=== PATIENT | female | born 1945 | race Caucasian/White ===

== ENCOUNTER 2019-04-29 09:46 | Outpatient (CLI) | payer MEDICARE, SELFPAY ==
--- NOTE | ~2019-04-29 | MM_ITS ---
EXAMINATION: MM screening stefanie BI w kaylah HISTORY: Screening mammogram, family history of breast cancer in her mother. TECHNIQUE: Craniocaudal and mediolateral oblique 3-D tomosynthesis images were obtained and synthetic 2-D images were generated. CAD analysis was submitted and interpreted. COMPARISON: 04/01/2018, 03/19/2017, 03/12/2016 BREAST PARENCHYMAL COMPOSITION: There are scattered areas of fibroglandular density. FINDINGS: Masses of the lower left breast have slowly decreased in size over multiple examinations, c onsistent with benign findings. There is no evidence of suspicious mass, calcification, or architectu ral distortion to suggest malignancy in either breast. There has been no suspicious interval change. IMPRESSION: 1. No mammographic evidence of malignancy. 2. Recommend routine screening mammography in one year. BI-RADS Category 2: Benign finding(s). Reviewed, dictated and finalized at location A. 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
== END 2019-04-29 09:47 | disposition home or self-care (01) ==
LOC: ANHIMG 09:57
PROVIDERS: PCP Family Medicine; Visit Provider Obstetrics & Gynecology
DX: Z12.31 Encounter for screening mammogram for malignant neoplasm of breast (principal)
CPT/HCPCS: 77063; 77067

== ENCOUNTER 2019-06-22 07:48 | Observation (INO) | payer MEDICARE, SELFPAY ==
[2019-06-22] VITALS (22 sets, daily range): BP systolic 102–142; BP diastolic 44–95; PULSE 60–86; RESP 10–20; TEMP 36.3–37.5; O2SAT 92–99
--- NOTE | ~2019-06-22 | US_ITS ---
EXAMINATION: US right upper quadrant DATE: 06/22/2019 09:39 INDICATION: Right upper quadrant abdominal pain, nausea and vomiting. TECHNIQUE: Multiple grayscale and Doppler ultrasound images of the abdomen were obtained. COMPARISON: None FINDINGS: The pancreas is normal in appearance. Portions of the pancreatic head and tail are poorly visualized. Liver has normal echogenicity and contour, with a smooth surface. No liver lesion identified. No int rahepatic biliary duct dilation suspected. Portal venous flow was seen in the hepatopetal, normal dir ection and has normal Doppler waveform. The gallbladder is normal in appearance. 2.6 x 2.0 x 1.6 cm a t the neck of the gallbladder which is dilated to 10.7 x 3.4 cm which is without evident wall thicken ing. Sonographic Voss sign was reported as positive by the mathematical scientist. The common bile duct measur es up to 6 mm which is within normal limits for age, tapering smoothly in the distal duct. The proxim al inferior vena cava and aorta are normal. Visualized portions of the right kidney demonstrates norm al echogenicity with no hydronephrosis. IMPRESSION: 1. Gallstone at the neck of the distended but otherwise normal-appearing gallbladder with positive so nographic Voss sign. Findings would be consistent with early acute cholecystitis. Reviewed, dictated and finalized at location A. IMPRESSION: 1. Gallstone at the neck of the distended but otherwise normal-appearing gallbl adder with positive sonographic Voss sign. Findings would be consistent with early acute cholecystitis.
--- NOTE | 2019-06-22 07:55 | PC.NURSE ---
Spoke with Estela at this time who informed that pt can only be tested if she is admitted for pneumonia and to keep her updated on pt status. 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
--- NOTE | 2019-06-22 08:18 | ED.ABDPAIN ---
HPI - Abdominal Pain General Chief Complaint: Abdominal Pain Stated Complaint: Gallbladder attack Time Seen by Provider: 06/22/19 07:51 Source: patient and RN notes reviewed Mode of arrival: ambulatory Limitations: no limitations History of Present Illness HPI narrative: A 73 y/o female pt has presented to the ED with c/o upper abdominal pain that radiates to her lower back after being referred by Dr. Westfall with concerns of gallbladder issues. Pt notes that the pain began last night at 23:30, and states that the pain is a 10/10 in severity. Pt states that she has a little associated diarrhea, but she notes that she has a h/o c diff for 2 years. She has been told that 10% of the c diff is still present. Pt denies any factors that make the pain worse, but notes that her pain subsided for 3 hours after taking 2 Tylenol, another pain medication pill, and lying on a heating pad. She denies CP, N/V, dysuria, frequency, hematuria, GONZALEZ, fever, or chills. She does state that 2 weeks ago she experienced vomiting. She notes a h/o HTN, hypothyroidism, cataracts, knee surgeries, and recent travel to [place]. Pt denies a h/o HLD, smoking, or drinking. MD elicited complaint: abdominal pain Pertinent past history: other (C diff for 2 year) Onset (ago): hour(s) (8) Location: other (upper) Severity: severe Pain scale (0-10): 10 Radiation: back (lower) Exacerbating factors: nothing Relieving factors: other (taking Tylenol, another pain medication pill, and lying on a heating pack) Associated symptoms: diarrhea Related Data Patient : No Home Medications Medication Instructions Recorded Confirmed Saccharomyces boulardii 250 mg 250 mg PO BID 05/21/19 capsule aspirin 81 mg tablet,delayed 81 mg PO DAILY 05/21/19 release cholecalciferol (vitamin D3) 10 10 mcg PO DAILY 05/21/19 mcg (400 unit) capsule levothyroxine 75 mcg tablet 75 mcg PO DAILY 05/21/19 cholestyramine (with sugar) 4 g PO BID 06/22/19 vancomycin 125 mg PO TID 06/22/19 Allergies Allergy/AdvReac Type Severity Reaction Status Date / Time No Known Allergies Allergy Verified 06/22/19 08:04 Review of Systems Review of Systems: All systems reviewed & are unremarkable except as noted in HPI and below Constitutional: Constitutional: Denies chills and Denies fever(s) Cardiovascular: Cardiovascular: Denies chest pain Gastrointestinal: Gastrointestinal: Reports abdominal pain (upper), Reports diarrhea, Denies nausea and Denies vomiting (2 weeks ago experienced vomiting) Genitourinary: Genitourinary: Denies hematuria, Denies nocturia and Denies dysuria Musculoskeletal: Musculoskeletal: Reports back pain (lower) Neurologic: Denies headache(s) PMFSH Past Medical History Medical History Anemia in chronic illness C. difficile colitis Family history of malignant neoplasm of breast Fatigue Fibroids H/O cataract HTN (hypertension) Hypothyroidism Hypothyroidism (acquired) Insomnia due to anxiety and fear Leiomyoma of uterus, unspecified Phobic anxiety disorder, unspecified Rectal polyp Surgical History Surgical History H/O hemorrhoidectomy History of knee surgery Family History Family History Sibling Hypertension Father Cerebrovascular accident Patient's father is , Onset Age: 90 Mother Family history of malignant neoplasm of breast in first degree relative, Onset Age: 48 Family history of cardiovascular disease Social History Social History Smoking status: Never smoker Alcohol intake: current Substance use: never Exam Narrative: Exam Narrative: GENERAL: Uncomfortable-appearing, well-nourished, and in no acute distress. HEAD: Normocephalic, atraumatic. ENT: Mucous membranes moist. CHEST: Shiv
[2019-06-22] MEDS: MORPHINE SULFATE 4 MG/ML INJ IV PUSH ×2 (08:34→10:45)
[2019-06-22] MEDS: ONDANSETRON INJ 4 MG/2 ML VIAL IV PUSH (08:40)
[2019-06-22 08:45] LABS: Basophils Percent Auto 0.3 % (0.2-1.2); Eosinophils Absolute Auto 0.1 K/mm3 (0-0.3); Eosinophils Percent Auto 0.6 % (0-4.4); Hematocrit 36.7 % (37.0-47.0); Hemoglobin 11.4 g/dL (12.0-15.0); Immature Granulocyte Absolute 0.03 K/mm3 (0.00-0.031); Immature Granulocyte Percent A 0.4 % (0-0.5); Lymphocytes Absolute Auto 1.48 K/mm3 (0.9-3.2); Mean Corpuscular HGB Conc 31.1 g/dl (32-36); Mean Corpuscular Hemoglobin 26.5 pg (26-34); Mean Corpuscular Volume 85.3 fl (80-100); Mean Platelet Volume 11.1 fl (7.4-10.4); Monocytes Absolute Auto 0.5 K/mm3 (0.1-0.6); Neutrophils Absolute Auto 5.7 K/mm3 (1.3-6.7); Neutrophils Percent Auto 73.7 % (45.5-73.1); Platelet Count Result 263 k/mm3 (150-375); Red Cell Distribution Width 14.5 % (11.5-14.5); White Blood Count 7.8 K/mm3 (4.5-10.0)
[2019-06-22 08:54] LABS: Potassium 3.7 mmol/L (3.4-5.0)
[2019-06-22 08:57] LABS: Alanine Aminotransferase 13 U/L (4-35); Albumin Level 4.2 g/dL (3.5-5.1); Alkaline Phosphatase 94 U/L (38-126); Aspartate Amino Transferase 22 U/L (14-36); Bilirubin,Total 0.4 mg/dL (0.2-1.3); Blood Urea Nitrogen 9 mg/dL (7-17); Calcium 8.9 mg/dL (8.4-10.2); Carbon Dioxide 26 mmol/L (22-30); Chloride 99 mmol/L (98-107); Estimated CRCL calculation 67 ml/min; Estimated Glomerular Filt Rate > 60; Glucose 138 mg/dL (65-105); Lipase 86 U/L (23-300); Sodium 135 mmol/L (137-145)
[2019-06-22 09:24] LABS: Add Urine Microscopic? YES; Appearance Urine Clear (Clear); Bilirubin Urine Negative (Negative); Blood Urine 3+ (Negative); Color Urine Yellow (Yellow); Glucose Urine UA Negative (Negative); Ketones Urine 1+ mg/dL (Negative); Leukocyte Esterase Ur Negative LEU/UL (Negative); Mucus Urine Rare /lpf; Nitrate Urine Negative (Negative); Protein Urine 1+ mg/dL (Negative); RBC Urine 21-50 /hpf (0-2); Specific Grav Ur 1.014 (1.001-1.035); Squamous Epithelial Cell Urine Rare /hpf (Few); Urobilinogen Urine Negative mg/dL (<2.0); WBC Urine 0-3 /hpf
--- NOTE | 2019-06-22 10:32 | ECG_ITS ---
Measurements Intervals [place] Rate: 63 P: 31 UT: 168 QRS: 23 QRSD: 104 T: 57 QT: 418 QTc: 428 Interpretive Statements SINUS RHYTHM DELAYED PRECORDIAL R/S TRANSITION NONSPECIFIC T-WAVE ABNORMALITY- ANTERIOR LEADS BASELINE ARTIFACT- I, II, AVR, V3 BORDERLINE ECG Electronically Signed On 06-22-2019 11:42:01 CDT by Yair Gonzalez D.O.
[2019-06-22 10:39] LABS: Prothrombin Time 12.4 Seconds (11.1-14.7)
[2019-06-22 10:40] LABS: Partial Thromboplastin Time 27.2 SECONDS (22.3-36.8)
--- NOTE | 2019-06-22 11:30 | PM.IMHP ---
H&P: HPI History of Present Illness Chief complaint: RUQ pain Narrative: Abby Cole is a 73 year old female who presented to the ED this AM with RUQ pain that started last night. She has had a few episodes like this in the past 2 weeks but none this severe. She noted attacks after eating Brisa cheesesteak and lasagna. She denies fevers/chills, change in bowel habits or other associated symptoms. Review of Systems Review of Systems: All systems reviewed & are unremarkable except as noted in HPI and below Eyes: Eyes: Denies change in vision ENT: Denies hearing loss, Denies neck pain and Denies sore throat Cardiovascular: Cardiovascular: Denies chest pain and Denies dyspnea Respiratory: Respiratory: Denies cough, Denies dyspnea and Denies wheezing Gastrointestinal: Gastrointestinal: Reports as per HPI Genitourinary: Genitourinary: Denies hematuria and Denies dysuria Musculoskeletal: Musculoskeletal: Denies arthralgias, Denies joint swelling and Denies neck pain Allergic/Immunologic: Allergic/Immunologic: Denies wheezing PMFSH Past Medical History Medical History Anemia in chronic illness C. difficile colitis Family history of malignant neoplasm of breast Fatigue Fibroids H/O cataract HTN (hypertension) Hypothyroidism Hypothyroidism (acquired) Insomnia due to anxiety and fear Leiomyoma of uterus, unspecified Phobic anxiety disorder, unspecified Rectal polyp Surgical History Surgical History H/O hemorrhoidectomy History of knee surgery Family History Family History Sibling Hypertension Father Cerebrovascular accident Patient's father is , Onset Age: 90 Mother Family history of malignant neoplasm of breast in first degree relative, Onset Age: 48 Family history of cardiovascular disease Social History Social History Smoking status: Never smoker Alcohol intake: current Substance use: never Meds Home Medications and Allergies Home Medications Medication Instructions Recorded Confirmed Type Saccharomyces boulardii 250 mg 250 mg PO BID 05/21/19 History capsule aspirin 81 mg tablet,delayed 81 mg PO DAILY 05/21/19 History release cholecalciferol (vitamin D3) 10 10 mcg PO DAILY 05/21/19 History mcg (400 unit) capsule levothyroxine 75 mcg tablet 75 mcg PO DAILY 05/21/19 History escitalopram oxalate 20 mg tablet 20 mg PO DAILY #90 tablet 06/18/19 Rx cholestyramine (with sugar) 4 g PO BID 06/22/19 History vancomycin 125 mg PO TID 06/22/19 History Allergies Allergy/AdvReac Type Severity Reaction Status Date / Time No Known Allergies Allergy Verified 06/22/19 08:04 Vital Signs Vital Signs - 24 hr 06/22/19 07:54 06/22/19 10:02 06/22/19 10:48 Temperature 36.5 C Pulse Rate 66 67 63 Respiratory Rate 17 18 20 Blood Pressure 125/75 142/64 H 133/89 Pulse Oximetry 99 97 98 Exam Const: General: alert; No acute distress Orientation/consciousness: patient oriented x3 Limitations: no limitations HENMT: Head: normocephalic and atraumatic Ears: hearing grossly normal bilaterally General nose exam: Normal external nose present and Normal nares present Mouth: Yes Normal oral and palatal mucosa present and Yes moist mucous membranes Eyes: General: appearance normal, both eyes and all related structures Conjunctivae: conjunctivae normal Sclera: sclerae normal Pupils: Equal, round and reactive pupils present EOM: EOMs intact bilaterally Neck: Neck: normal visual inspection, full ROM, no lymphadenopathy, supple and no JVD Lymphatic: no lymphadenopathy noted Chest: Chest palpation & inspection: normal inspection of the chest Resp: Effort & Inspection: normal respiratory effort and able to speak in complete sente
--- NOTE | 2019-06-22 11:36 | WPDANESEPPF ---
Anes - Initial Pre Proc Eval Procedure: Operation Date: 06/22/19 11:00 Proposed Procedures p Laparoscopic Cholecystectomy - Elias Estrella DO Date/Time: 06/22/19 11:36 Surgeon: Elias Estrella DO Pre Op Diagnosis: RUQ pain Patient Data Age: 73 Gender: F Height: 5 ft 3 in Weight: 72.6 kg Last Vital Signs Temp 97.7 F 06/22/19 07:54 Pulse 63 06/22/19 10:48 Resp 20 06/22/19 10:48 BP 133/89 06/22/19 10:48 Pulse Ox 98 06/22/19 10:48 Allergies Allergy/AdvReac Type Severity Reaction Status Date / Time No Known Allergies Allergy Verified 06/22/19 08:04 Home Medications Medication Instructions Recorded Confirmed Type Saccharomyces boulardii 250 mg 250 mg PO BID 05/21/19 History capsule aspirin 81 mg tablet,delayed 81 mg PO DAILY 05/21/19 History release cholecalciferol (vitamin D3) 10 10 mcg PO DAILY 05/21/19 History mcg (400 unit) capsule levothyroxine 75 mcg tablet 75 mcg PO DAILY 05/21/19 History escitalopram oxalate 20 mg tablet 20 mg PO DAILY #90 tablet 06/18/19 Rx cholestyramine (with sugar) 4 g PO BID 06/22/19 History vancomycin 125 mg PO TID 06/22/19 History Laboratory Tests 06/22/19 06/22/19 06/22/19 08:36 08:36 08:36 WBC 7.8 K/mm3 K/mm3 (4.5-10.0) RBC 4.30 M/mm3 M/mm3 (4.2-5.4) Hgb 11.4 g/dL L g/dL (12.0-15.0) Hct 36.7 % L % (37.0-47.0) MCV 85.3 fl fl (80-100) MCH 26.5 pg pg (26-34) MCHC 31.1 g/dl L g/dl (32-36) RDW 14.5 % % (11.5-14.5) Plt Count 263 k/mm3 k/mm3 (150-375) MPV 11.1 fl H fl (7.4-10.4) Immature Gran % (Auto) 0.4 % % (0-0.5) Neut % (Auto) 73.7 % H % (45.5-73.1) Lymph % (Auto) 19.0 % % (18.3-44.2) [place] % (Auto) 6.0 % % (2.6-8.5) Eos % (Auto) 0.6 % % (0-4.4) Baso % (Auto) 0.3 % % (0.2-1.2) Lymph # (Auto) 1.48 K/mm3 K/mm3 (0.9-3.2) [place] # (Auto) 0.5 K/mm3 K/mm3 (0.1-0.6) Eos # (Auto) 0.1 K/mm3 K/mm3 (0-0.3) Baso # (Auto) 0.0 K/mm3 K/mm3 (0.0-0.1) Abs Immat Gran (auto) 0.03 K/mm3 K/mm3 (0.00-0.031) Absolute Neuts (auto) 5.7 K/mm3 K/mm3 (1.3-6.7) Absolute Nucleated RBC 0.0 K/mm3 K/mm3 (0.0-0.012) Nucleated RBC % 0.0 % % (0.0-0.2) PT 12.4 Seconds Seconds (11.1-14.7) INR 1.0 APTT 27.2 SECONDS SECONDS (22.3-36.8) Sodium 135 mmol/L L mmol/L (137-145) Potassium 3.7 mmol/L mmol/L (3.4-5.0) Chloride 99 mmol/L mmol/L (98-107) Carbon Dioxide 26 mmol/L mmol/L (22-30) BUN 9 mg/dL mg/dL (7-17) Creatinine 0.60 mg/dL L mg/dL (0.7-1.0) Estim Creat Clear Calc 67 ml/min ml/min Estimated GFR > 60 (59 - ) Glucose 138 mg/dL H mg/dL (65-105) Calcium 8.9 mg/dL mg/dL (8.4-10.2) Total Bilirubin 0.4 mg/dL mg/dL (0.2-1.3) AST 22 U/L U/L (14-36) ALT 13 U/L U/L (4-35) Alkaline Phosphatase 94 U/L U/L (38-126) Total Protein 7.0 g/dL g/dL (6.3-8.2) Albumin 4.2 g/dL g/dL (3.5-5.1) Lipase 86 U/L U/L (23-300) Urine Color Urine Appearance Urine pH Ur Specific [place] Urine Protein Urine Glucose (UA) Urine Ketones Ur Blood (Man) Urine Nitrate Urine Bilirubin Urine Urobilinogen Leukocyte Esterase Rfl Urine RBC Urine WBC Ur Squamous Epith Cells Urine Mucus 06/22/19 09:00 WBC RBC Hgb Hct MCV MCH MCHC RDW Plt Count MPV Immature Gran % (Auto) Neut % (Auto) Lymph % (Auto) [place]
[2019-06-22] MEDS: LACTATED RINGERS 1,000 ML 30 ML IV CONT ×2 (11:40→13:02)
[2019-06-22] MEDS: BUPIVACAINE/EPINEPHRINE 0.5% 30 ML VIAL INFILTRATE (11:43)
[2019-06-22] MEDS: ceFAZolin 2 GM/D5W 50 ML 2 GM/50 ML BAG IVPB (11:43)
--- NOTE | 2019-06-22 12:42 | SUR.OPER ---
EBL:20CC
--- NOTE | 2019-06-22 12:49 | PM.PROC ---
Procedure Note - Detailed Date of procedure: 06/22/19 Pre-op diagnosis: Acute calculous cholecystitis Post-op diagnosis: same Procedure performed: Laparoscopic Cholecystectomy Description of procedure: Procedure as well as risks, benefits, and alternatives were discussed with patient. Written consent was obtained and placed in chart prior to procedure. The patient was brought back to surgical suite. Patient was placed in supine position on operating table. Time-out was done to confirm patient and procedure. Patient was then intubated by the anesthesia department. Abdomen was prepped and draped in sterile fashion using chlorhexidine prep. 0.5% bupivacaine with epinephrine was infiltrated at each site of incision. An 11 millimeter vertical incision was made at the inferior portion of the umbilicus using a 15 blade scalpel. Blunt dissection was carried down to the linea alba. The linea alba was then incised using a 15 blade scalpel. The peritoneum was then bluntly entered. An 11 millimeter trocar was inserted and cabon dioxied insuflation was used to create a pneumoperitoneum. The camera was inserted and the abdomen was inspected. The patient was placed in reverse Trendelenberg position and rotated slightly to the left. A 5 millimeter incision was made in the epigastric region, and a 5 millimeter trocar was inserted under direct visualization. Two 5 millimeter incisions were made in the right upper quadrant, and two 5 millimeter trocars were inserted under direct visualization. The gallbladder was identified and grasped at the fundus and retracted superiorly. It was then grasped at the infundibulum retracted laterally. Careful dissection around the neck of the gallbladder was performed using blunt dissection with a [place] grasper and hook electrocautery. The cystic duct was identified, and a window was created behind it. The cystic artery was also identified and a window was created behind it. The critical view of safety was identified, visualizing the cystic duct running directly into the neck of the gallbladder, and the cystic artery running directly into the wall of the gallbladder. A 5 millimeter clip asphalt blender was then used to place 2 clips proximally and 1 clip distally on both the cystic duct and cystic artery. They were then both transected using endoscopic scissors. Once safely away from the randall hepatitis, the gallbladder was dissected free from the liver bed using hook electrocautery. Hemostasis was achieved along the way. The gallbladder was removed completely and then removed through the umbilical port. The liver bed was then inspected. Hemostasis appeared adequate, and our clips appeared secure. The area was gently irrigated with sterile saline. No other abnormalities were seen. The patient was flattened out in bed, and 1 final inspection was made around the abdominal cavity. The ports were then removed under direct visualization, the camera was removed, and the pneumoperitoneum was released. The fascia of the umbilical incision was approximated using an 0 Vicryl [id number] suture. The skin of the incisions was approximated using 4-0 Monocryl subcuticular sutures. Exofin glue was applied on top. The patient was then awakened from anesthesia, extubated, and transferred to recovery. Anesthesia: GETA and local (0.5% bupivicaine with epinephrine) Surgeon: Elias Estrella DO Estimated blood loss (mL): 20 Complications: No immediate complications Condition: stable Findings: This is a 73-year-old woman who presented to the emergency department with right upper quadrant pain that began last night. He has had intermittent episodes like this over the past 2 weeks, but none this severe. Her pain has been constant since last night. She received pain meds emergency department, but these helped temporarily. Ultrasound in the emergency department showed evidence a large gallstone at the neck of the gallbladder with gallbladder distent
[2019-06-22] MEDS: HYDROMORPHONE HCL 1 MG/ML INJ 0.5 MG IV PUSH (13:27)
--- NOTE | 2019-06-22 13:29 | SUR.PHASEI ---
1326; PT C/O SORENESS TO ABDOMEN.
--- NOTE | 2019-06-22 15:26 | SUR.PHASEII ---
1452; PT ARRIVED INTO OPR WITH O2 PER NC. DROPPED TO 2L. RESP EVEN UNLABORED. P,W,D. DENIES PAIN. PT REMAINS IN STRETCHER. DAUGHTER AT BEDSIDE
--- NOTE | 2019-06-22 15:29 | SUR.PHASEII ---
1520; ATTEMPTED TO REMOVED OXYGEN, SAO2 DROPS TO 88%, THEN REBOUNDS TO 96% WITH SLOW DEEP BREATHS O2 2L NC REAPPLIED. PT MUCH MORE AWAKE NOW. EATING CRACKERS AND DRINKING WATER.
--- NOTE | 2019-06-22 15:54 | SUR.PHASEII ---
1545; INCENTIVE SPIROMETER DISCUSSED WITH PT PT ABLE TO PROPERLY DEMONSTRATE. PULLED 1250. INSTRUCTED TO DO 10X/HR AT HOME WHILE AWAKE. O2 DECREASED TO 1L NC.
--- NOTE | 2019-06-22 16:30 | SUR.PHASEII ---
1600; O2 REMOVED. 1615; PT USED I.S. PULLED 1500.
--- NOTE | 2019-06-22 16:46 | SUR.PHASEII ---
1640; PT SAO2 DROPS TO 88% WHEN SHE DOZES OFF. ENCOURAGED SLOW DEEP BREATHS. SAO2 QUICKLY INCREASES TO 97%. FAMILY AT BEDSIDE.
--- NOTE | 2019-06-22 17:00 | SUR.PHASEII ---
1655; PT WALKED TO BATHROOM. GAIT STEADY.
--- NOTE | 2019-06-22 17:23 | SUR.PHASEII ---
1720; PT MUCH MORE AWAKE NOW. RESP EVEN UNLABORED. P,W,D. DENIES PAIN OR SOB. MUCH LESS COUGHING NOW.
--- NOTE | 2019-06-22 17:30 | SUR.PHASEII ---
1730; PT SITTING IN RECLINER. SAO2 WILL DROP TO 88% BRIEFLY THEN QUICKLY RISES TO 96=97%. DENIES PAIN OR SOB. DR VALLECILLO NOTIFIED. INSTRUCTED TO CALL DR PEOPLES. 173; CALLED PLACED TO DR PEOPLES THRU EXCHANGE.
--- NOTE | 2019-06-22 17:56 | SUR.PHASEII ---
1750; SPOKE TO DR EPOPLES. PT TO BE ADMITTED. 175; WALKED TO BATHROOM GAIT STEADY. VOIDED. 1800; PT IN RECLINER. PLACED ON O2 2L NC.
--- NOTE | 2019-06-22 18:36 | SUR.PHASEII ---
182; REPORT FAXED TO [facility]/SURG
[2019-06-23 00:08] VITALS: BP 134/61; PULSE 62; RESP 16; TEMP 36.3; O2SAT 98
[2019-06-23 06:00] VITALS: BP 128/54; PULSE 71; RESP 16; TEMP 36.5; O2SAT 98
[2019-06-23 07:33] VITALS: O2SAT 96
--- NOTE | 2019-06-23 11:47 | PC.NURSE ---
Pt ambulated and took 2 laps around the floor, spo2 95% after pts walk.
--- NOTE | 2019-06-23 12:05 | PM.DS ---
DS: Diagnosis Admitting Diagnosis Admitting Diagnosis: Calculus of gallbladder with acute cholecystitis without obstruction Discharge Diagnosis (1) Acute cholecystitis: Code(s): K81.0 - Acute cholecystitis Status: Acute DS: Summary Hospital Course Reason for hospitalization: Hypoxia and PACU after laparoscopic cholecystectomy Hospital Course: This is a 73-year-old woman who presented to the emergency department yesterday with right upper quadrant abdominal pain for the past day. She had had multiple episodes over the past 2 weeks but this became constant over the past day. Ultrasound in the emergency department showed evidence of acute cholecystitis with a large stone lodged at the neck of the gallbladder. She was taken for urgent laparoscopic cholecystectomy. Surgery was uncomplicated and she was initially planned to be discharged in recovery. She continued to have problems with decreased oxygen saturations when she was off supplemental oxygen in recovery. She was then admitted as an outpatient extended recovery to continue with supplemental oxygen until she was maintaining her sats at room air. On postop day 1, her pain was well controlled, she was ambulating without any signs of oxygen desaturation. She was tolerating her low-fat diet. She was then discharged on postop day 1. Status at Discharge Functional status at discharge: independent ambulation Overall status at discharge: patient is progressing back to baseline Time Spent with Patient Time attestation: Total time spent providing and/or coordinating discharge services: Time spent: Less than 30 minutes Exam Resp: Effort & Inspection: normal respiratory effort Auscultation: clear to auscultation bilaterally Cardio: Rate: regular rate Rhythm: regular rhythm GI: Inspection: non-distended GI Palp: Yes Soft to palpation and Yes Tenderness to palpation present (GI) (Incisional) DS: Data Data Completed and Pending Pending studies at discharge: Pending at discharge 06/22/19 12:14 Surgical [PTH] Routine Discharge Plan Discharge Patient Disposition: Home, Self-Care Discharge Instructions: DISCHARGE INSTRUCTION SHEET FOR HERNIA, GALLBLADDER AND APPENDIX SURGERIES DR. PEOPLES PATIENT TO TAKE HOME 1. May shower in 24 hours, no soaking in bath x 2weeks. 2. Call office for: Wound increasingly painful or bleeding Vomiting Fever of greater than 101 degrees 3. If no bowel movement for three days, take 1 oz. (30 ml) Milk of Magnesia or MiraLax 17g 1 to 2 times daily. 4. No heavy lifting > 10-15 pounds x weeks for hernia repairs and 2 weeks for laparoscopic cholecystectomy or appendectomy. 5. No driving for 3 days or while taking narcotic pain medications. 6. Ice to surgical site for 48 hours (30 min on, then 30 min off). 7. Up walking 10-30 minutes three times per day. 8. Resume previous home medications. 9. Follow-up 10-14 days in office for wound check or as previously scheduled. ([id number]) 10. Oral pain medications prescription to be sent to pharmacy. Take Tylenol 500mg every 6 hours and Ibuprofen 600mg every 6 hours for the first 2 days, then as needed. 11. NUTRITION: Start out by drinking fluids and increase your diet as tolerated. If you experience nausea, try dry toast, crackers, and 7-UP. If nausea or vomiting persists, contact your surgeon?s office. 12. Gallbladders-Low Fat Diet for 2 weeks (send care note of low fat diet) 13. Inguinal Hernias-wear scrotal support for 48 hours 14. Abdominal Hernias-if sent home with abdominal binder, wear for the first 2 weeks (may remove to shower or at night to sleep). NO TYLENOL BEFORE 4:00PM TODAY
--- NOTE | 2019-06-23 14:56 | WPDANESPN ---
Anes - Prog Note Post-Op Date/Time: 06/23/19 14:00 Cardiovascular status: normal Respiratory status: normal Airway patency: baseline Mental status: baseline Post-Op hydration status: normal Vital Signs: Last Vital Signs Temp 36.5 C 06/23/19 06:00 Pulse 71 06/23/19 06:00 Resp 16 06/23/19 06:00 BP 128/54 L 06/23/19 06:00 Pulse Ox 96 06/23/19 07:33 Pain Score (VAS): 0/10. Patient resting in bed at time of assessment, appears comfortable. I/O: Intake & Output 06/22/19 06/23/19 06/23/19 23:59 07:59 15:59 Intake Total 150 Output Total 1100 Balance 150 -1100 Laboratory Tests 06/22/19 08:36 06/22/19 08:36 Post-procedural complaints: none Patient Feedback: Patient satisfied with anesthetic care.
== END 2019-06-23 14:17 | disposition home or self-care (01) ==
LOC: ANHED 10:42 → ANHSURGERY 10:51 → ANH3MEDSUR 19:07 → ANHSURGERY 06-23 12:34 → ANH3MEDSUR 06-23 12:34
PROVIDERS: Admitting Provider Surgery; Emergency Provider Emergency Medicine; PCP Family Medicine; Visit Provider Surgery
PROC: 0FT44ZZ Resection of Gallbladder, Percutaneous Endoscopic Approach (ICD-10-PCS; CPT 47562; principal; 2019-06-22 11:00)
DX: K80.12 Calculus of gallbladder with acute and chronic cholecystitis without obstruction (principal); R09.02 Hypoxemia; I10 Essential (primary) hypertension; E03.9 Hypothyroidism, unspecified; F40.9 Phobic anxiety disorder, unspecified; F51.05 Insomnia due to other mental disorder; D63.8 Anemia in other chronic diseases classified elsewhere; Z79.82 Long term (current) use of aspirin; Z79.899 Other long term (current) drug therapy; Z86.19 Personal history of other infectious and parasitic diseases
CPT/HCPCS: 47562; 36415; 76705; 80053; 81001; 83690; 85025; 85610; 85730; 88304; 93005; 96361; 96374; 96375; 96376; 99285; A9270; G0378; J0131; J0690; J1100; J1170; J2270; J2405; J2704; J2710; J3010; J7030; J7120

== ENCOUNTER 2019-09-28 13:49 | Outpatient (CLI) | payer MEDICARE, SELFPAY ==
--- NOTE | ~2019-09-28 | DEXA_ITS ---
Bone Density Report Name: Abby Cole Age: 74 Sex: Female Ethnicity: White Date of : 1945 Indication: postmenopausal; parental hip fracture; height loss; Referring Provider: ACOSTA THOMAS Study: Bone densitometry was performed. Exam Date: September 28, 2019 Accession number: [id number] Bone Density: Region BMD T-score Z-score Classification AP Spine (L1-L4) 1.111 0.6 3.0 Normal Femoral Neck (Left) 0.743 -1.0 1.1 Normal Total Hip (Left) 0.954 0.1 1.9 Normal Total Hip Bilateral Avg 0.929 -0.1 1.7 Normal Femoral Neck (Right) 0.686 -1.5 0.6 Osteopenia Total Hip (Right) 0.904 -0.3 1.5 Normal World Health Organization criteria for BMD impression classify patients as: Normal (T-score at or above -1.0), Osteopenia (T-score between -1.0 and -2.5), or Osteoporosis (T-score at or below -2.5). 10-year Fracture Risk(1): Major Osteoporotic Fracture 18% Hip Fracture 8.6% Reported Risk Factors: [place] (), Neck BMD=0.686, BMI=27.5, parental fracture (1) FRAX(R) Version 3.08. Fracture probability calculated for an untreated patient. Fracture probability may be lower if the patient has received treatment. Previous Exams: Region Exam Age BMD T-score BMD Change BMD Change Date g/cm2 vs Baseline vs Previous AP Spine(L1-L4) 09/28/2019 74 1.111 0.6 0.097(9.5%)# 0.023(2.1%)* 09/25/2016 71 1.088 0.4 0.073(7.2%)# 0.033(3.1%)* 08/02/2014 68 1.055 0.1 0.041(4.0%)# 0.064(6.5%)# 07/28/2012 66 0.991 -0.5 -0.024(-2.3%)# -0.062(-5.9%)# 05/09/2010 64 1.053 0.1 0.039(3.8%)* 0.039(3.8%)* 04/15/2008 62 1.015 -0.3 Total Hip(Left) 09/28/2019 74 0.954 0.1 -0.003(-0.3%)# -0.041(-4.2%)* 09/25/2016 71 0.996 0.4 0.039(4.1%)# 0.009(0.9%) 08/02/2014 68 0.987 0.4 0.030(3.1%)# -0.032(-3.1%)# 07/28/2012 66 1.019 0.6 0.062(6.5%)# 0.052(5.4%)# 05/09/2010 64 0.966 0.2 0.010(1.0%) 0.010(1.0%) 04/15/2008 62 0.957 0.1 Total Hip(Right) 09/28/2019 74 0.904 -0.3 -0.021(-2.3%)# -0.063(-6.5%)* 09/25/2016 71 0.967 0.2 0.041(4.5%)# 0.028(3.0%)* 08/02/2014 68 0.939 0.0 0.013(1.4%)# -0.003(-0.3%)# 07/28/2012 66 0.941 0.0 0.016(1.7%)# 0.025(2.8%)# 05/09/2010 64 0.916 -0.2 -0.009(-1.0%) -0.009(-1.0%) 04/15/2008 62 0.925 -0.1 *Denotes significance at 95% confidence level, LSC for AP Spine = 0.022 g/cm2, LSC for Total Hip = 0.027 g/cm2 Clinical Information Provided by Patient:
== END 2019-09-28 13:50 | disposition home or self-care (01) ==
PROVIDERS: PCP Family Medicine; Visit Provider Obstetrics & Gynecology
DX: Z78.0 Asymptomatic menopausal state (principal); M85.851 Other specified disorders of bone density and structure, right thigh
CPT/HCPCS: 77080

== ENCOUNTER 2020-06-27 09:41 | Outpatient (CLI) | payer MEDICARE, SELFPAY ==
--- NOTE | ~2020-06-27 | MM_ITS ---
EXAMINATION: MM screening stefanie BI w kaylah HISTORY: Screening mammogram TECHNIQUE: Craniocaudal and mediolateral oblique 3-D tomosynthesis images were obtained and synthetic 2-D images were generated. CAD analysis was submitted and interpreted. COMPARISON: , 04/01/2018, 03/19/2017 bilateral digital screening mammogram examinations BREAST PARENCHYMAL COMPOSITION: There are scattered areas of fibroglandular density. FINDINGS: Mildly diminished size of a circumscribed low-density opacity in the lower inner quadrant o f the left breast since 03/19/2017. The mammographic features are benign and the diminished size over serial examinations further supports benign diagnosis. There is no evidence of suspicious mass, calcification, or architectural distortion to suggest malign guerrero in either breast. There has been no suspicious interval change. IMPRESSION: 1. No mammographic evidence of malignancy. 2. Recommend routine screening mammography in one year. BI-RADS Category 2: Benign finding(s). Reviewed, dictated and finalized at location A.
== END 2020-06-27 09:42 | disposition home or self-care (01) ==
LOC: ANHIMG 09:46
PROVIDERS: PCP Family Medicine; Visit Provider Obstetrics & Gynecology
DX: Z12.31 Encounter for screening mammogram for malignant neoplasm of breast (principal)
CPT/HCPCS: 77063; 77067

== ENCOUNTER 2020-11-16 01:29 | Day surgery (SDC) | payer MEDICARE, SELFPAY ==
[2020-10-30 14:38] VITALS: BMI 28.3
--- NOTE | 2020-11-07 11:32 | PC.NURSE ---
PT RESCHEDULED FROM 11/08/2020- PT INFORMATION REVIEWED AND PT DENIES ANY CHANGES SINCE INTERVIEW ON 10/30/2020
--- NOTE | 2020-11-15 19:54 | PM.HPGS ---
History of Present Illness History of Present Illness Consent: Risks, benefits, and alternatives have been discussed and questions answered. Patient agrees to proceed with procedure. Chief complaint: diarrhea Narrative: Abby Cole is a 75 year old female with chronic diarrhea, who has been treated for C dificie colitis for over one year, but cultures are now negative. Unfortunately she continues to have diarrhea, raising the possibility of inflammatory bowel disease. Review of Systems Review of Systems: All systems reviewed & are unremarkable except as noted in HPI and below PMFSH Past Medical History Medical History Anemia in chronic illness C. difficile colitis Family history of malignant neoplasm of breast Fatigue Fibroids H/O cataract HTN (hypertension) Hypothyroidism Hypothyroidism (acquired) Insomnia due to anxiety and fear Leiomyoma of uterus, unspecified Overweight (BMI 25.0-29.9) Phobic anxiety disorder, unspecified Rectal polyp Surgical History Surgical History H/O hemorrhoidectomy History of knee surgery S/P cholecystectomy (~05/2019) Family History Family History Sibling Hypertension Father Cerebrovascular accident Patient's father is , Onset Age: 90 Mother Family history of malignant neoplasm of breast in first degree relative, Onset Age: 48 Family history of cardiovascular disease Social History Social History Alcohol intake: former Substance use: never Substance use type: does not use Living arrangements: with family Gender identity (if verbalized by the patient): Female Spiritual care concerns: No Agree to blood products: Yes Meds Home Medications and Allergies Home Medications Medication Instructions Recorded Confirmed Type aspirin 81 mg tablet,delayed 81 mg PO DAILY 05/21/19 11/07/20 History release cholecalciferol (vitamin D3) 10 10 mcg PO DAILY 05/21/19 11/07/20 History mcg (400 unit) capsule lutein 25 mg-zeaxanthin 5 mg 1 cap PO DAILY 03/01/20 11/07/20 History capsule omega-3 fatty acids 1,500 mg PO DAILY 06/02/20 11/07/20 History metoprolol succinate 25 mg 25 mg PO DAILY #90 tablet 08/09/20 11/16/20 Rx tablet,extended release 24 hr Synthroid 125 mcg tablet See Rx Instructions .ROUTE 08/22/20 11/16/20 Rx .COMPLEX #45 tablet NS melatonin 10 mg capsule 5 mg PO QHS 09/08/20 11/07/20 History escitalopram oxalate 20 mg tablet 20 mg PO DAILY #90 tablet 10/16/20 11/07/20 Rx Saccharomyces boulardii 250 mg 250 mg PO BID 10/24/20 11/07/20 History capsule Allergies Allergy/AdvReac Type Severity Reaction Status Date / Time No Known Allergies Allergy Verified 11/07/20 11:31 Exam Resp: Auscultation: clear to auscultation bilaterally Cardio: Rate: regular rate Rhythm: regular rhythm GI: GI Palp: Yes Soft to palpation and No Tenderness to palpation present (GI) Assessment and Plan Assessment and plan (1) Chronic diarrhea: Code(s): K52.9 - Noninfective gastroenteritis and colitis, unspecified Status: Acute Assessment and Plan: Colonoscopy with possible biopsy or polypectomy or cautery or injection of substances.
[2020-11-16 06:22] VITALS: BP 99/59; PULSE 95; TEMP 36; O2SAT 99; BMI 28.6
[2020-11-16] MEDS: LACTATED RINGERS 1,000 ML 150 ML IV CONT (06:35)
--- NOTE | 2020-11-16 07:19 | WPDANESEPPF ---
Anes - Initial Pre Proc Eval Procedure: Operation Date: 11/16/20 07:30 Proposed Procedures p Colonoscopy - Wes Santos MD Date/Time: 11/16/20 07:19 Surgeon: Wes Santos MD Pre Op Diagnosis: diarrhea Patient Data Age: 75 Gender: F Height: 1.63 m Weight: 75.7 kg Last Vital Signs Temp 96.8 F L 11/16/20 06:22 Pulse 95 11/16/20 06:22 BP 99/59 L 11/16/20 06:22 Pulse Ox 99 11/16/20 06:22 Allergies Allergy/AdvReac Type Severity Reaction Status Date / Time No Known Allergies Allergy Verified 11/07/20 11:31 Home Medications Medication Instructions Recorded Confirmed Type aspirin 81 mg tablet,delayed 81 mg PO DAILY 05/21/19 11/07/20 History release cholecalciferol (vitamin D3) 10 10 mcg PO DAILY 05/21/19 11/07/20 History mcg (400 unit) capsule lutein 25 mg-zeaxanthin 5 mg 1 cap PO DAILY 03/01/20 11/07/20 History capsule omega-3 fatty acids 1,500 mg PO DAILY 06/02/20 11/07/20 History metoprolol succinate 25 mg 25 mg PO DAILY #90 tablet 08/09/20 11/16/20 Rx tablet,extended release 24 hr Synthroid 125 mcg tablet See Rx Instructions .ROUTE 08/22/20 11/16/20 Rx .COMPLEX #45 tablet NS melatonin 10 mg capsule 5 mg PO QHS 09/08/20 11/07/20 History escitalopram oxalate 20 mg tablet 20 mg PO DAILY #90 tablet 10/16/20 11/07/20 Rx Saccharomyces boulardii 250 mg 250 mg PO BID 10/24/20 11/07/20 History capsule Patient hx anesthesia problems: none Family hx anesthesia problems: none PMFSH Past Medical History Medical History Anemia in chronic illness C. difficile colitis Family history of malignant neoplasm of breast Fatigue Fibroids H/O cataract HTN (hypertension) Hypothyroidism Hypothyroidism (acquired) Insomnia due to anxiety and fear Leiomyoma of uterus, unspecified Overweight (BMI 25.0-29.9) Phobic anxiety disorder, unspecified Rectal polyp Surgical History Surgical History H/O hemorrhoidectomy History of knee surgery S/P cholecystectomy (~05/2019) Family History Family History Sibling Hypertension Father Cerebrovascular accident Patient's father is , Onset Age: 90 Mother Family history of malignant neoplasm of breast in first degree relative, Onset Age: 48 Family history of cardiovascular disease Social History Social History Alcohol intake: former Substance use: never Substance use type: does not use Living arrangements: with family Gender identity (if verbalized by the patient): Female Spiritual care concerns: No Agree to blood products: Yes Anes - Eval Final PreProcedure Day of Procedure 11/16/20 07:19 Patient weight: normal Heart: regular rate and rhythm Lungs: clear to auscultation Airway: Mallampati scale Neurological: alert and oriented Last oral intake: >/= 8 hours ASA classification: III Emergent: no Anesthetic plan: proceed Anesthesia type and monitoring: general GIVS and standard monitoring Informed Consent: The patient's anesthetic plan and its attendant risks and benefits were discussed with the patient/family/POA. Questions were solicited and answers provided to the satisfaction of the patient/family/POA.
[2020-11-16 07:50] VITALS: BP 110/65; PULSE 61; RESP 16; O2SAT 100
[2020-11-16 08:00] VITALS: BP 104/61; PULSE 62; RESP 20; O2SAT 97
[2020-11-16 08:10] VITALS: BP 135/69; PULSE 62; RESP 18; O2SAT 99
== END 2020-11-16 08:25 | disposition home or self-care (01) ==
PROVIDERS: PCP Family Medicine; Visit Provider Internal Medicine Gastroenterology
PROC: 0DJD8ZZ Inspection of Lower Intestinal Tract, Via Natural or Artificial Opening Endoscopic (ICD-10-PCS; CPT 45378; principal; 2020-11-16 07:30)
DX: K52.831 Collagenous colitis (principal); K52.832 Lymphocytic colitis; K57.30 Diverticulosis of large intestine without perforation or abscess without bleeding; D63.8 Anemia in other chronic diseases classified elsewhere; I10 Essential (primary) hypertension; E03.9 Hypothyroidism, unspecified; F40.9 Phobic anxiety disorder, unspecified; H26.9 Unspecified cataract; D25.9 Leiomyoma of uterus, unspecified; E66.3 Overweight; Z90.49 Acquired absence of other specified parts of digestive tract; Z80.3 Family history of malignant neoplasm of breast
CPT/HCPCS: 45380; 88305; J2001; J2704; J7120

== ENCOUNTER 2021-06-29 09:09 | Outpatient (CLI) | payer MEDICARE, SELFPAY ==
--- NOTE | ~2021-06-29 | MM_ITS ---
EXAMINATION: MM screening stefanie BI w kaylah HISTORY: Screening TECHNIQUE: Craniocaudal and mediolateral oblique 3-D tomosynthesis images were obtained and synthetic 2-D images were generated. CAD analysis was submitted and interpreted. COMPARISON: Comparison to multiple prior studies sequentially, with oldest reviewed study dated 02/21. BREAST PARENCHYMAL COMPOSITION: There are scattered areas of fibroglandular density. FINDINGS: No significant change to benign-appearing bilateral breast masses. There is no evidence of suspicious mass, calcification, or architectural distortion to suggest malignancy in either breast. T here has been no suspicious interval change. IMPRESSION: 1. No mammographic evidence of malignancy. 2. Recommend routine screening mammography in one year. BI-RADS Category 1: Negative Reviewed, dictated and finalized at location A.
== END 2021-06-29 09:10 | disposition home or self-care (01) ==
LOC: ANHIMG 09:10
PROVIDERS: PCP Family Medicine; Visit Provider Obstetrics & Gynecology
DX: Z12.31 Encounter for screening mammogram for malignant neoplasm of breast (principal)
CPT/HCPCS: 77063; 77067

== ENCOUNTER 2022-02-21 14:11 | Outpatient (CLI) | payer MEDICARE, SELFPAY ==
--- NOTE | ~2022-02-21 | DEXA_ITS ---
Bone Density Report Name: TURNER IVY Age: 76 Sex: Female Ethnicity: White Date of : 1945 Indication: postmenopausal; screening for osteoporosis; parental hip fracture; height loss; inflammatory bowel disease; Referring Provider: ACOSTA THOMAS Study: Bone densitometry was performed. Exam Date: February 21, 2022 Accession number: [id number] Bone Density: Region BMD T-score Z-score Classification AP Spine(L1, L4) 1.027 -0.1 2.4 Normal Femoral Neck (Left) 0.722 -1.1 1.0 Osteopenia Total Hip (Left) 0.936 -0.1 1.9 Normal Femoral Neck (Right) 0.706 -1.3 0.9 Osteopenia Total Hip (Right) 0.908 -0.3 1.6 Normal Total Hip Mean 0.922 -0.2 1.8 Normal World Health Organization criteria for BMD impression classify patients as: Normal (T-score at or above -1.0), Osteopenia (T-score between -1.0 and -2.5), or Osteoporosis (T-score at or below -2.5). 10-year Fracture Risk(1): Major Osteoporotic Fracture 19% Hip Fracture 9.2% Reported Risk Factors: [place] (), Neck BMD=0.706, BMI=31.2, parental fracture (1) FRAX(R) Version 3.08. Fracture probability calculated for an untreated patient. Fracture probability may be lower if the patient has received treatment. Previous Exams: Region Exam Age BMD T-score BMD Change BMD Change Date g/cm2 vs Baseline vs Previous AP Spine (L1,L4) 02/21/2022 76 1.027 -0.1 0.047 (4.8%)# 0.010 (1.0%) 09/28/2019 74 1.017 -0.2 0.037 (3.8%)# -0.022 (-2.1%) 09/25/2016 71 1.038 0.0 0.059 (6.0%)# 0.036 (3.6%)* 08/02/2014 68 1.002 -0.3 0.023 (2.4%)# 0.023 (2.4%)# 07/28/2012 66 0.979 -0.5 Total Hip(Left) 02/21/2022 76 0.936 -0.1 -0.083 (-8.1%) -0.018 (-1.9%) 09/28/2019 74 0.954 0.1 -0.064 (-6.3%) -0.041 (-4.2%) 09/25/2016 71 0.996 0.4 -0.023 (-2.3%) 0.009 (0.9%) 08/02/2014 68 0.987 0.4 -0.032 (-3.1%) -0.032 (-3.1%) 07/28/2012 66 1.019 0.6 Total Hip(Right) 02/21/2022 76 0.908 -0.3 -0.033 (-3.5%) 0.004 (0.5%) 09/28/2019 74 0.904 -0.3 -0.037 (-4.0%) -0.063 (-6.5%) 09/25/2016 71 0.967 0.2 0.026 (2.7%)# 0.028 (3.0%)* 08/02/2014 68 0.939 0.0 -0.003 (-0.3%) -0.003 (-0.3%) 07/28/2012 66 0.941 0.0 *Denotes significance at 95% confidence level, LSC for AP Spine = 0.022 g/cm2, LSC for Total Hip = 0.027 g/cm2 # Denotes dissimilar scan types or analysis methods Clinical Information Provided by Patient: Parent has had a hip fracture Has used the follo
== END 2022-02-21 14:12 | disposition home or self-care (01) ==
LOC: ANHIMG 14:13
PROVIDERS: PCP Family Medicine; Visit Provider Obstetrics & Gynecology
DX: Z78.0 Asymptomatic menopausal state (principal); M85.852 Other specified disorders of bone density and structure, left thigh; M85.851 Other specified disorders of bone density and structure, right thigh
CPT/HCPCS: 77080

== ENCOUNTER 2022-07-03 14:55 | Outpatient (CLI) | payer MEDICARE, SELFPAY ==
--- NOTE | ~2022-07-03 | MM_ITS ---
EXAMINATION: MM screening stefanie BI w kaylah HISTORY: Screening mammogram TECHNIQUE: Craniocaudal and mediolateral oblique 3-D tomosynthesis images were obtained and synthetic 2-D images were generated. CAD analysis was submitted and interpreted. COMPARISON: June 29, 2021, June 27, 2020, April 29, 2019 bilateral screening mammogram examinations BREAST PARENCHYMAL COMPOSITION: There are scattered areas of fibroglandular density. FINDINGS: Stable bilateral circumscribed opacities including skin lesion at the posterior lateral inf erior medial right breast, stable circumscribed approximately 4.5 mm opacity in the lower inner quadr ant of the left breast.. There is no evidence of suspicious mass, calcification, or architectural dis tortion to suggest malignancy in either breast. There has been no suspicious interval change. IMPRESSION: 1. No mammographic evidence of malignancy. 2. Recommend routine screening mammography in one year. BI-RADS Category 2: Benign finding(s). Reviewed, dictated and finalized at location A.
== END 2022-07-03 14:56 | disposition home or self-care (01) ==
LOC: ANHIMG 14:56
PROVIDERS: PCP Family Medicine; Visit Provider Obstetrics & Gynecology
DX: Z12.31 Encounter for screening mammogram for malignant neoplasm of breast (principal)
CPT/HCPCS: 77063; 77067

== ENCOUNTER 2023-07-07 09:37 | Outpatient (CLI) | payer MEDICARE, SELFPAY ==
--- NOTE | ~2023-07-07 | MM_ITS ---
EXAMINATION: MM screening stefanie BI w kaylah HISTORY: Screening TECHNIQUE: Craniocaudal and mediolateral oblique 3-D tomosynthesis images were obtained and synthetic 2-D images were generated. CAD analysis was submitted and interpreted. COMPARISON: Comparison to multiple prior studies sequentially, with oldest reviewed study dated 02/22. BREAST PARENCHYMAL COMPOSITION: Not dense: There are scattered areas of fibroglandular density. FINDINGS: Stable benign-appearing left breast mass... There is no evidence of suspicious mass, calcif ication, or architectural distortion to suggest malignancy in either breast. There has been no suspic ious interval change. IMPRESSION: 1. No mammographic evidence of malignancy. 2. Recommend routine screening mammography in one year. BI-RADS Category 2: Benign finding(s). Reviewed, dictated and finalized at location A.
== END 2023-07-07 09:38 | disposition home or self-care (01) ==
LOC: ANHIMG 09:39
PROVIDERS: PCP Family Medicine; Visit Provider Obstetrics & Gynecology
DX: Z12.31 Encounter for screening mammogram for malignant neoplasm of breast (principal)
CPT/HCPCS: 77063; 77067

== ENCOUNTER 2023-10-28 07:00 | Outpatient (NON) | payer MEDICARE, SELFPAY | END 2023-10-29 08:34 | disposition home or self-care (01) | PROVIDERS: PCP Family Medicine; Visit Provider Internal Medicine Gastroenterology | DX: R63.4 Abnormal weight loss (principal) | CPT/HCPCS: 88305; 88342 ==

== ENCOUNTER 2023-10-28 09:24 | Day surgery (SDC) | payer MEDICARE, SELFPAY ==
[2023-09-29 06:34] VITALS: BMI 29.7
[2023-10-13 10:07] VITALS: BMI 30.2
--- NOTE | 2023-10-27 15:29 | PM.HPGS ---
History of Present Illness History of Present Illness Consent: Risks, benefits, and alternatives have been discussed and questions answered. Patient agrees to proceed with procedure. Chief complaint: Anorexia, Abnormal Weight Loss, Other Fecal Narrative: Abby Cole is a 78 year old female with 20# unexplained weight loss and early satiety.She has chronic diarrhea and a diagnosis of microscopic colitis. Review of Systems Review of Systems: All systems reviewed & are unremarkable except as noted in HPI and below PMFSH Past Medical History Medical History Anemia in chronic illness C. difficile colitis Family history of malignant neoplasm of breast Fatigue Fibroids H/O cataract HTN (hypertension) Hypothyroidism Hypothyroidism (acquired) Insomnia due to anxiety and fear Leiomyoma of uterus, unspecified Overweight (BMI 25.0-29.9) Phobic anxiety disorder, unspecified Rectal polyp Surgical History Surgical History H/O hemorrhoidectomy History of knee surgery S/P cholecystectomy (~05/2019) Family History Family History Sibling Hypertension Father Cerebrovascular accident Patient's father is , Onset Age: 90 Mother Family history of malignant neoplasm of breast in first degree relative, Onset Age: 48 Family history of cardiovascular disease Social History Social History Smoking status: Never smoker Alcohol intake: current Alcohol use details: social Substance use: never Substance use type: does not use Lack of Transportation: No Lack of Food: Never True Current Housing: I Have Housing Concerned About Future Housing: No Difficulty Paying Gas/Electric Bills: No Difficulty Paying for Meds: No Currently Unemployed: No Education: Associate Degree Difficulty w/ Childcare or Family Care: No Living arrangements: with family Gender identity (if verbalized by the patient): Female Spiritual care concerns: No Agree to blood products: Yes Meds Home Medications and Allergies Home Medications Medication Instructions Recorded Confirmed Type aspirin 81 mg tablet,delayed 81 mg PO DAILY 05/21/19 10/28/23 History release cholecalciferol (vitamin D3) 10 10 mcg PO DAILY 05/21/19 10/28/23 History mcg (400 unit) capsule (Vitamin D3) lutein 25 mg-zeaxanthin 5 mg 1 cap PO DAILY 03/01/20 10/28/23 History capsule (Ocuvite Lutein) fluticasone furoate 200 1 inh inhalation .PRN #60 ea 10/29/22 10/28/23 Rx mcg-vilanterol 25 mcg/dose inhalation powder (Breo Ellipta) fluticasone propionate 50 2 spray intranasal .PRN 10/29/22 10/28/23 History mcg/actuation nasal spray,suspension (Flonase Allergy Relief) levothyroxine 75 mcg tablet 75 mcg PO DAILY #90 tabs 06/24/23 10/28/23 Rx (Synthroid) escitalopram oxalate 20 mg tablet 20 mg PO DAILY #90 tabs 06/30/23 10/28/23 Rx irbesartan 300 mg tablet 300 mg PO DAILY #100 tabs 07/10/23 10/28/23 Rx budesonide 3 mg 6 mg PO DAILY 10/13/23 10/28/23 History capsule,delayed,extended release omeprazole 40 mg capsule,delayed 40 mg PO BID #60 caps 10/28/23 Rx release Allergies Allergy/AdvReac Type Severity Reaction Status Date / Time lisinopril AdvReac Mild Cough Verified 10/28/23 09:48 Exam Const: General: alert Orientation/consciousness: patient oriented x3 Resp: Auscultation: clear to auscultation bilaterally Cardio: Rhythm: regular rhythm GI: GI Palp: Yes Soft to palpation and No Tenderness to palpation present (GI) Neuro: General: patient oriented x3 Assessment and Plan Assessment and plan (1) Weight loss: Code(s): R63.4 - Abnormal weight loss Status: Acute Assessment and Plan: EGD with possible biopsy or dilatation or cautery. (2) Nader
--- NOTE | 2023-10-28 06:46 | WPDANESEPPF ---
Anes - Initial Pre Proc Eval Procedure: Operation Date: 10/28/23 11:00 Proposed Procedures p Esophagogastroduodenoscopy - Wes Santos MD s Colonoscopy - Wes Santos MD Date/Time: 10/28/23 06:46 Surgeon: Wes Santos MD Pre Op Diagnosis: Anorexia, Abnormal Weight Loss, Other Fecal Patient Data Age: 78 Gender: F Height: 1.6 m Weight: 77.3 kg Allergies Allergy/AdvReac Type Severity Reaction Status Date / Time lisinopril AdvReac Mild Cough Verified 10/28/23 09:48 Home Medications Medication Instructions Recorded Confirmed Type aspirin 81 mg tablet,delayed 81 mg PO DAILY 05/21/19 10/28/23 History release cholecalciferol (vitamin D3) 10 10 mcg PO DAILY 05/21/19 10/28/23 History mcg (400 unit) capsule (Vitamin D3) lutein 25 mg-zeaxanthin 5 mg 1 cap PO DAILY 03/01/20 10/28/23 History capsule (Ocuvite Lutein) fluticasone furoate 200 1 inh inhalation .PRN #60 ea 10/29/22 10/28/23 Rx mcg-vilanterol 25 mcg/dose inhalation powder (Breo Ellipta) fluticasone propionate 50 2 spray intranasal .PRN 10/29/22 10/28/23 History mcg/actuation nasal spray,suspension (Flonase Allergy Relief) levothyroxine 75 mcg tablet 75 mcg PO DAILY #90 tabs 06/24/23 10/28/23 Rx (Synthroid) escitalopram oxalate 20 mg tablet 20 mg PO DAILY #90 tabs 06/30/23 10/28/23 Rx irbesartan 300 mg tablet 300 mg PO DAILY #100 tabs 07/10/23 10/28/23 Rx budesonide 3 mg 6 mg PO DAILY 10/13/23 10/28/23 History capsule,delayed,extended release Patient hx anesthesia problems: none Family hx anesthesia problems: none Results Review: All pre-operative results and documents have been reviewed as part of the pre-operative evaluation. [facility] Past Medical History Medical History Anemia in chronic illness C. difficile colitis Family history of malignant neoplasm of breast Fatigue Fibroids H/O cataract HTN (hypertension) Hypothyroidism Hypothyroidism (acquired) Insomnia due to anxiety and fear Leiomyoma of uterus, unspecified Overweight (BMI 25.0-29.9) Phobic anxiety disorder, unspecified Rectal polyp Surgical History Surgical History H/O hemorrhoidectomy History of knee surgery S/P cholecystectomy (~05/2019) Family History Family History Sibling Hypertension Father Cerebrovascular accident Patient's father is , Onset Age: 90 Mother Family history of malignant neoplasm of breast in first degree relative, Onset Age: 48 Family history of cardiovascular disease Social History Social History Smoking status: Never smoker Alcohol intake: current Alcohol use details: social Substance use: never Substance use type: does not use Lack of Transportation: No Lack of Food: Never True Current Housing: I Have Housing Concerned About Future Housing: No Difficulty Paying Gas/Electric Bills: No Difficulty Paying for Meds: No Currently Unemployed: No Education: Associate Degree Difficulty w/ Childcare or Family Care: No Living arrangements: with family Gender identity (if verbalized by the patient): Female Spiritual care concerns: No Agree to blood products: Yes Anes - Eval Final PreProcedure Day of Procedure 10/28/23 06:46 Patient weight: overweight Heart: regular rate and rhythm Lungs: clear to auscultation Airway: Mallampati scale class II Neurological: alert and oriented Last oral intake: >/= 8 hours ASA classification: II Emergent: no Anesthetic plan: proceed Anesthesia type and monitoring: general GIVS and standard monitoring Results Review: All pre-operative results and documents have been reviewed as part of the pre-operative evaluation. Informed Consent: The patient's anesthetic plan and its attenda
[2023-10-28 09:49] VITALS: BP 122/67; PULSE 92; RESP 16; TEMP 36.3; O2SAT 99
[2023-10-28] MEDS: LACTATED RINGERS 1,000 ML 150 ML IV CONT (09:53)
[2023-10-28 10:48] VITALS: BP 99/58; PULSE 72; RESP 15; O2SAT 98
[2023-10-28 10:55] VITALS: BP 92/48; PULSE 79; RESP 15; O2SAT 98
--- NOTE | 2023-10-28 11:12 | WPDANESPN ---
Anes - Prog Note Post-Op Date/Time: 10/28/23 11:12 Cardiovascular status: normal Respiratory status: normal Airway patency: baseline Mental status: baseline Post-Op hydration status: normal Vital Signs: Last Vital Signs Temp 36.3 C L 10/28/23 09:49 Pulse 79 10/28/23 10:55 Resp 15 10/28/23 10:55 BP 92/48 L 10/28/23 10:55 Pulse Ox 98 10/28/23 10:55 O2 Del Method Room Air 10/28/23 10:55 Pain Score (VAS): 0 I/O: Intake & Output 10/27/23 10/28/23 10/28/23 23:59 07:59 15:59 Intake Total 400 Balance 400 Post-procedural complaints: none Patient Feedback: Patient satisfied with anesthetic care. Other Findings: Patient vital signs back to baseline. Patient denies nausea and vomiting. Patient's pain under control. Patient OK for discharge.
== END 2023-10-28 11:25 | disposition home or self-care (01) ==
PROVIDERS: PCP Family Medicine; Visit Provider Internal Medicine Gastroenterology
PROC: 0DJ08ZZ Inspection of Upper Intestinal Tract, Via Natural or Artificial Opening Endoscopic (ICD-10-PCS; CPT 43235; principal; 2023-10-28 11:00)
PROC: 0DJD8ZZ Inspection of Lower Intestinal Tract, Via Natural or Artificial Opening Endoscopic (ICD-10-PCS; CPT 45378; 2023-10-28 11:00)
DX: R63.4 Abnormal weight loss (principal); Z86.010 Personal history of colon polyps; Z12.11 Encounter for screening for malignant neoplasm of colon; D12.8 Benign neoplasm of rectum; K57.30 Diverticulosis of large intestine without perforation or abscess without bleeding; K21.9 Gastro-esophageal reflux disease without esophagitis; K25.9 Gastric ulcer, unspecified as acute or chronic, without hemorrhage or perforation
CPT/HCPCS: 45380; 43239

== ENCOUNTER 2023-12-05 10:07 | Outpatient (CLI) | payer MEDICARE, SELFPAY ==
[2023-12-05 16:28] LABS: Thyroid Stimulating Hormone 0.348 uIU/mL (0.465-4.680)
== END 2023-12-05 10:08 | disposition home or self-care (01) ==
PROVIDERS: PCP Family Medicine; Visit Provider Family Medicine
DX: E03.9 Hypothyroidism, unspecified (principal)
CPT/HCPCS: 36415; 84443

== ENCOUNTER 2023-12-29 01:20 | Day surgery (SDC) | payer MEDICARE, SELFPAY ==
[2023-12-29 12:14] VITALS: BP 140/66; PULSE 88; RESP 20; TEMP 36.2; O2SAT 98; BMI 29.5
[2023-12-29] MEDS: LACTATED RINGERS 1,000 ML 150 ML IV CONT (12:23)
--- NOTE | 2023-12-29 12:24 | WPDANESEPPF ---
Anes - Initial Pre Proc Eval Procedure: Operation Date: 12/29/23 13:30 Proposed Procedures p Esophagogastroduodenoscopy - Akshat Sainz MD Date/Time: 12/29/23 12:24 Surgeon: Akshat Sainz MD Pre Op Diagnosis: Gastric ulcer Patient Data Age: 78 Gender: F Height: 1.6 m Weight: 75.6 kg Last Vital Signs Temp 36.2 C L 12/29/23 12:14 Pulse 88 12/29/23 12:14 Resp 20 12/29/23 12:14 BP 140/66 12/29/23 12:14 Pulse Ox 98 12/29/23 12:14 O2 Del Method Room Air 12/29/23 12:14 Allergies Allergy/AdvReac Type Severity Reaction Status Date / Time lisinopril AdvReac Mild Cough Verified 12/29/23 12:13 Home Medications Medication Instructions Recorded Confirmed Type cholecalciferol (vitamin D3) 10 10 mcg PO DAILY 05/21/19 12/29/23 History mcg (400 unit) capsule (Vitamin D3) lutein 25 mg-zeaxanthin 5 mg 1 cap PO DAILY 03/01/20 12/29/23 History capsule (Ocuvite Lutein) fluticasone propionate 50 2 spray intranasal .PRN PRN Nasal 10/29/22 12/29/23 History mcg/actuation nasal Congestion spray,suspension (Flonase Allergy Relief) irbesartan 300 mg tablet 300 mg PO DAILY #100 tabs 07/10/23 12/29/23 Rx budesonide 3 mg 6 mg PO DAILY 10/13/23 12/29/23 History capsule,delayed,extended release omeprazole 40 mg capsule,delayed 40 mg PO BID #60 caps 10/28/23 12/29/23 Rx release fluticasone furoate 200 1 inh inhalation .PRN PRN Cough 12/12/23 12/29/23 History mcg-vilanterol 25 mcg/dose inhalation powder (Breo Ellipta) levothyroxine 75 mcg tablet 75 mcg PO DAILY #90 tabs 12/18/23 12/29/23 Rx (Synthroid) escitalopram oxalate 20 mg tablet 20 mg PO DAILY #90 tabs 12/25/23 12/29/23 Rx (Lexapro) Patient hx anesthesia problems: none Family hx anesthesia problems: none Results Review: All pre-operative results and documents have been reviewed as part of the pre-operative evaluation. [facility] Past Medical History Medical History Anemia in chronic illness C. difficile colitis Family history of malignant neoplasm of breast Fatigue Fibroids H/O cataract HTN (hypertension) Hypothyroidism Hypothyroidism (acquired) Insomnia due to anxiety and fear Leiomyoma of uterus, unspecified Overweight (BMI 25.0-29.9) Phobic anxiety disorder, unspecified Rectal polyp Surgical History Surgical History H/O hemorrhoidectomy History of knee surgery S/P cholecystectomy (~05/2019) Family History Family History Sibling Hypertension Father Cerebrovascular accident Patient's father is , Onset Age: 90 Mother Family history of malignant neoplasm of breast in first degree relative, Onset Age: 48 Family history of cardiovascular disease Social History Social History Smoking status: Never smoker Alcohol intake: former Drinks per week: 1 Alcohol use details: social Substance use: never Substance use type: does not use Lack of Transportation: No Lack of Food: Never True Current Housing: I Have Housing Concerned About Future Housing: No Difficulty Paying Gas/Electric Bills: No Difficulty Paying for Meds: No Currently Unemployed: No Education: Associate Degree Difficulty w/ Childcare or Family Care: No Living arrangements: with family Gender identity (if verbalized by the patient): Female Spiritual care concerns: No Agree to blood products: Yes Anes - Eval Final PreProcedure Day of Procedure 12/29/23 12:24 Patient weight: overweight Heart: regular rate and rhythm Lungs: clear to auscultation Airway: Mallampati scale class II Neurological: alert and oriented Last oral intake: >/= 8 hours ASA classification: III Emergent: no Anesthetic plan: proceed Anesthesia type and monitorin
--- NOTE | 2023-12-29 13:07 | PM.HPGS ---
History of Present Illness History of Present Illness Consent: Risks, benefits, and alternatives have been discussed and questions answered. Patient agrees to proceed with procedure. Chief complaint: Gastric ulcer Narrative: Abby Cole is a 78 year old female with gastric ulcers 10/2023, now on ppi. Here to assess healing. Review of Systems Review of Systems: All systems reviewed & are unremarkable except as noted in HPI and below PMFSH Past Medical History Medical History Anemia in chronic illness C. difficile colitis Family history of malignant neoplasm of breast Fatigue Fibroids H/O cataract HTN (hypertension) Hypothyroidism Hypothyroidism (acquired) Insomnia due to anxiety and fear Leiomyoma of uterus, unspecified Overweight (BMI 25.0-29.9) Phobic anxiety disorder, unspecified Rectal polyp Surgical History Surgical History H/O hemorrhoidectomy History of knee surgery S/P cholecystectomy (~05/2019) Family History Family History Sibling Hypertension Father Cerebrovascular accident Patient's father is , Onset Age: 90 Mother Family history of malignant neoplasm of breast in first degree relative, Onset Age: 48 Family history of cardiovascular disease Social History Social History Smoking status: Never smoker Alcohol intake: former Drinks per week: 1 Alcohol use details: social Substance use: never Substance use type: does not use Lack of Transportation: No Lack of Food: Never True Current Housing: I Have Housing Concerned About Future Housing: No Difficulty Paying Gas/Electric Bills: No Difficulty Paying for Meds: No Currently Unemployed: No Education: Associate Degree Difficulty w/ Childcare or Family Care: No Living arrangements: with family Gender identity (if verbalized by the patient): Female Spiritual care concerns: No Agree to blood products: Yes Meds Home Medications and Allergies Home Medications Medication Instructions Recorded Confirmed Type cholecalciferol (vitamin D3) 10 10 mcg PO DAILY 05/21/19 12/29/23 History mcg (400 unit) capsule (Vitamin D3) lutein 25 mg-zeaxanthin 5 mg 1 cap PO DAILY 03/01/20 12/29/23 History capsule (Ocuvite Lutein) fluticasone propionate 50 2 spray intranasal .PRN PRN Nasal 10/29/22 12/29/23 History mcg/actuation nasal Congestion spray,suspension (Flonase Allergy Relief) irbesartan 300 mg tablet 300 mg PO DAILY #100 tabs 07/10/23 12/29/23 Rx budesonide 3 mg 6 mg PO DAILY 10/13/23 12/29/23 History capsule,delayed,extended release omeprazole 40 mg capsule,delayed 40 mg PO BID #60 caps 10/28/23 12/29/23 Rx release fluticasone furoate 200 1 inh inhalation .PRN PRN Cough 12/12/23 12/29/23 History mcg-vilanterol 25 mcg/dose inhalation powder (Breo Ellipta) levothyroxine 75 mcg tablet 75 mcg PO DAILY #90 tabs 12/18/23 12/29/23 Rx (Synthroid) escitalopram oxalate 20 mg tablet 20 mg PO DAILY #90 tabs 12/25/23 12/29/23 Rx (Lexapro) Allergies Allergy/AdvReac Type Severity Reaction Status Date / Time lisinopril AdvReac Mild Cough Verified 12/29/23 12:13 Vital Signs Vital Signs - 24 hr 12/29/23 12:14 Temperature 97.2 F L Pulse Rate 88 Respiratory Rate 20 Blood Pressure 140/66 Pulse Oximetry 98 Oxygen Delivery Room Air Exam Const: General: comfortable and no acute distress HENMT: Face/Nose/Sinus: Normal nares present Eyes: General: appearance normal, both eyes and all related structures Neck: Neck: no JVD Resp: Auscultation: clear to auscultation bilaterally Cardio: Rate: regular rate Rhythm: regular rhythm GI: Inspection: non-distended GI Palp: Yes Soft to palpation Skin: General skin exam: normal color N
[2023-12-29 13:24] VITALS: BP 123/61; PULSE 78; RESP 23; O2SAT 96
[2023-12-29 13:34] VITALS: BP 125/62; PULSE 68; RESP 18; O2SAT 100
[2023-12-29 13:44] VITALS: BP 129/71; PULSE 66; RESP 18; O2SAT 99
== END 2023-12-29 13:56 | disposition home or self-care (01) ==
PROVIDERS: PCP Family Medicine; Referring Provider Internal Medicine Gastroenterology; Visit Provider Internal Medicine Gastroenterology
PROC: 0DJ08ZZ Inspection of Upper Intestinal Tract, Via Natural or Artificial Opening Endoscopic (ICD-10-PCS; CPT 43235; principal; 2023-12-29 13:30)
DX: K25.9 Gastric ulcer, unspecified as acute or chronic, without hemorrhage or perforation (principal); L90.5 Scar conditions and fibrosis of skin; I10 Essential (primary) hypertension; D63.8 Anemia in other chronic diseases classified elsewhere; E03.9 Hypothyroidism, unspecified; G47.09 Other insomnia; F40.8 Other phobic anxiety disorders; Z79.51 Long term (current) use of inhaled steroids; Z98.890 Other specified postprocedural states; Z90.49 Acquired absence of other specified parts of digestive tract; Z86.0100 Personal history of colon polyps, unspecified; Z80.3 Family history of malignant neoplasm of breast; Z82.49 Family history of ischemic heart disease and other diseases of the circulatory system
CPT/HCPCS: 43235; J2003; J2704; J7120

== ENCOUNTER 2024-05-27 20:35 | Inpatient (IN) | payer MEDICARE, SELFPAY ==
--- NOTE | ~2024-05-27 | CT_ITS ---
CT abdomen pelvis w con Ordering provider: Adrien Ling MD History: 78 years Female with . Diarrhea . Comparison: December 02, 2017 Technique: CT abdomen and pelvis with IV and without oral contrast. Automated exposure control and it erative reconstruction technique were employed. The dose-length product was 1030.39 mGy-cm. 100 mL Om nipaque 350 was given IV. Findings: VISUALIZED LOWER CHEST: Dependent atelectatic changes. UPPER ABDOMINAL ORGANS: Liver: Small hypodensity in the left lobe measuring 9 mm most likely a cyst. Prominent intrahepatic b ile ducts. Slightly prominent CBD. Gallbladder: Status post cholecystectomy. Spleen: Normal. Stomach/duodenum: Normal. Pancreas: Normal. Adrenals: Normal. Kidneys: Enhancement in the wall of the left renal pelvis and ureter which is suggestive of infection . Perinephric fat stranding is also noted. Multiple small cysts in the right kidney with the largest measures 1.8 cm. PELVIC ORGANS: The bladder is normal. Retroverted uterus. Calcification also seen in the left side o f the uterus. BOWEL AND MESENTERY: Colon: No evidence of diverticulitis. Fluid content is seen in the right side of the colon suggestive of diarrhea. Enteritis is possible. The appendix is not demonstrated. Small Bowel: Normal. No obstruction. Peritoneum/mesentery: No free air or free fluid. No mesenteric lymphadenopathy. RETROPERITONEUM: Mild atheromatous disease of the abdominal aorta. No retroperitoneal lymphadenopat hy. MUSCULOSKELETAL: Superficial soft tissues: The superficial soft tissues are normal. Bones: Age appropriate degenerative changes of the spine. Bilateral sacroiliitis. IMPRESSION: 1. Enhancement in the wall of the left renal pelvis and ureter suggestive of infection. 2. Fluid content in the right side of the colon suggestive of diarrhea. Enteritis is possible. 3. Slightly dilated intrahepatic bile ducts. Reviewed, dictated and finalized at location A. RAL OFFICE ASSOCIATE IMPRESSION: 1. Enhancement in the wall of the left renal pelvis and ureter suggestive of i nfection. 2. Fluid content in the right side of the colon suggestive of diarrhea. Enteri tis is possible. 3. Slightly dilated intrahepatic bile ducts.
--- NOTE | ~2024-05-27 | XR_ITS ---
XR chest 2V Ordering provider: Adrien Ling MD History: 78 years Female with . weakness . Comparison: None. FINDINGS: MEDIASTINUM: The cardiac silhouette is not enlarged. LUNGS: No infiltrates, effusions or pneumothorax. Emphysematous changes of the lungs. OTHER: No free air under the diaphragm. Degenerative changes of the spine. IMPRESSION: No acute cardiopulmonary pathology. Reviewed, dictated and finalized at location A. DEVELOPER WITH ANGULAR JS
--- OUTSIDE RECORDS SUMMARY | 2024-05-27 20:37 | XMS_ITS | Referral Summary ---
Author Organization [facility] Address [address] [place] [id number] Care Team Providers Care Dampproofer Name Role Phone Aly Westfall MD Primary Care Provider [phone] Aly Westfall MD Unavailable [phone] Encounters Date Type Department Care Team Description 05/06/2024 7:42 AM BUTTONHOLE FACER - 05/06/2024 11:59 PM BUTTONHOLE FACER Hospital Encounter [facility] [address] [place] [address] [place] [phone] Discharge Disposition: Discharge to home or self care 05/06/2024 7:42 AM BUTTONHOLE FACER - 05/06/2024 11:59 PM BUTTONHOLE FACER Hospital Encounter [facility] [address] [place] [address] [place] [phone] Discharge Disposition: Discharge to home or self care 05/06/2024 11:15 AM BUTTONHOLE FACER Office Visit [facility] [address] [place] [address] [address] [id number] Cassie Ross NP Right knee pain, unspecified chronicity (Primary Dx); Primary osteoarthritis of right knee from Last 3 Months Allergies No known active allergies Medications fidaxomicin (DIFICID) tabletIndications:C lostridioides difficile infection,C. difficile Take 1 tablet (200 mg total) by mouth as directed for 40 doses 40 tablet 9 Active Saccharomyces boulardii (FLORASTOR) 250 mg capsule Take by mouth Active aspirin-calcium carbonate 81 mg-300 mg calcium(777 mg) tablet Take 81 mg by mouth daily Active docusate sodium (COLACE) 100 mg capsule Take 1 capsule (100 mg total) by mouth 2 times daily as needed 9 Active escitalopram (LEXAPRO) 20 mg tablet 8 Active SYNTHROID 75 mcg tablet TK 1 T PO QD 3 9 Active ondansetron ODT (ZOFRAN-ODT) 4 mg disintegrating tablet Take 1 tablet (4 mg total) by mouth every 6 hours as needed 9 Active vancomycin (VANCOCIN) 125 mg capsule TK 1 C PO Q 6 H 7 9 Active Hospital, Clinic, or Other Facility Administered Medication Ordered Dose Route Frequency Start Date End Date Status lidocaine (XYLOCAINE) 20 mg/mL (2 %) injection 3 mLIndications:Admini stration of Local Anesthesia 3 mL One-Time Injection 05/06/2024 5 Ended methylPREDNISolone acetate (DEPO-medrol) injection 80 mgIndications:Primar y osteoarthritis of right knee 80 mg intra-artic One-Time Injection 05/06/2024 5 Ended Active Problems Problem Noted Date Diagnosed Date C. difficile colitis 09/01/2018 Overview (01/21/2019): Per [facility] order signed by Dr. Neel Figueroa on 08/28/18 [id number] [place] [address] [phone] S/P total knee arthroplasty, left 05/07/2018 Complex tear of medial menis cus of left knee as current injury 04/15/2018 Atopic rhinitis 08/07/2013 Overview (06/28/2016): ALLERGIC RHINITIS NOS Social History Tobacco Use Types Packs/Day Years Used Date Smoking Tobacco: Never Smokeless Tobacco: Never Alcohol Use Standard Drinks/Week Comments Yes 0 (1 standard drink = 0.6 oz pur e alcohol) AUDIT-C Answer Date Recorded Q1: How often do you have a drink containing alcohol? Never 05/06/2024 Q2: How many drinks containi ng alcohol do you have on a typical day when you are drinking? Patient does not drink Q3: How often do you have si x or more drinks on one occasion? Never 05/06/2024 Comments No Sex and Gender Information Value Date Recorded Sex Assigned at Not on file Legal Sex Female 11:58 PM BUTTONHOLE FACER Gender Identity Not on file Sexual Orientation Not on file Last Filed Vital Signs Vital Sign Reading Time Taken Comments Blood Pressure 124/70 05/06/2024 11:10 AM BUTTONHOLE FACER Pulse 75 05/06/2024 11:10 AM BUTTONHOLE FACER Temperature 37.4 C (99.3 F) 03/22/2019 12:44 PM BUTTONHOLE FACER Respiratory Rate 16 08/11/2018 4:46 PM CDT Oxygen Saturation 97% 08/11/2018 8:00 PM CDT Inhaled Oxygen Concentration - - Weight 75.5 kg (166 lb 8 oz) 05/06/2024 11:10 AM BUTTONHOLE FACER Height 157.5 cm (5' 2 ) 05/06/2024 11:10 AM BUTTONHOLE FACER Body Mass Index 30.45 05/06/2024 11:10 AM BUTTONHOLE FACER Plan of Treatment Not on file Procedures Procedure Name Priority Date/Time Associated Diagnosis Comments [place] ARTHROCENTESIS ASPIR&/INJ MAJOR JT/BURSA W/O US Routine 05/06/2024 11:15 AM BUTTONHOLE FACER Primary osteoarthritis of right knee XR KNEE RIGHT 4 OR MORE VIEWS Schedule Routine, Read Routine (OP Routine) 05/06/2024 11:01 AM BUTTONHOLE FACER Right knee pain, unspecified chronicity XR PELVIS 1 OR 2 VIEWS Schedule Routine, Read Routine (OP Routine) 05/06/2024 11:00 AM BUTTONHOLE FACER Right knee pain, unspecified chronicity from Last 3 Months Results * W[place] ARTHROCENTESIS ASPIR&/INJ MAJOR JT/BURSA W/O US (05/06/2024 11:15 AM BUTTONHOLE FACER) Narrative Cassie Ross NP - 05/06/2024 11:15 AM BUTTONHOLE FACER Cassie Ross NP 05/06/2024 11:29 AM Large Joint (Hip, Knee, Shoulder) Injection: R knee Performed by: Cassie Ross NP Authorized by: Cassie Ross NP Large Joint Injection/Aspiration: Consent Given by: Patient Site marked: the procedure site was marked Timeout: prior to procedure the correct patient, procedure, and site was verified Verbal consent obtained: Yes Supporting Documentation: Indications: Pain Procedure Details: Location: Knee Site: R knee Needle Size: 22 G Approach: Anterolateral Ultrasound guided: No Fluroscopic guidance: No Medications: 80 mg methylPREDNISolone acetate 80 mg/mL; 3 mL lidocaine 20 mg/mL (2 %) Patient tolerance: Patient tolerated the procedure well with no immediate complications Cassie Ross LINUX NETWORK SYSTEMS ADMINISTRATOR IN CLINIC/BEDSIDE ORDER TOBIAS Final Result * XR Knee Right 4 or More Views (05/06/2024 11:01 AM BUTTONHOLE FACER) Anatomical Region Laterality Modality Lower Extremities, Knee Right Digital Radiography Narrative 05/06/2024 11:16 AM BUTTONHOLE FACER Radiographs taken of the right knee today reveal moderate to severe degenerative changes with subchondral sclerosis, osteophyte formation, and diminished joint space. Cassie Ross LINUX NETWORK SYSTEMS ADMINISTRATOR IMG XR PROCEDURES Final Result * XR Pelvis 1 or 2 Views (05/06/2024 11:00 AM BUTTONHOLE FACER) Anatomical Region Laterality Modality Body, Pelvis N/A Digital Radiogra phy Narrative 05/06/2024 11:16 AM BUTTONHOLE FACER An AP pelvis taken today reveals evidence of mild degenerative changes of the bilateral hips. Cassie Ross LINUX NETWORK SYSTEMS ADMINISTRATOR IMG XR PROCEDURES Final Result from Last 3 Months Additional Health Concerns Infection Onset Date Last Indicated C. difficile Comment:SINCE 04/1006/15/2018 06/14/2018 Insurance [place] [address] MEDICARE COMMERCIAL GENERIC [place] [address] Care Teams Dampproofer Relationship Specialty Start Date End Date Aly Westfall MD PCP - General 06/15/18 Aly Westfall MD Family Medicine 06/15/18
--- OUTSIDE RECORDS SUMMARY | 2024-05-27 20:37 | XMS_ITS | Patient Health Summary ---
Author Organization [facility] Address [address] [place] [address] Care Team Providers Care Steel Plate Caulker Name Role Phone Aly Westfall MD Primary Care Provider [phone] Note from [facility],non-owned Affiliates and Associated Physician Practices is amultiple site organization consisting of ambulatory clinics and hospital sitesin [place], [place], [place] and [place]. This disclosure is being madepursuant to the Care Everywhere program and may not contain all information available regarding this patient. Last updated 17.[facility] Allergies No known active allergies Medications * Be aware that medications may not be up to date on this document. Alwaysverify current medications with the patient. * escitalopram (LEXAPRO) 20 MG tablet(Started 02/27/2018) * FLUAD 0.5 ML JAXSON injection(Started 01/07/2018) ADM 0.5ML IM UTD * SYNTHROID 50 MCG tablet(Started 02/27/2018) * vancomycin (VANCOCIN) 250 MG capsule(Started 03/25/2018) TK ONE C PO QID 1 refill left * aspirin (ASPIRIN) 81 MG tablet Take 81 mg by mouth once daily * Saccharomyces boulardii (FLORASTOR PO) * HYDROcodone-acetaminophen (NORCO) 5-325 MG tablet(Started 04/23/2018) Take 1 tablet by mouth every 4 hours as needed for Pain * docusate sodium (COLACE) 100 MG capsule(Started 04/23/2018) Take 1 capsule by mouth 2 times daily as needed for Constipation * ondansetron, disintegrating, (ZOFRAN ODT) 4 MG tablet(Started 04/23/2018) Take 1 tablet by mouth every 6 hours as needed for Nausea/Vomiting Allow tablet to dissolve on the tongue Active Problems Problem Noted Date Diagnosed Date C. difficile colitis 09/01/2018 S/P total knee arthroplasty, left 05/07/2018 Complex tear of medial menis cus of left knee as current injury 04/15/2018 Social History Tobacco Use Types Packs/Day Years Used Date Smoking Tobacco: Never Smokeless Tobacco: Never Alcohol Use Standard Drinks/Week Comments Yes 0 (1 standard drink = 0.6 oz pur e alcohol) socially Sex and Gender Information Value Date Recorded Sex Assigned at Not on file Gender Identity Not on file Sexual Orientation Not on file Last Filed Vital Signs Vital Sign Reading Time Taken Comments Blood Pressure 119/71 09/02/2018 11:00 AM CDT Pulse 64 09/02/2018 11:00 AM CDT Temperature 37.1 C (98.8 F) 09/02/2018 11:00 AM CDT Respiratory Rate 16 09/02/2018 11:00 AM CDT Oxygen Saturation 94% 04/23/2018 9:50 AM SENIOR PRODUCTION SUPERVISOR Inhaled Oxygen Concentration - - Weight 72.6 kg (160 lb) 04/23/2018 6:22 AM SENIOR PRODUCTION SUPERVISOR Height 162.6 cm (5' 4 ) 04/23/2018 6:22 AM SENIOR PRODUCTION SUPERVISOR Body Mass Index 27.46 04/23/2018 6:22 AM SENIOR PRODUCTION SUPERVISOR Procedures * LARYNGEAL MASK AIRWAY(Performed 04/23/2018) * ARTHROSCOPY KNEE MENISCAL REPAIR (MEDIAL/LATERAL)(Performed 04/23/2018) * MRI KNEE LEFT WO CONTRAST(Performed 04/13/2018) Performed for Chronic pain of left knee * XR KNEE LEFT 3VW(Performed 04/02/2018) Performed for Chronic pain of left knee Results * LARYNGEAL MASK AIRWAY (04/23/2018 9:47 AM SENIOR PRODUCTION SUPERVISOR) Narrative Beatris Villasenor, DO - 04/23/2018 9:47 AM SENIOR PRODUCTION SUPERVISOR Rita Felipe, GALLEY STRIPPER-KA[employer]KO [employer] MAORI 04/23/2018 7:29 AM LMA Placement Procedure/LDA Note: Patient Location: OR. Procedure: LMA. Pretreatment: 100% O2 Induction: standard IV Patient position: supine. Mask Ventilation: not attempted Type: gel LMA Size: 4 Placement verified by: bilateral breath sounds Staff Section Anesthesia Provider: BEATRIS VILLASENOR Provider #1: RITA FELIPE, Performed the procedure. 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 COMPLEX RADIAL TEAR INVOLVING THE INNER PORTION OF THE POSTERIOR HORN OF THE MEDIAL MENISCUS WITH CENTRAL DISPLACEMENT OF A SMALL MENISCAL FRAGMENT. ABNORMAL SIGNAL ALONG THE POSTERIOR MEDIAL MENISCOCAPSULAR JUNCTION CONCERNING FOR A MENISCOCAPSULAR SPRAIN. CONTUSION OF THE POSTERIOR HORN OF THE MEDIAL MENISCUS AND PERIPHERAL EXTRUSION OF THE MEDIAL MENISCAL BODY. MODERATE TO LARGE JOINT EFFUSION. Edited by Aubrie Mart on 04/13/2018 2:10 PM Reading Radiologist: Delores Hernandez MD on 04/13/2018 at 3:01 PM Narrative 04/13/2018 3:01 PM SENIOR PRODUCTION SUPERVISOR MRI LEFT KNEE WITHOUT CONTRAST CLINICAL INDICATION: Chronic left knee pain and limited range of motion. Popping sensation in the left knee resulting in acute instability. COMPARISON: Left knee x-ray series 04/02/2018. TECHNIQUE: Multiplanar multisequence MR imaging of the left knee was performed without contrast. FINDINGS: There is a broad region of chronic high-grade chondromalacia with subchondral microcystic change occurring along the apex and medial facet of the patella. The opposing trochlear cartilage is within normal limits. There is an 11 x 7 mm region of high-grade chondromalacia involving the central portion of the medial femoral condyle. There is a similar area of opposing high-grade chondromalacia within the medial tibial plateau. The articular cartilage of the lateral femorotibial compartment is within normal limits. There is a complex radial tear involving the inner portion of the posterior horn of the medial meniscus. The tear is occurring at the junction with the posterior root ligament. There is central displacement of a 5 x 2.5 mm meniscal fragment at this site. There is enlargement and diffuse intrinsic signal within the central and peripheral portions of the posterior horn of the medial meniscus consistent with a meniscal contusion. There is abnormal increased T2 signal occurring at the posterior medial meniscocapsular junction concerning for a meniscocapsular sprain. There is peripheral extrusion of the body of the medial meniscus causing mass effect on the tibial collateral ligament. The lateral meniscus is normal in signal and morphology. There are no displaced lateral meniscal fragments. The anterior cruciate ligament, posterior cruciate ligament, medial collateral ligamentous complex, lateral collateral ligamentous complex, and extensor mechanism are intact. There is a moderate to large joint effusion. Signal of the musculature is normal. Procedure Note Delores Hernandez MD - 04/13/2018 MRI LEFT KNEE WITHOUT CONTRAST CLINICAL INDICATION: Chronic left knee pain and limited range of motion. Popping sensation in the left knee resulting in acute instability. COMPARISON: Left knee x-ray series 04/02/2018. TECHNIQUE: Multiplanar multisequence MR imaging of the left knee was performed without contrast. FINDINGS: There is a broad region of chronic high-grade chondromalacia with subchondral microcystic change occurring along the apex and medial facet of the patella. The opposing trochlear cartilage is within normal limits. There is an 11 x 7 mm region of high-grade chondromalacia involving the central portion of the medial femoral condyle. There is a similar area of opposing high-grade chondromalacia within the medial tibial plateau. The articular cartilage of the lateral femorotibial compartment is within normal limits. There is a complex radial tear involving the inner portion of the posterior horn of the medial meniscus. The tear is occurring at the junction with the posterior root ligament. There is central displacement of a 5 x 2.5 mm meniscal fragment at this site. There is enlargement and diffuse intrinsic signal within the central and peripheral portions of the posterior horn of the medial meniscus consistent with a meniscal contusion. There is abnormal increased T2 signal occurring at the posterior medial meniscocapsular junction concerning for a meniscocapsular sprain. There is peripheral extrusion of the body of the medial meniscus causing mass effect on the tibial collateral ligament. The lateral meniscus is normal in signal and morphology. There are no displaced lateral meniscal fragments. The anterior cruciate ligament, posterior cruciate ligament, medial collateral ligamentous complex, lateral collateral ligamentous complex, and extensor mechanism are intact. There is a moderate to large joint effusion. Signal of the musculature is normal. IMPRESSION HIGH-GRADE CHONDROMALACIA INVOLVING THE APEX AND MEDIAL FACET OF THE PATELLA WELL THE CENTRAL PORTION OF THE MEDIAL FEMOROTIBIAL JOINT DESCRIBED. COMPLEX RADIAL TEAR INVOLVING THE INNER PORTION OF THE POSTERIOR HORN OF THE MEDIAL MENISCUS WITH CENTRAL DISPLACEMENT OF A SMALL MENISCAL FRAGMENT. ABNORMAL SIGNAL ALONG THE POSTERIOR MEDIAL MENISCOCAPSULAR JUNCTION CONCERNING FOR A MENISCOCAPSULAR SPRAIN. CONTUSION OF THE POSTERIOR HORN OF THE MEDIAL MENISCUS AND PERIPHERAL EXTRUSION OF THE MEDIAL MENISCAL BODY. MODERATE TO LARGE JOINT EFFUSION. Edited by Aubrie Mart on 04/13/2018 2:10 PM Reading Radiologist: Delores Hernandez MD on 04/13/2018 at 3:01 PM Ta Rose PA-C MR ORDERABLES * XR KNEE LEFT 3VW (04/02/2018 4:23 PM SENIOR PRODUCTION SUPERVISOR) Anatomical Region Laterality Modality Lower Extremity Computed Radiogr aphy Narrative 04/13/2018 1:53 PM SENIOR PRODUCTION SUPERVISOR Tabitha Nuñez, RT(R) 04/13/2018 1:53 PM See Chart For Xray Report Estrellita Bean PA-C DIAGNOSTIC IM AGING ORDERABLES Care Teams Steel Plate Caulker Relationship Specialty Start Date End Date Aly Westfall MD [facility] [place] [address] PCP - General 09/02/18
--- OUTSIDE RECORDS SUMMARY | 2024-05-27 20:37 | XMS_ITS | Clinical Summary ---
Author Organization [facility] [employer] Address [address] [place] [address] Care Team Providers Care Vegetable Packer Name Role Phone Aly Westfall MD Primary Care Provider [phone]- [phone] Source Comments [facility] [employer],non-owned Affiliates and Associated Physician Practices is amultiple site organization consisting of ambulatory clinics and hospital sitesin [place], [place], [place] and [place]. This disclosure is being madepursuant to the Care Everywhere program and may not contain all information available regarding this patient. Last updated 17.[facility] [employer] Allergies No known active allergies Medications * Be aware that medications may not be up to date on this document. Alwaysverify current medications with the patient. Medication Sig Dispensed Refills Start Date End Date Status escitalopram (LEXAPRO) 20 MG tablet 02/27/2018 Active FLUAD 0.5 ML JAXSON injection ADM 0.5ML IM UTD 0 01/07/2018 Active SYNTHROID 50 MCG tablet 02/27/2018 Active vancomycin (VANCOCIN) 250 MG capsule TK ONE C PO QID 1 03/25/2018 Active aspirin (ASPIRIN) 81 MG tablet Take 81 mg by mouth once daily Active Saccharomyces boulardii (FLORASTOR PO) Active HYDROcodone-acetam inophen (NORCO) 5-325 MG tablet Take 1 tablet by mouth every 4 hours as needed for Pain 40 tablet 04/23/2018 Active docusate sodium (COLACE) 100 MG capsule Take 1 capsule by mouth 2 times daily as needed for Constipation 60 capsule 04/23/2018 Active ondansetron, disintegrating, (ZOFRAN ODT) 4 MG tablet Take 1 tablet by mouth every 6 hours as needed for Nausea/Vomiting Allow tablet to dissolve on the tongue 10 tablet 04/23/2018 Active Active Problems Problem Noted Date Diagnosed Date C. difficile colitis 09/01/2018 Overview (09/01/2018): Per Gage order signed by Dr. Neel Figueroa on 08/28/18 [id number] [place] [address] [phone] S/P total knee arthroplasty, left 05/07/2018 [...] CDT Oxygen Saturation 94% 04/23/2018 9:50 AM WASTEWATER TREATMENT PLANT SUPERVISOR Inhaled Oxygen Concentration - - Weight 72.6 kg (160 lb) 04/23/2018 6:22 AM WASTEWATER TREATMENT PLANT SUPERVISOR Height 162.6 cm (5' 4 ) 04/23/2018 6:22 AM WASTEWATER TREATMENT PLANT SUPERVISOR Body Mass Index 27.46 04/23/2018 6:22 AM WASTEWATER TREATMENT PLANT SUPERVISOR Plan of Treatment Health Maintenance Due Date Last Done Comments BONE DENSITY TESTING 1945 MEDICARE AWV 12 MONTHS 1945 DTAP/TDAP/TD VACCINES (1 - Tdap) 09/13/1963 PNEUMOCOCCAL VACCINE 50+ (1 of 1 - PCV) 1994 ZOSTER VACCINE (1 of 2) 1994 Respiratory Syncytial Virus (RSV) Vaccine Pt: or over 60 yrs (1 - 1-dose 75+ series) 09/13/2019 COVID-19 VACCINE ( - 2023-2 5 season) 2023 INFLUENZA VACCINE (#1) 2023 DEPRESSION SCREENING 03/24/2024 HEPATITIS B VACCINE Aged Out No longe r eligible based on patient's age to complete this topic HIB VACCINE Aged Out No longer eligi ble based on patient's age to complete this topic HPV VACCINE Aged Out No longer eligi ble based on patient's age to complete this topic MENINGOCOCCAL (Group B) VACCINE Aged Out No longer eligible based on patient's age to complete this topic MENINGOCOCCAL VACCINE Aged Out No roscoe vinita eligible based on patient's age to complete this topic Care Teams Vegetable Packer Relationship Specialty Start Date End Date Aly Westfall MD [address] [place] [phone] PCP - General 09/02/18
--- OUTSIDE RECORDS SUMMARY | 2024-05-27 20:37 | XMS_ITS | Clinical Summary ---
Author Organization [facility] Address [address] [place] [address] Care Team Providers Care Echocardiograph Tech Name Role Phone Aly Westfall MD Primary Care Provider [phone] Aly Westfall MD Unavailable [phone] Allergies No known active allergies Medications fidaxomicin [...] signed by Dr. Neel Figueroa on 08/28/[address] [place] [address] [phone] S/P total knee arthroplasty, left 05/07/2018 Complex tear of medial menis cus of left knee as current injury 04/15/2018 Atopic rhinitis 08/07/2013 Overview (06/28/2016): ALLERGIC RHINITIS NOS Encounters Date Type Department Care Team Description 05/06/2024 11:15 AM REHAB NURSE Office Visit [facility] Orthopedics and Sports Medicine [address] [place] [address] [address] [address] Cassie Ross NP Right knee pain, unspecified chronicity (Primary Dx); Primary osteoarthritis of right knee 05/06/2024 7:42 AM REHAB NURSE - 05/06/2024 11:59 PM REHAB NURSE Hospital Encounter [facility] [address] [place] [address] [address] [address] Discharge Disposition: Discharge to home or self care 05/06/2024 7:42 AM REHAB NURSE - 05/06/2024 11:59 PM REHAB NURSE Hospital Encounter [facility] [address] [place] [address] [address] [address] Discharge Disposition: Discharge to home or self care from Last 3 Months Surgical History Surgery Date Site/Laterality Comments KNEE SURGERY 2006 Knee surgery OTHER SURGICAL HISTORY 2006 hemmorhoid surgery Medical History Medical History Date Comments 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 Hx Other Medical 02-ORTHO Family History Medical History Relation Name Comments Dementia Father Dementia; Heart disease Father Heart disease; Stroke Father Stroke; Breast cancer Mother Cancer -breast ; Other Mother thyroid; Relation Name Status Comments Father Alive Mother Social History Tobacco Use Types Packs/Day Years [...] on file Legal Sex Female 11:58 PM REHAB NURSE Gender Identity Not on file Sexual Orientation Not on file Obstetrics History Last Filed Vital Signs Vital Sign Reading Time Taken Comments Blood Pressure 124/70 05/06/2024 11:10 AM REHAB NURSE Pulse 75 05/06/2024 11:10 AM REHAB NURSE Temperature 37.4 C (99.3 F) 03/22/2019 12:44 PM REHAB NURSE Respiratory Rate 16 08/11/2018 4:46 PM CDT Oxygen Saturation 97% 08/11/2018 8:00 PM CDT Inhaled Oxygen Concentration - - Weight 75.5 kg (166 lb 8 oz) 05/06/2024 11:10 AM REHAB NURSE Height 157.5 cm (5' 2 ) 05/06/2024 11:10 AM REHAB NURSE Body Mass Index 30.45 05/06/2024 11:10 AM REHAB NURSE Plan of Treatment Health Maintenance Due Date Last Done Comments Depression Screening 1945 Fall Risk Assessment 1945 Hepatitis C Screening 1945 Osteoporosis Screening-Bone Density Scan 1944 DTaP/Tdap/Td Vaccine (1 - Tdap) 09/13/1955 Hepatitis B Screening 1962 Pneumococcal vaccine 65+ (1 of 1 - PCV) 1994 Zoster Vaccine (1 of 2) 1994 Well Visit 65+ 2009 Influenza Vaccine (#1) 2023 9, 01/06/2018, 01/04/2016, Additional history exists Procedures Procedure Name Priority Date/Time Associated Diagnosis Comments MS ARTHROCENTESIS ASPIR&/INJ MAJOR JT/BURSA W/O US Routine 05/06/2024 11:15 AM REHAB NURSE Primary osteoarthritis of right knee XR KNEE RIGHT 4 OR MORE VIEWS Schedule Routine, Read Routine (OP Routine) 05/06/2024 11:01 AM REHAB NURSE Right knee pain, unspecified chronicity XR PELVIS 1 OR 2 VIEWS Schedule Routine, Read Routine (OP Routine) 05/06/2024 11:00 AM REHAB NURSE Right knee pain, unspecified chronicity from Last 3 Months Results * MS ARTHROCENTESIS ASPIR&/INJ MAJOR JT/BURSA W/O US (05/06/2024 11:15 AM REHAB NURSE) Narrative Cassie Ross NP - 05/06/2024 11:15 AM REHAB NURSE Cassie Ross NP 05/06/2024 11:29 AM Large [...] well with no immediate complications Cassie Ross TOUR DIRECTOR IN CLINIC/BEDSIDE ORDER TOBIAS Final Result * XR Knee Right 4 or More Views (05/06/2024 11:01 AM REHAB NURSE) Anatomical Region Laterality Modality Lower Extremities, Knee Right Digital Radiography Narrative 05/06/2024 11:16 AM REHAB NURSE Radiographs taken of the right knee today reveal moderate to severe degenerative changes with subchondral sclerosis, osteophyte formation, and diminished joint space. Cassie Ross TOUR DIRECTOR IMG XR PROCEDURES Final Result * XR Pelvis 1 or 2 Views (05/06/2024 11:00 AM REHAB NURSE) Anatomical Region Laterality Modality Body, Pelvis N/A Digital Radiogra phy Narrative 05/06/2024 11:16 AM REHAB NURSE An AP pelvis taken today reveals evidence of mild degenerative changes of the bilateral hips. Cassie Ross TOUR DIRECTOR IMG XR PROCEDURES Final Result from Last 3 Months Additional Health Concerns Infection Onset Date Last Indicated C. difficile Comment:SINCE 04/1006/15/2018 06/14/2018 [place] [address] COMMERCIAL GENERIC [place] [address] MEDICARE COMMERCIAL GENERIC Care Teams Echocardiograph Tech Relationship Specialty Start Date End Date Aly Westfall MD PCP - General 06/15/18 Aly Westfall MD Family Medicine 06/15/18
--- OUTSIDE RECORDS SUMMARY | 2024-05-27 20:37 | XMS_ITS | Continuity of Care Document ---
Author Organization [facility] Address [address] [place] [address] Phone Care Team Providers Care Wooden Tank Erector Name Role Phone Tommy JROGENSEN, Jean-Claude Unavailable Unavailable Procedures Procedure Date Eye Exam & Treatment Eye Exam & Treatment Vision Svcs Frames Purchases Progressive Lens, Polycarb Anti-reflective Coating Miscellaneous Vision Service - Supplies Tax - Medical Eye Exam & Treatment Refraction Office/outpatient Visit, Est Advance Directives Directive Yes / No Effective Date File Name No Information Encounters Encounter Description Practice Location Reason(s) For Visit Diagnoses Date Provider Providers Copied on Encounter [facility], [address], [place], [place], [id number], [place] tel:[phone] [place] Professional No Information 8 Tommy Bermeo. [address] [place], [id number], [place]. tel:[phone] Referring Provider: Jean-Claude Wall, [address] [facility] [facility], [place], [address]. tel:[phone] [facility], [address], [place], [place], [id number], [phone] [place] Professional No Information Sep-0 7-201 0 Sergeydeion Bermeo. [address], [facility] A, [place], [place], [address], [place]. tel:[phone] [facility] Eye [facility], [address], [place], [place], [address], [place] tel:[phone] [facility] No Information 1-200 9 [facility] . [address], [address], [place], [place], [address], [place]. tel:[phone] Referring Provider: Jean-Claude Wall, [address] [facility], [place], [address]. tel:[phone] g Provider: Shakira Urbano, [address], [place], [address]. tel:[phone] [facility], [address], [place], [place], [address], [place] tel:[phone] [facility] [place] Professional No Information 4200 [address] Liorfarshad Agald. [address] [facility] [place], [address], [place]. tel:[phone] Office/outpa tient Visit, [facility], [address], [place], [place], [address], [place] tel:[phone] [facility] [place] Professional No Information 0 5-200 8 Liorfarshad Bermeo. [address] [facility], [facility] [place], [address], [place]. tel:[phone] Family History Family Member Type Diagnosis Age At Onset No Information Payers Payer name Insurance type Covered democrat ID Authoriza tiroscoe(s) [place] [id number] Social History Type Description Quantity Date Captured Comments Sex Female Smoking Status No Information Chief Complaint And Reason For Visit No Information Reason For Referral Reason For Referral No Information History Of Present Illness Encounter Date Complaint History Of Prese nt Illness No Information Functional Status Date Functional Assessmen t No Information Instructions Date Instruction Additional Infor mation No Information Assessments Type Assessment Date No Information Patient Care Teams Name Effective Dates (start - stop) Status Members No Information
--- OUTSIDE RECORDS SUMMARY | 2024-05-27 20:37 | XMS_ITS | Referral Summary ---
Author Organization [facility] Address [address] [place] [address] Care Team Providers Care Manufacturing Applications Engineer Name Role Phone Aly Westfall MD Primary Care Provider [phone] Source Comments [facility] [employer],non-owned Affiliates and Associated Physician Practices is amultiple site organization consisting of ambulatory clinics and hospital sitesin [place], [place], [place] and [place]. This disclosure is being madepursuant to the Care Everywhere program and may not contain all information available regarding this patient. Last updated 17.[facility] Allergies No known active allergies Medications * [...] signed by Dr. Neel Figueroa on 08/28/[address] [place] [address] [phone] S/P total knee arthroplasty, left 05/07/2018 [...] CDT Oxygen Saturation 94% 04/23/2018 9:[address] ASSOCIATE JUSTICE Inhaled Oxygen Concentration - - Weight 72.6 kg (160 lb) 04/23/2018 6:[address] ASSOCIATE JUSTICE Height 162.6 cm (5' 4 ) 04/23/2018 6:[address] ASSOCIATE JUSTICE Body Mass Index 27.46 04/23/2018 6:[address] ASSOCIATE JUSTICE Plan of Treatment Not on file Care Teams Manufacturing Applications Engineer Relationship Specialty Start Date End Date Aly Westfall MD [address] [place] [address] PCP - General 09/02/18
--- NOTE | 2024-05-27 20:45 | ECG_ITS ---
Test Date: 2024-05-27 20:53:09 Measurements Intervals Tenino Rate: 110 P: 42 GA: 157 QRS: 44 QRSD: 84 T: 70 QT: 294 QTc: 399 Interpretive Statements SINUS TACHYCARDIA WITH OCCASIONAL SUPRAVENTRICULAR PREMATURE COMPLEXES LOW QRS VOLTAGE IN PRECORDIAL LEADS [QRS DEFLECTION < 1.0 mV IN CHEST LEADS] NONSPECIFIC ST & T-WAVE ABNORMALITY No previous ECG available for comparison Electronically Signed On 05-28-2024 16:25:15 TERRAZZO TILE MAKER by Shayla Keene M.D.
[2024-05-27 20:48] VITALS: BP 132/54; PULSE 112; RESP 18; TEMP 38.6; O2SAT 100
[2024-05-27 21:24] VITALS: BP 127/56; PULSE 101; RESP 29; TEMP 40; O2SAT 100
[2024-05-27 21:31] LABS: Basophils Percent Auto 0.1 % (0.2-1.2); Eosinophils Percent Auto 0.1 % (0-4.4); Hematocrit 33.8 % (37.0-47.0); Hemoglobin 11.2 g/dL (12.0-15.0); Immature Granulocyte Absolute 0.02 K/mm3 (0.00-0.031); Immature Granulocyte Percent A 0.2 % (0-0.5); Lymphocytes Absolute Auto 0.39 K/mm3 (0.9-3.2); Mean Corpuscular HGB Conc 33.1 g/dl (32-36); Mean Corpuscular Hemoglobin 28.9 pg (26-34); Mean Corpuscular Volume 87.1 fl (80-100); Mean Platelet Volume 11.2 fl (7.4-10.4); Monocytes Percent Auto 10.1 % (2.6-8.5); Neutrophils Absolute Auto 8.2 K/mm3 (1.3-6.7); Neutrophils Percent Auto 85.5 % (45.5-73.1); Platelet Count Result 144 k/mm3 (150-375); Red Blood Count 3.88 M/mm3 (4.2-5.4); Red Cell Distribution Width 14.6 % (11.5-14.5); White Blood Count 9.6 K/mm3 (4.5-10.0)
[2024-05-27] MEDS: ACETAMINOPHEN 500 MG TABLET 1000 MG PO (21:31)
[2024-05-27 21:40] LABS: Lactic Acid Reflex 1.5 mmol/L (0.7-2.0)
[2024-05-27 21:42] LABS: Alanine Aminotransferase 20 U/L (6-35); Alkaline Phosphatase 77 U/L (38-126); Anion Gap 13 mmol/L (4-12); Aspartate Amino Transferase 32 U/L (14-36); Bilirubin,Total 0.8 mg/dL (0.2-1.3); Blood Urea Nitrogen 24 mg/dL (7-17); Calcium 9.1 mg/dL (8.4-10.2); Carbon Dioxide 23 mmol/L (22-30); Chloride 98 mmol/L (98-107); Estimated CRCL calculation 33 ml/min; Estimated Glomerular Filt Rate 46; Glucose 143 mg/dL (65-110); Potassium 3.6 mmol/L (3.4-5.0); Sodium 134 mmol/L (137-145)
--- OUTSIDE RECORDS SUMMARY | 2024-05-27 22:02 | XMS_ITS | Clinical Summary ---
Author Organization [facility] Address [address] [place] [address] Care Team Providers Care International Coordinator Name Role Phone Aly Westfall MD Primary Care Provider [phone] Aly Westfall MD Unavailable [phone] Allergies No known active allergies Medications fidaxomicin [...] signed by Dr. Neel Figueroa on 08/28/[address] [place] [address] [phone] S/P total knee arthroplasty, left 05/07/2018 Complex tear of medial menis cus of left knee as current injury 04/15/2018 Atopic rhinitis 08/07/2013 Overview (06/28/2016): ALLERGIC RHINITIS NOS Encounters Date Type Department Care Team Description 05/06/2024 11:15 AM QA LEAD Office Visit [facility] Orthopedics and Sports Medicine [address] [place] [address] [address], [place] [address] Cassie Ross NP Right knee pain, unspecified chronicity (Primary Dx); Primary osteoarthritis of right knee 05/06/2024 7:42 AM QA LEAD - 05/06/2024 11:59 PM QA LEAD Hospital Encounter [facility] Orthopedics and Sports Medicine [address] [place] [address] [address], [place] [address] Discharge Disposition: Discharge to home or self care 05/06/2024 7:42 AM QA LEAD - 05/06/2024 11:59 PM QA LEAD Hospital Encounter [facility] Orthopedics and Sports Medicine [address] [place] [address] [address], [place] [address] Discharge Disposition: Discharge to home or self care from Last 3 Months Surgical History Surgery Date Site/Laterality Comments KNEE SURGERY 2006 Knee surgery OTHER SURGICAL HISTORY 2006 hemmorhoid surgery Medical History Medical History Date Comments 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 Hx Other Medical 02-ORTHO Family History Medical [...] on file Legal Sex Female 11:58 PM QA LEAD Gender Identity Not on file Sexual Orientation Not on file Obstetrics History Last Filed Vital Signs Vital Sign Reading Time Taken Comments Blood Pressure 124/70 05/06/2024 11:10 AM QA LEAD Pulse 75 05/06/2024 11:10 AM QA LEAD Temperature 37.4 C (99.3 F) 03/22/2019 12:44 PM QA LEAD Respiratory Rate 16 08/11/2018 4:46 PM CDT Oxygen Saturation 97% 08/11/2018 8:00 PM CDT Inhaled Oxygen Concentration - - Weight 75.5 kg (166 lb 8 oz) 05/06/2024 11:10 AM QA LEAD Height 157.5 cm (5' 2 ) 05/06/2024 11:10 AM QA LEAD Body Mass Index 30.45 05/06/2024 11:10 AM QA LEAD Plan of Treatment Health Maintenance Due Date [...] Procedure Name Priority Date/Time Associated Diagnosis Comments [place] ARTHROCENTESIS ASPIR&/INJ MAJOR JT/BURSA W/O US Routine 05/06/2024 11:15 AM QA LEAD Primary osteoarthritis of right knee XR KNEE RIGHT 4 OR MORE VIEWS Schedule Routine, Read Routine (OP Routine) 05/06/2024 11:01 AM QA LEAD Right knee pain, unspecified chronicity XR PELVIS 1 OR 2 VIEWS Schedule Routine, Read Routine (OP Routine) 05/06/2024 11:00 AM QA LEAD Right knee pain, unspecified chronicity from Last 3 Months Results * [place] ARTHROCENTESIS ASPIR&/INJ MAJOR JT/BURSA W/O US (05/06/2024 11:15 AM QA LEAD) Narrative Cassie Ross NP - 05/06/2024 11:15 AM QA LEAD Cassie Ross NP 05/06/2024 11:29 AM Large [...] well with no immediate complications Cassie Ross SUPPLY ASSISTANT IN CLINIC/BEDSIDE ORDER TOBIAS Final Result * XR Knee Right 4 or More Views (05/06/2024 11:01 AM QA LEAD) Anatomical Region Laterality Modality Lower Extremities, Knee Right Digital Radiography Narrative 05/06/2024 11:16 AM QA LEAD Radiographs taken of the right knee today reveal moderate to severe degenerative changes with subchondral sclerosis, osteophyte formation, and diminished joint space. Cassie Ross SUPPLY ASSISTANT IMG XR PROCEDURES Final Result * XR Pelvis 1 or 2 Views (05/06/2024 11:00 AM QA LEAD) Anatomical Region Laterality Modality Body, Pelvis N/A Digital Radiogra phy Narrative 05/06/2024 11:16 AM QA LEAD An AP pelvis taken today reveals evidence of mild degenerative changes of the bilateral hips. Cassie Ross SUPPLY ASSISTANT IMG XR PROCEDURES Final Result from Last 3 Months Additional Health Concerns Infection Onset Date Last Indicated C. difficile Comment:SINCE 04/1006/15/2018 06/14/2018 Insurance MEDICARE COMMERCIAL GENERIC [place] [address] MEDICARE COMMERCIAL GENERIC Care Teams International Coordinator Relationship Specialty Start Date End Date Aly Westflal MD PCP - General 06/15/18 Aly Westfall MD Family Medicine 06/15/18
--- OUTSIDE RECORDS SUMMARY | 2024-05-27 22:02 | XMS_ITS | Clinical Summary ---
Author Organization [facility] [employer] Address [address] [place] [address] Care Team Providers Care Follow Up Specialist Name Role Phone Aly Westfall MD Primary Care Provider [phone]- [phone] Source Comments [facility] [employer],non-owned Affiliates and Associated Physician Practices is amultiple site organization consisting of ambulatory clinics and hospital sitesin [place], [place], [place] and [place]. This disclosure is being madepursuant to the Care Everywhere program and may not contain all information available regarding this patient. Last updated 17.[facility] [employer] Allergies No known active allergies Medications * [...] signed by Dr. Neel Figueroa on 08/28/18 [address] [address] [phone] S/P total knee arthroplasty, left 05/07/2018 [...] CDT Oxygen Saturation 94% 04/23/2018 9:50 AM [facility]NS[facility] HE[employer] COACH Inhaled Oxygen Concentration - - Weight 72.6 kg (160 lb) 04/23/2018 6:22 AM [facility]NSITE HE[facility] COACH Height 162.6 cm (5' 4 ) 04/23/2018 6:22 AM [facility]NS[facility] HE[facility] COACH Body Mass Index 27.46 04/23/2018 6:22 AM ONSITE HEALTH COACH Plan of Treatment Health Maintenance Due Date [...] age to complete this topic Care Teams Follow Up Specialist Relationship Specialty Start Date End Date Aly Westfall MD [address] [place] [phone] PCP - General 09/02/18
--- OUTSIDE RECORDS SUMMARY | 2024-05-27 22:02 | XMS_ITS | Patient Health Summary ---
Author Organization [facility] Address [address] [place] [address] Care Team Providers Care Senior Cost Estimator Name Role Phone Aly Westfall MD Primary Care Provider [phone]- [phone] Note from [facility],non-owned Affiliates and Associated Physician Practices is amultiple site organization consisting of ambulatory clinics and hospital sitesin [place], [place] and [place]. This disclosure is being madepursuant to the Care Everywhere program and may not contain all information available regarding this patient. Last updated 17.[facility] Allergies No known active allergies Medications * [...] CDT Oxygen Saturation 94% 04/23/2018 9:50 AM ASSEMBLER FINAL Inhaled Oxygen Concentration - - Weight 72.6 kg (160 lb) 04/23/2018 6:22 AM ASSEMBLER FINAL Height 162.6 cm (5' 4 ) 04/23/2018 6:22 AM ASSEMBLER FINAL Body Mass Index 27.46 04/23/2018 6:22 AM ASSEMBLER FINAL Procedures * LARYNGEAL MASK AIRWAY(Performed 04/23/2018) * ARTHROSCOPY KNEE MENISCAL REPAIR (MEDIAL/LATERAL)(Performed 04/23/2018) * MRI KNEE LEFT WO CONTRAST(Performed 04/13/2018) Performed for Chronic pain of left knee * XR KNEE LEFT 3VW(Performed 04/02/2018) Performed for Chronic pain of left knee Results * LARYNGEAL MASK AIRWAY (04/23/2018 9:47 AM ASSEMBLER FINAL) Narrative Beatris Villasenor, DO - 04/23/2018 9:47 AM ASSEMBLER FINAL Rita Felipe, CORPORATE VP ADVERTISING & ONLINE-OPERATING SYSTEMS PROGRAMMER 04/23/2018 7:29 AM LMA Placement Procedure/LDA Note: [...] KNEE LEFT WO CONTRAST (04/13/2018 12:30 PM ASSEMBLER FINAL) Anatomical Region Laterality Modality Lower Extremity Magnetic Resonan ce 04/13/2018 1:56 PM ASSEMBLER FINAL Impressions 04/13/2018 3:01 PM ASSEMBLER FINAL HIGH-GRADE CHONDROMALACIA INVOLVING THE APEX AND MEDIAL [...] at 3:01 PM Narrative 04/13/2018 3:01 PM ASSEMBLER FINAL MRI LEFT KNEE WITHOUT CONTRAST CLINICAL INDICATION: [...] of the musculature is normal. Procedure Note Deolres Hernandez MD - 04/13/2018 MRI LEFT KNEE [...] XR KNEE LEFT 3VW (04/02/2018 4:23 PM ASSEMBLER FINAL) Anatomical Region Laterality Modality Lower Extremity Computed Radiogr aphy Narrative 04/13/2018 1:53 PM ASSEMBLER FINAL Tabitha Nuñez, RT(R) 04/13/2018 1:53 PM See Chart For Xray Report Estrellita Bean PA-C DIAGNOSTIC IM AGING ORDERABLES Care Teams Senior Cost Estimator Relationship Specialty Start Date End Date Aly Westfall MD [facility] [place] [address] PCP - General 09/02/18
--- OUTSIDE RECORDS SUMMARY | 2024-05-27 22:02 | XMS_ITS | Referral Summary ---
Author Organization [facility] Address [address] [place] [address] Care Team Providers Care Sales Representative Facility Services Name Role Phone Aly Westfall MD Primary Care Provider [phone] [facility],non-owned Affiliates and Associated Physician Practices is amultiple site organization consisting of ambulatory clinics and hospital sitesin [place], [place], [place] and [place]. This disclosure is being madepursuant to the Care Everywhere program and may not contain all information available regarding this patient. Last updated 17.[facility] Allergies No known active allergies Medications * [...] signed by Dr. Neel Figueroa on 08/28/[address] [place] [address] [phone] S/P total knee arthroplasty, left 05/07/2018 [...] CDT Oxygen Saturation 94% 04/23/2018 9:50 AM PRINTED CIRCUIT BOARDS LAMINATOR Inhaled Oxygen Concentration - - Weight 72.6 kg (160 lb) 04/23/2018 6:22 AM PRINTED CIRCUIT BOARDS LAMINATOR Height 162.6 cm (5' 4 ) 04/23/2018 6:22 AM PRINTED CIRCUIT BOARDS LAMINATOR Body Mass Index 27.46 04/23/2018 6:22 AM PRINTED CIRCUIT BOARDS LAMINATOR Plan of Treatment Not on file Care Teams Sales Representative Facility Services Relationship Specialty Start Date End Date Aly Westfall MD [address] [place] [phone] PCP - General 09/02/18
--- OUTSIDE RECORDS SUMMARY | 2024-05-27 22:02 | XMS_ITS | Referral Summary ---
Author Organization [facility] Address [address] [place] [id number] Care Team Providers Care Robotics Application Engineer Name Role Phone Aly Westfall MD Primary Care Provider [phone] Aly Westfall MD Unavailable [phone] Encounters Date Type Department Care Team Description 05/06/2024 7:42 AM BIOGEOGRAPHER - 05/06/2024 11:59 PM BIOGEOGRAPHER Hospital Encounter [facility] Medical [facility] and Sports Medicine [address] [place] [address] [place] [phone] Discharge Disposition: Discharge to home or self care 05/06/2024 7:42 AM BIOGEOGRAPHER - 05/06/2024 11:59 PM BIOGEOGRAPHER Hospital Encounter [facility] Medical [facility] Medicine [address] [place] [address] [place] [phone] Discharge Disposition: Discharge to home or self care 05/06/2024 11:15 AM BIOGEOGRAPHER Office Visit [facility] Medical [facility] Medicine [address] [place] [address] [address], [place] [phone] Cassie Ross NP Right knee pain, unspecified [...] signed by Dr. Neel Figueroa on 08/28/18 [address] [place] [address] [phone] S/P total knee arthroplasty, left 05/07/2018 [...] on file Legal Sex Female 11:58 PM BIOGEOGRAPHER Gender Identity Not on file Sexual Orientation Not on file Last Filed Vital Signs Vital Sign Reading Time Taken Comments Blood Pressure 124/70 05/06/2024 11:10 AM BIOGEOGRAPHER Pulse 75 05/06/2024 11:10 AM BIOGEOGRAPHER Temperature 37.4 C (99.3 F) 03/22/2019 12:44 PM BIOGEOGRAPHER Respiratory Rate 16 08/11/2018 4:46 PM CDT Oxygen Saturation 97% 08/11/2018 8:00 PM CDT Inhaled Oxygen Concentration - - Weight 75.5 kg (166 lb 8 oz) 05/06/2024 11:10 AM BIOGEOGRAPHER Height 157.5 cm (5' 2 ) 05/06/2024 11:10 AM BIOGEOGRAPHER Body Mass Index 30.45 05/06/2024 11:10 AM BIOGEOGRAPHER Plan of Treatment Not on file Procedures Procedure Name Priority Date/Time Associated Diagnosis Comments [place] ARTHROCENTESIS ASPIR&/INJ MAJOR JT/BURSA W/O US Routine 05/06/2024 11:15 AM BIOGEOGRAPHER Primary osteoarthritis of right knee XR KNEE RIGHT 4 OR MORE VIEWS Schedule Routine, Read Routine (OP Routine) 05/06/2024 11:01 AM BIOGEOGRAPHER Right knee pain, unspecified chronicity XR PELVIS 1 OR 2 VIEWS Schedule Routine, Read Routine (OP Routine) 05/06/2024 11:00 AM BIOGEOGRAPHER Right knee pain, unspecified chronicity from Last 3 Months Results * [place] ARTHROCENTESIS ASPIR&/INJ MAJOR JT/BURSA W/O US (05/06/2024 11:15 AM BIOGEOGRAPHER) Narrative Cassie oRss NP - 05/06/2024 11:15 AM BIOGEOGRAPHER Cassie Ross NP 05/06/2024 11:29 AM Large [...] well with no immediate complications Cassie Ross MANAGER PROFESSIONAL DEVELOPMENT IN CLINIC/BEDSIDE ORDER TOBIAS Final Result * XR Knee Right 4 or More Views (05/06/2024 11:01 AM BIOGEOGRAPHER) Anatomical Region Laterality Modality Lower Extremities, Knee Right Digital Radiography Narrative 05/06/2024 11:16 AM BIOGEOGRAPHER Radiographs taken of the right knee today reveal moderate to severe degenerative changes with subchondral sclerosis, osteophyte formation, and diminished joint space. Cassie Ross MANAGER PROFESSIONAL DEVELOPMENT IMG XR PROCEDURES Final Result * XR Pelvis 1 or 2 Views (05/06/2024 11:00 AM BIOGEOGRAPHER) Anatomical Region Laterality Modality Body, Pelvis N/A Digital Radiogra phy Narrative 05/06/2024 11:16 AM BIOGEOGRAPHER An AP pelvis taken today reveals evidence of mild degenerative changes of the bilateral hips. Cassie Ross MANAGER PROFESSIONAL DEVELOPMENT IMG XR PROCEDURES Final Result from Last 3 Months Additional Health Concerns Infection Onset Date Last Indicated C. difficile Comment:SINCE 04/1006/15/2018 06/14/2018 Insurance [place] [address] MEDICARE COMMERCIAL GENERIC MEDICARE COMMERCIAL GENERIC Care Teams Robotics Application Engineer Relationship Specialty Start Date End Date Aly Westfall MD PCP - General 06/15/18 Aly Westfall MD Family Medicine 06/15/18
--- OUTSIDE RECORDS SUMMARY | 2024-05-27 22:02 | XMS_ITS | Continuity of Care Document ---
Author Organization [facility] Address [address] [place] [address] Phone Care Team Providers Care Freight Representative Name Role Phone Tommy JORGENSEN, Jean-Claude Unavailable Unavailable Procedures Procedure Date Eye [...] Diagnoses Date Provider Providers Copied on Encounter [facility], [address], [place], [place], [id number], [place] tel:[phone] [place] Professional No Information 8 Tommy Bermeo. [address] [facility] [place] [place], [id number], [place]. tel:[phone] Referring Provider: Jean-Claude Wall, [address] [facility] [facility], [place], [address]. tel:[phone] [facility], [address], [place], [place], [id number], [phone] [place] Professional No Information Sep-0 7-201 0 Sergeydeion Bermeo. [address] [facility], [facility] A, [place], [place], [id number], [place]. tel:[phone] [facility], [address], [place], [place], [id number], [place] tel:[phone] [facility] No Information 1-200 9 [facility] . [address], [address], [place], [place], [address], [place]. tel:[phone] Referring Provider: Jean-Claude Wall, [address] [facility], [place], [address]. tel:[phone] g Provider: Shakira Urbano, [address] [facility], [place], [address]. tel:[phone] 1876 [facility], [address], [place], [place], [address], [place] tel:[phone] [facility] [place] Professional No Information 4200 [address] Liorfarshad Agald. [address] [facility] [place], [address], [place]. tel:[phone] Office/outpa [place]ient Visit, [facility] [address], [place], [place], [address], [place] tel:[phone] [facility] [place] Professional No Information 0 5-200 8 Liorfarshad Bermeo. [address], [facility] [place], [address], [place]. tel:[phone] Family History Family Member Type Diagnosis Age At Onset No Information Payers Payer name Insurance type Covered constitution party ID Authoriza tiroscoe(s) [place] [id number] Social History Type Description Quantity Date Captured [...]
[2024-05-27 22:06] LABS: Influenza A QL RT-PCR Negative (Negative); Influenza B QL RT-PCR Negative (Negative); RSV RNA, RT-PCR Negative (Negative); SARS-CoV-2 RNA PCR Negative (Negative)
[2024-05-27 22:07] VITALS: BP 116/55; PULSE 107; RESP 21; O2SAT 95
[2024-05-27 22:08] LABS: Magnesium 1.6 mg/dL (1.6-2.3)
[2024-05-27] MEDS: SODIUM CHLORIDE 0.9% IV 1,000 ML 999 ML IV CONT ×2 (22:15)
[2024-05-27 22:29] LABS: Procalcitonin 8.2 ng/mL
[2024-05-27 23:24] VITALS: BP 110/50; PULSE 92; RESP 21; O2SAT 96
[2024-05-28] VITALS (12 sets, daily range): BP systolic 102–125; BP diastolic 41–58; PULSE 80–97; RESP 15–26; TEMP 36.4–38.4; O2SAT 93–98; BMI 29.9
[2024-05-28 00:23] LABS: Add Urine Microscopic? YES; Appearance Urine Cloudy (Clear); Bacteria Urine 4+ /hpf; Bilirubin Urine Negative (Negative); Blood Urine 3+ (Negative); Budding Yeast Urine Present /hpf; Color Urine Yellow (Yellow); Glucose Urine UA Negative (Negative); Ketones Urine 1+ mg/dL (Negative); Leukocyte Esterase Ur 1+ LEU/UL (Negative); Need Manual Microscopic Reviewed; Nitrate Urine Positive (Negative); Protein Urine 2+ mg/dL (Negative); RBC Urine 21-50 /hpf (0-2); Specific Grav Ur 1.041 (1.001-1.035); Squamous Epithelial Cell Urine None Seen /hpf (Few); Urobilinogen Urine 0.2 mg/dL (<2.0); WBC Urine 21-50 /hpf (0-3)
--- NOTE | 2024-05-28 00:43 | ED_ITS ---
HPI - General Adult General Chief complaint: Weakness Stated complaint: weakness, fever, n/v Time Seen by Provider: 05/27/24 21:28 History of Present Illness HPI narrative: Patient 78-year-old female who presents emergency department chief complaint of nausea vomiting diarrhea generalized weakness since Friday. Patient has been having uncontrollable diarrhea and has also had fevers. The patient has been not able to keep fluid down or food down the patient does have prior history of C diff after she had been treated with Levaquin. The patient states that her abdomen feels uncomfortable Related Data Home Medications ?Medication ?Instructions ?Recorded ?Confirmed ?Last Taken ?Type cholecalciferol (vitamin D3) 10 10 mcg PO DAILY 05/21/19 12/29/23 12/28/23 History mcg (400 unit) capsule (Vitamin D3) lutein 25 mg-zeaxanthin 5 mg 1 cap PO DAILY 03/01/20 12/29/23 12/28/23 History capsule (Ocuvite Lutein) fluticasone propionate 50 2 spray intranasal .PRN PRN Nasal 10/29/22 12/29/23 12/28/23 History mcg/actuation nasal Congestion spray,suspension (Flonase Allergy Relief) fluticasone furoate 200 1 inh inhalation .PRN PRN Cough 12/12/23 12/29/23 12/28/23 History mcg-vilanterol 25 mcg/dose inhalation powder (Breo Ellipta) Allergies Allergy/AdvReac Type Severity Reaction Status Date / Time lisinopril AdvReac Mild Cough Verified 05/27/24 20:36 Review of Systems 2 Review of Systems: A 10 system review of systems was completed on the patient and is negative except for what is stated in the HPI. Nursing and ancillary documentation was reviewed. [facility] Past Medical History Medical History Overweight (BMI 25.0-29.9) Fibroids Hypothyroidism HTN (hypertension) H/O cataract Fatigue C. difficile colitis Anemia in chronic illness Family history of malignant neoplasm of breast Hypothyroidism (acquired) Insomnia due to anxiety and fear Leiomyoma of uterus, unspecified Phobic anxiety disorder, unspecified Rectal polyp Surgical History Surgical History S/P cholecystectomy (~05/2019) H/O hemorrhoidectomy History of knee surgery Family History Family History Sibling Hypertension Father Cerebrovascular accident Patient's father is , Onset Age: 90 Mother Family history of malignant neoplasm of breast in first degree relative, Onset Age: 48 Family history of cardiovascular disease Social History Social History Smoking status: Never smoker Alcohol intake: former Drinks per week: 1 Alcohol use details: social Substance use: never Substance use type: does not use Lack of Transportation: No Lack of Food: Never True Current Housing: I Have Housing Concerned About Future Housing: No Difficulty Paying Gas/Electric Bills: No Difficulty Paying for Meds: No Currently Unemployed: No Education: Associate Degree Difficulty w/ Childcare or Family Care: No Living arrangements: with family Gender identity (if verbalized by the patient): Female Spiritual care concerns: No Agree to blood products: Yes Exam 2 Narrative: GENERAL: Well-appearing, well-nourished, and in no acute distress. HEAD: Normocephalic, atraumatic. EYES: PERRLA and EOMI. ENT: Nares clear, no rhinorrhea or epistaxis. Mucous membranes moist. NECK: Supple. CHEST: Clear to auscultation. No respiratory distress. HEART: Regular rate and rhythm. No murmur heard. Normal peripheral pulses. ABDOMEN: Soft, nontender, nondistended, normal active bowel sounds. EXTREMITIES: Normal range of motion. No edema. SKIN: Warm, dry, no rash. NEURO: No focal deficits. Alert and oriented x3. PSYCH: Normal mood and affect. Course Vital Signs Vital signs: Vital Signs Temperature 38.6 C H 05/27/24 20:48 Pulse Rate 112 H 05/27/24 20:48 Respiratory Rate 18 05/27/24 20:48 Blood Pressure 132/54 L 05/27/24 20:48 Pulse Oximetry 100 05/27/24 20:48 Oxygen Delivery Room Air 05/27/24 20:48 Temperature 38.1 C H 05/28/24 00:22 Pulse Rate 97 05/28/24 00:22 Respiratory Rate 15 05/28/24 00:22 Blood Pressure 125/58 L 05/28/24 00:22 Pulse Oximetry 98 05/28/24 00:22 Oxygen Delivery Room Air 05/27/24 20:48 Medical Decision Making [facility] Narrative Medical decision making narrative: Differential diagnosis includes colitis, diverticulitis, UTI, sepsis, COVID, flu, RSV Urinalysis showed 21-50 white blood cells and 4+ bacteria COVID flu RSV were negative chest x-ray was clean electrolytes showed a lactic acid of 1.5 creatinine was 1.14 BUN was 24 CBC showed a white count 9.6 CT scan of the abdomen pelvis showed 1. Enhancement in the wall of the left renal pelvis and ureter suggestive of infection. 2. Fluid content in the right side of the colon suggestive of diarrhea. Enteritis is possible. 3. Slightly dilated intrahepatic bile ducts. Case was discussed with the hospitalist patient will be admitted for further care Vital Signs Vital Signs: Vital Signs Temperature 38.6 C H 05/27/24 20:48 Pulse Rate 112 H 05/27/24 20:48 Respiratory Rate 18 05/27/24 20:48 Blood Pressure 132/54 L 05/27/24 20:48 Pulse Oximetry 100 05/27/24 20:48 Oxygen Delivery Room Air 05/27/24 20:48 Temperature 38.1 C H 05/28/24 00:22 Pulse Rate 97 05/28/24 00:22 Respiratory Rate 15 05/28/24 00:22 Blood Pressure 125/58 L 05/28/24 00:22 Pulse Oximetry 98 05/28/24 00:22 Oxygen Delivery Room Air 05/27/24 20:48 Lab Data 05/27/24 21:21 05/27/24 21:21 Labs: Lab Results 05/27/24 05/28/24 Range/Units 21:21 00:05 WBC 9.6 (4.5-10.0) K/mm3 RBC 3.88 L (4.2-5.4) M/mm3 Hgb 11.2 L (12.0-15.0) g/dL Hct 33.8 L (37.0-47.0) % MCV 87.1 (80-100) fl MCH 28.9 (26-34) pg MCHC 33.1 (32-36) g/dl RDW 14.6 H (11.5-14.5) % Plt Count 144 L (150-375) k/mm3 MPV 11.2 H (7.4-10.4) fl Immature Gran % (Auto) 0.2 (0-0.5) % Neut % (Auto) 85.5 H (45.5-73.1) % Lymph % (Auto) 4.0 L (18.3-44.2) % [place] % (Auto) 10.1 H (2.6-8.5) % Eos % (Auto) 0.1 (0-4.4) % Baso % (Auto) 0.1 L (0.2-1.2) % Lymph # (Auto) 0.39 L (0.9-3.2) K/mm3 [place] # (Auto) 1.0 H (0.1-0.6) K/mm3 Eos # (Auto) 0.0 (0-0.3) K/mm3 Baso # (Auto) 0.0 (0.0-0.1) K/mm3 Abs Immat Gran (auto) 0.02 (0.00-0.031) K/mm3 Absolute Neuts (auto) 8.2 H (1.3-6.7) K/mm3 Absolute Nucleated RBC 0.000 (0.0-0.012) K/mm3 Nucleated RBC % 0.0 (0.0-0.2) % Sodium 134 L (137-145) mmol/L Potassium 3.6 (3.4-5.0) mmol/L Chloride 98 (98-107) mmol/L Carbon Dioxide 23 (22-30) mmol/L Anion Gap 13 H (4-12) mmol/L BUN 24 H D (7-17) mg/dL Creatinine 1.14 H (0.7-1.0) mg/dL Estim Creat Clear Calc 33 ml/min Estimated GFR 46 L (59 - ) Glucose 143 H (65-110) mg/dL Lactic Acid 1.5 (0.7-2.0) mmol/L Calcium 9.1 (8.4-10.2) mg/dL Magnesium 1.6 (1.6-2.3) mg/dL Total Bilirubin 0.8 (0.2-1.3) mg/dL AST 32 (14-36) U/L ALT 20 (6-35) U/L Alkaline Phosphatase 77 (38-126) U/L Total Protein 7.0 (6.3-8.2) g/dL Albumin 4.0 (3.5-5.1) g/dL Procalcitonin 8.2 ng/mL Urine Color Yellow (Yellow) Urine Appearance Cloudy H (Clear) Urine pH 5.0 (5.0-9.0) Ur Specific [place] 1.041 H (1.001-1.035) Urine Protein 2+ H (Negative) mg/dL Urine Glucose (UA) Negative (Negative) mg/dL Urine Ketones 1+ H (Negative) mg/dL Ur Blood (Man) 3+ H (Negative) Urine Nitrate Positive H (Negative) Urine Bilirubin Negative (Negative) Urine Urobilinogen 0.2 (<2.0) mg/dL Add Ur Microanalysis Reviewed Leukocyte Esterase Rfl 1+ H (Negative) LAMBERT/UL Urine RBC 21-50 H (0-2) /hpf Urine WBC 21-50 H (0-3) /hpf Ur Squamous Epith Cells None seen (Few) /hpf Urine Bacteria 4+ H /hpf Urine Casts 11-20 Urine Yeast (Budding) Present H (None) /hpf Influenza A (RT-PCR) Negative (Negative) Influenza B (RT-PCR) Negative (Negative) RSV (RT-PCR) Negative (Negative) SARS-CoV-2 RNA (RT-PCR) Negative (Negative) Discharge Plan Discharge Clinical Impression: Acute UTI, Colitis Patient Disposition: Still a Patient Condition: Stable Patient Language: Bengali Prescriptions: No Action cholecalciferol (vitamin D3) [Vitamin D3] 10 mcg (400 unit) capsule 10 mcg PO DAILY fluticasone propionate [Flonase Allergy Relief] 50 mcg/actuation spray,suspension 2 spray intranasal .PRN PRN (Reason: Nasal Congestion) Rx Instructions: administer into each nostril lutein-zeaxanthin [Ocuvite Lutein 25] 25-5 mg capsule 1 cap PO DAILY fluticasone furoate-vilanterol [Breo Ellipta] 200-25 mcg/dose blister with device 1 inh inhalation .PRN PRN (Reason: Cough) irbesartan 300 mg tablet 300 mg PO DAILY Qty: 100 3RF levothyroxine [Synthroid] 75 mcg tablet 75 mcg PO DAILY Qty: 90 1RF escitalopram oxalate [Lexapro] 20 mg tablet 20 mg PO DAILY Qty: 90 1RF budesonide 3 mg capsule,delayed,extend.release 6 mg PO DAILY 90 Days Qty: 180 3RF Rx Instructions: TAKE 2 CAPSULES BY MOUTH DAILY omeprazole 40 mg capsule,delayed release(DR/EC) 40 mg PO BID Qty: 60 2RF Follow-up/Referrals: Aly Westfall MD [Primary Care Provider] - Time of Disposition: 00:46
--- NOTE | 2024-05-28 01:35 | P.HP_ITS ---
H&P: HPI History of Present Illness Date/Time: 05/28/24 01:35 Chief Complaint: Weakness. Narrative: This is a very pleasant 78-year-old female with history of C diff colitis, collagenous colitis, gastric ulcer, hypertension, and hypothyroidism who presented to the emergency department via private vehicle with complaints of weakness. The patient provides the following history. She has not been feeling well since Friday with symptoms to include fever, poor appetite, nausea, vomiting, diarrhea, dysuria, increasing urinary frequency, and discomfort in the suprapubic region. She has become increasingly weak and is feeling dehydrated. Today she fell onto her bottom while walking because she was so weak. At the time of my evaluation she is complaining of a diffuse frontal headache and is requesting Excedrin. She denies neck ache, sinus congestion, sore throat, chest pain, cough, and abdominal pain. She has not been on any antibiotics recently. Diarrhea is not similar to that which he experienced with C diff. In the ED: Vital signs on arrival include a temperature of 101.4?, blood pressure 132/54, pulse 112, respiratory rate 18, SpO2 100% on room air. Labs were significant for WBC count of 9.6, hemoglobin 11.2, platelet 144, sodium 134, BUN 24, creatinine 1.14, glucose 143, lactic acid 1.5, procalcitonin 8.2. Urine was concentrated with 2+ protein, 1+ ketones, 3+ blood, positive nitrates, 21 to 50 RBC and WBC, and 4+ bacteria. C difficile was negative as was her respiratory panel. CT of the abdomen and pelvis showed enhancement in the wall of the left renal pelvis and ureter suggestive of infection, fluid in the right side of the colon suggestive of diarrhea, and slightly dilated intrahepatic bile ducts. She received 2 L normal saline and is being admitted in this setting for further treatment. Review of Systems Review of Systems: 12 systems were reviewed and are negativ e except for as per HPI. [facility] Past Medical History Medical History (Updated 05/28/24 @ 05:48 by Ann Cuba PA-C) Hypertension Fibroids Hypothyroidism Fatigue C. difficile colitis Anemia in chronic illness Insomnia due to anxiety and fear Leiomyoma of uterus, unspecified Phobic anxiety disorder, unspecified Rectal polyp Surgical History Surgical History (Updated 05/28/24 @ 01:39 by Ann Cuba PA-C) History of cholecystectomy (05/2019) History of hemorrhoidectomy History of cataract extraction History of knee surgery Family History Family History Sibling Hypertension Father Cerebrovascular accident Patient's father is , Onset Age: 90 Mother Family history of malignant neoplasm of breast in first degree relative, Onset Age: 48 Family history of cardiovascular disease Social History Social History (Updated 05/28/24 @ 01:39 by Ann Cuba PA-C) Social History: Surrogate medical decision maker: Lashae Nettles, daughter ([phone]). Code status: Full code. Smoking status: Never smoker Alcohol intake: former Drinks per week: 1 Alcohol use details: social Substance use: never Substance use type: does not use Do You Feel Safe in your Home?: Yes Lack of Transportation: No Lack of Food: Never True Current Housing: I Have Housing Concerned About Future Housing: No Difficulty Paying Gas/Electric Bills: No Difficulty Paying for Meds: No Currently Unemployed: No Education: Decline to Answer Difficulty w/ Childcare or Family Care: No Living arrangements: with family Spiritual care concerns: No Agree to blood products: Yes Meds Home Medications and Allergies Home Medications ?Medication ?Instructions ?Recorded ?Confirmed ?Type cholecalciferol (vitamin D3) 10 10 mcg PO DAILY 05/21/19 05/28/24 History mcg (400 unit) capsule (Vitamin D3) lutein 25 mg-zeaxanthin 5 mg 1 cap PO DAILY 03/01/20 05/28/24 History capsule (Ocuvite Lutein) fluticasone propionate 50 2 spray intranasal .PRN PRN Nasal 10/29/22 05/28/24 History mcg/actuation nasal Congestion spray,suspension (Flonase Allergy Relief) irbesartan 300 mg tablet 300 mg PO DAILY #100 tabs 07/10/23 05/28/24 Rx fluticasone furoate 200 1 inh inhalation .PRN PRN Cough 12/12/23 05/28/24 History mcg-vilanterol 25 mcg/dose inhalation powder (Breo Ellipta) levothyroxine 75 mcg tablet 75 mcg PO DAILY #90 tabs 12/18/23 05/28/24 Rx (Synthroid) escitalopram oxalate 20 mg tablet 20 mg PO DAILY #90 tabs 12/25/23 05/28/24 Rx (Lexapro) budesonide 3 mg 6 mg (2 x 3 mg) PO DAILY 3 months 04/21/24 05/28/24 Rx capsule,delayed,extended release #180 ea omeprazole 40 mg capsule,delayed 40 mg PO BID PRN GERD 05/28/24 05/28/24 History release Allergies Allergy/AdvReac Type Severity Reaction Status Date / Time lisinopril AdvReac Mild Cough Verified 05/27/24 20:36 Vital Signs Vital Signs - 24 hr 05/27/24 20:48 05/27/24 21:24 05/27/24 22:07 Temperature 101.4 F H 104 F H Pulse Rate 112 H 101 H 107 H Respiratory Rate 18 29 H 21 H Blood Pressure 132/54 L 127/56 L 116/55 L Pulse Oximetry 100 100 95 Oxygen Delivery Room Air 05/28/24 00:22 Temperature 100.5 F H Pulse Rate 97 Respiratory Rate 15 Blood Pressure 125/58 L Pulse Oximetry 98 Oxygen Delivery Exam Narrative: General: Moderately ill-appearing female in the semi-العلي position in bed. Weight: 76.7 kg. BMI: 30.0. HEENT: PERRL, EOMI. Sclera anicteric. Dry mucous membranes. Neck: Supple. Respiratory: Lungs are clear to auscultation bilaterally. Cardiovascular: Regular rate and rhythm with S1-S2. Gastrointestinal: Abdomen is soft, nontender, and nondistended with positive bowel sounds. No guarding or rebound tenderness. No CVA tenderness. Skin: Warm and dry. Extremities: No cyanosis, clubbing, or edema. Radial and pedal pulses intact. Neurological: Alert. Cranial nerves 2-12 are grossly intact. No gross focal deficits to casual conversation. Psychiatric: Pleasant and cooperative with normal mood and affect. Judgment and insight intact. H&P: Results Labs Labs: Short CBC 05/27/24 Range/Units 21:21 WBC 9.6 (4.5-10.0) K/mm3 Hgb 11.2 L (12.0-15.0) g/dL Hct 33.8 L (37.0-47.0) % Plt Count 144 L (150-375) k/mm3 BMP 05/27/24 21:21 Sodium 134 L Potassium 3.6 Chloride 98 Carbon Dioxide 23 BUN 24 H D Creatinine 1.14 H Glucose 143 H Calcium 9.1 Liver Function 05/27/24 Range/Units 21:21 Total Bilirubin 0.8 (0.2-1.3) mg/dL AST 32 (14-36) U/L ALT 20 (6-35) U/L Alkaline Phosphatase 77 (38-126) U/L Albumin 4.0 (3.5-5.1) g/dL Urine 05/28/24 Range/Units 00:05 Urine Color Yellow (Yellow) Urine Appearance Cloudy H (Clear) Urine pH 5.0 (5.0-9.0) Ur Specific [place] 1.041 H (1.001-1.035) Urine Protein 2+ H (Negative) mg/dL Urine Glucose (UA) Negative (Negative) mg/dL Imaging Chest X-Ray 05/27/24 21:19 IMPRESSION: 1. No acute cardiopulmonary pathology. Abdomen/Pelvis CT 05/27/24 22:09 IMPRESSION: 1. Enhancement in the wall of the left renal pelvis and ureter suggestive of infection. 2. Fluid content in the right side of the colon suggestive of diarrhea. Enteritis is possible. 3. Slightly dilated intrahepatic bile ducts. Assessment and Plan Assessment and plan (1) Sepsis: Code(s): A41.9 - Sepsis, unspecified organism Status: Acute (2) Urinary tract infection: Code(s): N39.0 - Urinary tract infection, site not specified Status: Acute (3) Acute kidney injury: Code(s): N17.9 - Acute kidney failure, unspecified Status: Acute (4) Dehydration: Code(s): E86.0 - Dehydration Status: Acute (5) Enteritis: Code(s): K52.9 - Noninfective gastroenteritis and colitis, unspecified Status: Acute (6) Essential (primary) hypertension: Code(s): I10 - Essential (primary) hypertension Status: Acute (7) Hypothyroidism (acquired): Code(s): E03.9 - Hypothyroidism, unspecified Status: Acute Plan The patient presented to the emergency department with complaints of weakness and several other symptoms for the past week or so as detailed in HPI. Labs, imaging, EKG, and all reports were personally reviewed. She meets sepsis criteria with fever, tachycardia, hypotension responsive to IV fluids, and acute kidney injury in the setting of urinary tract infection. She has been started on ceftriaxone and blood and urine cultures are pending. Acute kidney injury is likely related to a combination of factors including dehydration from poor oral intake, vomiting, and diarrhea and relative hypotension. I suspect her renal function will normalize with IV fluids. Avoid all nephrotoxic agents and renally dose all medications. Antihypertensives will be placed on hold for now. CT scan shows findings of possible enteritis and she has also been started on metronidazole. C diff was negative; send stool for culture. Continue levothyroxine and check TSH. The rest of her home medications will be reviewed and resumed as appropriate. Findings and treatment plan were discussed with the patient. Questions were solicited and answered to satisfaction. The patient's medical management will be taken over by the hospitalist team in a.m. Quality VTE Prophylaxis VTE prophylaxis: pharmacologic ordered The patient has been admitted under observation status. Hospitalist [facility] Advance Care Plan I have confirmed that the patient's Advanced Care Plan is present, code status is documented, or surrogate decision maker is listed in patient medical record.: Yes Medication Reconciliation I have utilized all available resources to obtain, update and review the patie nts current medications (includes all prescriptions, OTC, herbals, cannabis, and nutritional supplements).: Yes
[2024-05-28 01:40] LABS: Toxigenic C. Diff NEGATIVE (NEGATIVE)
[2024-05-28] MEDS: ACETAMINOPHEN/ASPIRIN/CAFFEINE 250-250-65 MG TABLET 1 TABLET PO (01:57)
--- NOTE | 2024-05-28 02:45 | ADMGEN ---
This patient, Abby Cole, was admitted to [facility] Surg Room 332-02. Patient/family oriented to hospital policies and general routines including ID bracelet, bed and alarms, visiting hours, pain management, procedures, bathroom and other care routines, personal items, smoking policy, room service/diet, and visiting hours. Information on how to activate the Rapid Response Team has been discussed. Patient/Family are encouraged to report perceived risks to care and to ask questions if they do not understand what they are told or what they should do.
[2024-05-28] MEDS: SODIUM CHLORIDE 0.9% IV 1,000 ML 125 ML IV CONT (03:14)
[2024-05-28 06:37] LABS: Hematocrit 27.4 % (37.0-47.0); Hemoglobin 8.7 g/dL (12.0-15.0); Mean Corpuscular HGB Conc 31.8 g/dl (32-36); Mean Corpuscular Hemoglobin 28.4 pg (26-34); Mean Corpuscular Volume 89.5 fl (80-100); Mean Platelet Volume 11.4 fl (7.4-10.4); Platelet Count Result 118 k/mm3 (150-375); Red Blood Count 3.06 M/mm3 (4.2-5.4); Red Cell Distribution Width 14.6 % (11.5-14.5); White Blood Count 6.5 K/mm3 (4.5-10.0)
[2024-05-28 06:42] LABS: Anion Gap 9 mmol/L (4-12); Blood Urea Nitrogen 21 mg/dL (7-17); Calcium 7.5 mg/dL (8.4-10.2); Carbon Dioxide 21 mmol/L (22-30); Chloride 104 mmol/L (98-107); Estimated CRCL calculation 44 ml/min; Estimated Glomerular Filt Rate > 60; Glucose 104 mg/dL (65-110); Magnesium 1.6 mg/dL (1.6-2.3); Potassium 3.3 mmol/L (3.4-5.0); Sodium 134 mmol/L (137-145)
--- NOTE | 2024-05-28 07:27 | P.PNIM_ITS ---
Progress Note: A&P Assessment and Plan (1) Sepsis: Code(s): A41.9 - Sepsis, unspecified organism Status: Acute Assessment and Plan: Meets SIRS criteria: febrile, tachycardia, hypotension, NANCY, source - lactic acid: 1.5 - received sepsis bolus in the ED - suspected source: UTI - blood cultures drawn on 05/27: gram negative bacilli - UA: 2+ protein, 1+ ketones, 3+ blood, positive nitrates, 21 to 50 RBC and WBC, and 4+ bacteria - UC obtained on 05/28: pending - C diff negative, stool culture pending - CXR: unremarkable - CT abdomen/pelvis: 1. Enhancement in the wall of the left renal pelvis and ureter suggestive of infection. 2. Fluid content in the right side of the colon suggestive of diarrhea. Enteritis is possible. 3. Slightly dilated intrahepatic bile ducts. (2) Urinary tract infection: Code(s): N39.0 - Urinary tract infection, site not specified Status: Acute Assessment and Plan: - UA: 2+ protein, 1+ ketones, 3+ blood, positive nitrates, 21 to 50 RBC and WBC, and 4+ bacteria - UC obtained on 05/28: pending - No previous micro to be reviewed - started on Rocephin on 05/28 (3) Acute kidney injury: Code(s): N17.9 - Acute kidney failure, unspecified Status: Acute Assessment and Plan: Slight Acute kidney injury (BUN/Cr 24/1.14) on admission which is likely related to a combination of factors including dehydration from poor oral intake, vomiting/diarrhea and relative hypotension. Resolved with IV fluids Avoid all nephrotoxic agents and renally dose all medications. (4) Dehydration: Code(s): E86.0 - Dehydration Status: Acute Assessment and Plan: Likely secondary to poor oral intake, vomiting, and diarrhea Received IV fluids Monitor Patient had one episode of vomiting and continues to have diarrhea. Remains on fluids. (5) Enteritis: Code(s): K52.9 - Noninfective gastroenteritis and colitis, unspecified Status: Acute Assessment and Plan: - Flagyl started on 05/28 - C diff was negative - Stool culture sent - CT abdomen/pelvis: 1. Enhancement in the wall of the left renal pelvis and ureter suggestive of infection. 2. Fluid content in the right side of the colon suggestive of diarrhea. Enteritis is possible. 3. Slightly dilated intrahepatic bile ducts. Patient had one episode of vomiting and continues to have diarrhea. Remains on fluids. (6) Anemia: Code(s): D64.9 - Anemia, unspecified Status: Acute Assessment and Plan: Hgb 11.2 > 8.7. Likely dilutional given that patient received sepsis bolus upon admission however prior Hgb in 07/2023 was 11.5 No signs of active bleeding Iron panel and B12/folate ordered Monitor (7) Essential (primary) hypertension: Code(s): I10 - Essential (primary) hypertension Status: Acute Assessment and Plan: Chronic Irbesartan 300 mg daily placed on hold for now Resume as appropriate Blood pressures remain stable at this time (8) Hypothyroidism (acquired): Code(s): E03.9 - Hypothyroidism, unspecified Status: Acute Assessment and Plan: Continue levothyroxine and check TSH. Time Spent With Patient Time with patient: 25 - 35 minutes Subjective Date/time seen: 05/28/24 07:27 Interval history: 78-year-old female with history of C diff colitis, collagenous colitis, gastric ulcer, hypertension, and hypothyroidism who presented to the hospital via private vehicle with complaints of weakness. Patient is pleasant lying comfortably in bed. She continues to endorse burning pain with urination, urinary fullness and trickling of urine. She had an episode of vomiting today and continues to have diarrhea. She has no other complaints denying chest pain, shortness of breath, palpitations. Review of Systems Review of Systems: All systems reviewed & are unremarkable except as noted in HPI and below Exam Narrative: AF HR 84 RR 18 SpO2 96 BP 114/49 General: female in no acute respiratory distress who is nontoxic appearing, lying semi recumbent in bed. HEENT: Normocephalic. Atraumatic. Extraocular movement intact. Sclera clear and anicteric. No facial asymmetry. Chest: Lungs are clear to auscultation bilaterally. No wheezes or crackles. CV: Heart was regular rate and rhythm. S1-S2. No murmurs, gallops, or rubs. Abd: Abdomen was soft. Nontender. Nondistended. Positive bowel sounds. Ext: No clubbing, cyanosis, or edema. 2+ DP pulses bilaterally. Neuro: Patient is alert. Speech is clear. Objective Data Vital Signs Vital Signs: Vital Signs - 24 hr 05/27/24 20:48 05/27/24 21:24 05/27/24 22:07 Temperature 101.4 F H 104 F H Pulse Rate 112 H 101 H 107 H Respiratory Rate 18 29 H 21 H Blood Pressure 132/54 L 127/56 L 116/55 L Pulse Oximetry 100 100 95 Oxygen Delivery Room Air 05/27/24 23:24 05/28/24 00:22 05/28/24 01:00 Temperature 100.5 F H Pulse Rate 92 97 87 Respiratory Rate 21 H 15 21 H Blood Pressure 110/50 L 125/58 L 118/46 L Pulse Oximetry 96 98 96 Oxygen Delivery 05/28/24 01:01 05/28/24 01:15 05/28/24 01:45 Temperature Pulse Rate 89 92 93 Respiratory Rate 25 H 26 H 23 H Blood Pressure 115/49 L 106/47 L 102/41 L Pulse Oximetry 94 96 94 Oxygen Delivery 05/28/24 02:00 05/28/24 02:49 05/28/24 06:00 Temperature 98.3 F 98.1 F Pulse Rate 93 85 80 Respiratory Rate 24 H 16 20 Blood Pressure 112/55 L 106/52 L 110/56 L Pulse Oximetry 95 93 96 Oxygen Delivery Intake/Output Intake/Output: Intake & Output 05/25/24 05/26/24 05/27/24 05/28/24 23:59 23:59 23:59 23:59 Intake Total 1999 100 Balance 1999 100 Meds/Results Medications: Active Medications Generic Name Dose Route Start Last Admin Trade Name Freq PRN Reason Stop Dose Admin Acetaminophen 650 mg 05/28/24 00:46 Acetaminophen 325 Mg Tablet PO Q4H PRN Mild Pain (1-3) or Fever Enoxaparin Sodium 40 mg 05/28/24 09:00 Enoxaparin 40 Mg/0.4 Ml Syringe SUB-Q DAILY DAVID Sodium Chloride 1,000 mls @ 80 mls/hr 05/28/24 00:50 05/28/24 03:14 Normal Saline Iv IV CONT 125 mls/hr .[id number] DAVID Administration Ceftriaxone Sodium 1 gm in 50 mls @ 100 mls/hr 05/28/24 06:00 05/28/24 06:24 Rocephin 1 Gm/Ns 50 Ml IVPB 100 mls/hr Q24H DAVID Administration Metronidazole 500 mg in 100 mls @ 100 mls/hr 05/28/24 06:00 Flagyl 500 Mg/Iso Soln 100 Ml IVPB Q8H [facility] Radiology Results: ITS Impressions Chest X-Ray 05/27/24 21:19 IMPRESSION: No acute cardiopulmonary pathology. Abdomen/Pelvis CT 05/27/24 22:09 IMPRESSION: 1. Enhancement in the wall of the left renal pelvis and ureter suggestive of infection. 2. Fluid content in the right side of the colon suggestive of diarrhea. Enteritis is possible. 3. Slightly dilated intrahepatic bile ducts. Labs Labs: Laboratory Results - last 24 hr 05/27/24 05/28/24 05/28/24 21:21 00:05 00:49 WBC 9.6 RBC 3.88 L Hgb 11.2 L Hct 33.8 L MCV 87.1 MCH 28.9 MCHC 33.1 RDW 14.6 H Plt Count 144 L MPV 11.2 H Immature Gran % (Auto) 0.2 Neut % (Auto) 85.5 H Lymph % (Auto) 4.0 L [place] % (Auto) 10.1 H Eos % (Auto) 0.1 Baso % (Auto) 0.1 L Lymph # (Auto) 0.39 L [place] # (Auto) 1.0 H Eos # (Auto) 0.0 Baso # (Auto) 0.0 Abs Immat Gran (auto) 0.02 Absolute Neuts (auto) 8.2 H Absolute Nucleated RBC 0.000 Nucleated RBC % 0.0 % Immature Plt Fraction Sodium 134 L Potassium 3.6 Chloride 98 Carbon Dioxide 23 Anion Gap 13 H BUN 24 H D Creatinine 1.14 H Estim Creat Clear Calc 33 Estimated GFR 46 L Glucose 143 H Lactic Acid 1.5 Calcium 9.1 Magnesium 1.6 Total Bilirubin 0.8 AST 32 ALT 20 Alkaline Phosphatase 77 Total Protein 7.0 Albumin 4.0 Procalcitonin 8.2 TSH (Reflex) Urine Color Yellow Urine Appearance Cloudy H Urine pH 5.0 Ur Specific [place] 1.041 H Urine Protein 2+ H Urine Glucose (UA) Negative Urine Ketones 1+ H Ur Blood (Man) 3+ H Urine Nitrate Positive H Urine Bilirubin Negative Urine Urobilinogen 0.2 Add Ur Microanalysis Reviewed Leukocyte Esterase Rfl 1+ H Urine RBC 21-50 H Urine WBC 21-50 H Ur Squamous Epith Cells None seen Urine Bacteria 4+ H Urine Casts 11-20 Urine Yeast (Budding) Present H C. difficile (PCR) Negative Influenza A (RT-PCR) Negative Influenza B (RT-PCR) Negative RSV (RT-PCR) Negative SARS-CoV-2 RNA (RT-PCR) Negative 05/28/24 06:03 WBC 6.5 RBC 3.06 L Hgb 8.7 L Hct 27.4 L MCV 89.5 MCH 28.4 MCHC 31.8 L RDW 14.6 H Plt Count 118 L MPV 11.4 H Immature Gran % (Auto) Neut % (Auto) Lymph % (Auto) [place] % (Auto) Eos % (Auto) Baso % (Auto) Lymph # (Auto) [place] # (Auto) Eos # (Auto) Baso # (Auto) Abs Immat Gran (auto) Absolute Neuts (auto) Absolute Nucleated RBC Nucleated RBC % % Immature Plt Fraction 6.0 Sodium 134 L Potassium 3.3 L Chloride 104 Carbon Dioxide 21 L Anion Gap 9 BUN 21 H Creatinine 0.88 Estim Creat Clear Calc 44 Estimated GFR > 60 Glucose 104 Lactic Acid Calcium 7.5 L Magnesium 1.6 Total Bilirubin AST ALT Alkaline Phosphatase Total Protein Albumin Procalcitonin TSH (Reflex) 1.050 Urine Color Urine Appearance Urine pH Ur Specific [place] Urine Protein Urine Glucose (UA) Urine Ketones Ur Blood (Man) Urine Nitrate Urine Bilirubin Urine Urobilinogen Add Ur Microanalysis Leukocyte Esterase Rfl Urine RBC Urine WBC Ur Squamous Epith Cells Urine Bacteria Urine Casts Urine Yeast (Budding) C. difficile (PCR) Influenza A (RT-PCR) Influenza B (RT-PCR) RSV (RT-PCR) SARS-CoV-2 RNA (RT-PCR) Quality VTE Prophylaxis VTE prophylaxis: pharmacologic ordered
[2024-05-28] MEDS: ENOXAPARIN 40 MG/0.4 ML SYRINGE SUB-Q (09:07)
[2024-05-28] MEDS: metroNIDAZOLE 500 MG/ISO 100ML 500 MG/100 ML BAG 100 MG IVPB ×3 (09:07→21:02)
[2024-05-28] MEDS: ESCITALOPRAM OXALATE 10 MG TABLET 20 MG PO (15:23)
[2024-05-28] MEDS: CHOLECALCIFEROL 400 UNITS TABLET (VIT D) PO (15:23)
[2024-05-28] MEDS: cefTRIAXone 2 GM/NS 100 ML 2 GM/100 ML BAG IVPB (17:34)
[2024-05-28] MEDS: SODIUM CHLORIDE 0.9% IV 1,000 ML 80 ML IV CONT (19:29)
[2024-05-29] MEDS: metroNIDAZOLE 500 MG/ISO 100ML 500 MG/100 ML BAG 100 MG IVPB ×3 (05:07→21:01)
[2024-05-29] MEDS: LEVOTHYROXINE SODIUM 75 MCG TABLET PO (05:42)
[2024-05-29 06:00] VITALS: BP 119/58; PULSE 62; RESP 20; TEMP 36.9; O2SAT 95
[2024-05-29 06:29] LABS: Hematocrit 26.5 % (37.0-47.0); Hemoglobin 8.5 g/dL (12.0-15.0); Immature Platelet Fraction Pct 6.1 % (0.9-11.2); Mean Corpuscular HGB Conc 32.1 g/dl (32-36); Mean Corpuscular Hemoglobin 28.8 pg (26-34); Mean Corpuscular Volume 89.8 fl (80-100); Mean Platelet Volume 11.9 fl (7.4-10.4); Platelet Count Result 114 k/mm3 (150-375); Red Blood Count 2.95 M/mm3 (4.2-5.4); Red Cell Distribution Width 14.6 % (11.5-14.5); White Blood Count 4.6 K/mm3 (4.5-10.0)
[2024-05-29 06:38] LABS: Iron 11 ug/dL (37-170)
[2024-05-29 06:48] LABS: Alanine Aminotransferase 16 U/L (6-35); Albumin Level 2.8 g/dL (3.5-5.1); Alkaline Phosphatase 55 U/L (38-126); Anion Gap 10 mmol/L (4-12); Aspartate Amino Transferase 25 U/L (14-36); Bilirubin,Total 0.2 mg/dL (0.2-1.3); Blood Urea Nitrogen 14 mg/dL (7-17); Carbon Dioxide 19 mmol/L (22-30); Chloride 108 mmol/L (98-107); Estimated CRCL calculation 51 ml/min; Estimated Glomerular Filt Rate > 60; Glucose 90 mg/dL (65-110); Percent Iron Saturation 5 % (20-50); Potassium 3.1 mmol/L (3.4-5.0); Sodium 137 mmol/L (137-145)
[2024-05-29 07:38] LABS: Folic Acid 19.6 ng/mL (2.76->20)
[2024-05-29] MEDS: BUDESONIDE 3 MG CAP.SR.24H 6 MG PO (08:47)
[2024-05-29] MEDS: ENOXAPARIN 40 MG/0.4 ML SYRINGE SUB-Q (08:48)
[2024-05-29] MEDS: CHOLECALCIFEROL 400 UNITS TABLET (VIT D) PO (08:53)
--- NOTE | 2024-05-29 09:01 | PM.IMPN ---
Progress Note: A&P Assessment and Plan (1) Sepsis: Code(s): A41.9 - Sepsis, unspecified organism Status: Acute Assessment and Plan: Meets SIRS criteria: febrile, tachycardia, hypotension, NANCY, source - lactic acid: 1.5 - received sepsis bolus in the ED - suspected source: UTI - blood cultures drawn on 05/27: gram negative bacilli likely ecoli given urine culture. Rocephin dose increased to 2g daily on 05/28 to cover bacteremia. - UA: 2+ protein, 1+ ketones, 3+ blood, positive nitrates, 21 to 50 RBC and WBC, and 4+ bacteria - UC obtained on 05/28: ecoli pansensitive - C diff negative, stool culture pending - CXR: unremarkable - CT abdomen/pelvis: 1. Enhancement in the wall of the left renal pelvis and ureter suggestive of infection. 2. Fluid content in the right side of the colon suggestive of diarrhea. Enteritis is possible. 3. Slightly dilated intrahepatic bile ducts. Patient continues to have fevers, vital signs otherwise stable. Blood cultures positive, Rocephin dose increased at that time. (2) Urinary tract infection: Code(s): N39.0 - Urinary tract infection, site not specified Status: Acute Assessment and Plan: - UA: 2+ protein, 1+ ketones, 3+ blood, positive nitrates, 21 to 50 RBC and WBC, and 4+ bacteria - UC obtained on 05/28: Ecoli pansensitive - No previous micro to be reviewed - started on Rocephin on 05/28 (3) Acute kidney injury: Code(s): N17.9 - Acute kidney failure, unspecified Status: Acute Assessment and Plan: Slight Acute kidney injury (BUN/Cr 24/1.14) on admission which is likely related to a combination of factors including dehydration from poor oral intake, vomiting/diarrhea and relative hypotension. Resolved with IV fluids Avoid all nephrotoxic agents and renally dose all medications. (4) Dehydration: Code(s): E86.0 - Dehydration Status: Acute Assessment and Plan: Likely secondary to poor oral intake, vomiting, and diarrhea Fluids discontinued, encouraged patient to continue adequate oral intake Monitor (5) Enteritis: Code(s): K52.9 - Noninfective gastroenteritis and colitis, unspecified Status: Acute Assessment and Plan: - Flagyl started on 05/28 - C diff was negative - Stool culture sent - CT abdomen/pelvis: 1. Enhancement in the wall of the left renal pelvis and ureter suggestive of infection. 2. Fluid content in the right side of the colon suggestive of diarrhea. Enteritis is possible. 3. Slightly dilated intrahepatic bile ducts. (6) Anemia: Code(s): D64.9 - Anemia, unspecified Status: Acute Assessment and Plan: Hgb 11.2 > 8.7. Likely dilutional given that patient received sepsis bolus upon admission however prior Hgb in 07/2023 was 11.5 No signs of active bleeding, H/H remains stable Iron deficient, started on supplementation B12/folate WNL Monitor (7) Essential (primary) hypertension: Code(s): I10 - Essential (primary) hypertension Status: Acute Assessment and Plan: Chronic Irbesartan 300 mg daily placed on hold for now as blood pressures remain stable Resume as appropriate Blood pressures remain stable at this time (8) Hypothyroidism (acquired): Code(s): E03.9 - Hypothyroidism, unspecified Status: Acute Assessment and Plan: Continue levothyroxine,TSH WNL Time Spent With Patient Time with patient: 25 - 35 minutes Subjective Date/time seen: 05/29/24 09:01 Interval history: 78-year-old female with history of C diff colitis, collagenous colitis, gastric ulcer, hypertension, and hypothyroidism who presented to the hospital via private vehicle with complaints of weakness. Patient is pleasant sitting up in her chair. She states she is feeling better today. She continues to have multiple episodes of diarrhea. Denies any bleeding. She states that her urinary complaints have improved. She has no other complaints denying chest pain, shortness of breath, palpitations, nausea/vomiting and abdominal pain. Review of Systems Review of Systems: All systems reviewed & are unremarkable except as noted in HPI and below Exam Narrative: AF HR 62 RR 20 SPO2 95 BP 119/58 General: female in no acute respiratory distress who is nontoxic appearing, sitting up in chair HEENT: Normocephalic. Atraumatic. Extraocular movement intact. Sclera clear and anicteric. No facial asymmetry. Chest: Lungs are clear to auscultation bilaterally. No wheezes or crackles. CV: Heart was regular rate and rhythm. S1-S2. No murmurs, gallops, or rubs. Abd: Abdomen was soft. Nontender. Nondistended. Positive bowel sounds. Ext: No clubbing, cyanosis, or edema. 2+ DP pulses bilaterally. Neuro: Patient is alert. Speech is clear. Objective Data Vital Signs Vital Signs: Vital Signs - 24 hr 05/28/24 09:05 05/28/24 09:58 05/28/24 14:00 Temperature 97.6 F Pulse Rate 84 Respiratory Rate 18 Blood Pressure 114/49 L Pulse Oximetry 96 96 Oxygen Delivery Room Air Room Air 05/28/24 20:00 05/28/24 20:29 05/29/24 06:00 Temperature 101.2 F H 98.5 F Pulse Rate 82 82 62 Respiratory Rate 20 20 20 Blood Pressure 121/53 L 119/58 L Pulse Oximetry 93 93 95 Oxygen Delivery Room Air Intake/Output Intake/Output: Intake & Output 05/26/24 05/27/24 05/28/24 05/29/24 23:59 23:59 23:59 23:59 Intake Total 1999 2270.0 300 Balance 1999 2270.0 300 Meds/Results Medications: Active Medications Generic Name Dose Route Start Last Admin Trade Name Freq PRN Reason Stop Dose Admin Acetaminophen 650 mg 05/28/24 00:46 Acetaminophen 325 Mg Tablet PO Q4H PRN Mild Pain (1-3) or Fever Budesonide 6 mg 05/29/24 09:00 05/29/24 08:47 Budesonide 3 Mg Cap.Sr.24h PO 6 mg DAILY DAVID Administration Enoxaparin Sodium 40 mg 05/28/24 09:00 05/29/24 08:48 Enoxaparin 40 Mg/0.4 Ml Syringe SUB-Q 40 mg DAILY DAVID Administration Escitalopram Oxalate 20 mg 05/28/24 15:20 05/28/24 15:23 Escitalopram Oxalate 10 Mg Tablet PO 20 mg DAILY DAVID Administration Sodium Chloride 1,000 mls @ 80 mls/hr 05/28/24 00:50 05/28/24 19:29 Normal Saline Iv IV CONT 80 mls/hr .[id number] DAVID Administration Metronidazole 500 mg in 100 mls @ 100 mls/hr 05/28/24 06:00 05/29/24 05:07 Flagyl 500 Mg/Iso Soln 100 Ml IVPB 100 mls/hr Q8H DAVID Administration Ceftriaxone Sodium 2 gm in 100 mls @ 200 mls/hr 05/28/24 18:00 05/28/24 17:34 Rocephin 2 Gm/Ns 100 Ml IVPB 200 mls/hr Q24H DAVID Administration Levothyroxine Sodium 75 mcg 05/29/24 06:30 05/29/24 05:42 Levothyroxine Sodium 75 Mcg Tablet PO 75 mcg DAILY@0630 DAVID Administration Pantoprazole Sodium 40 mg 05/28/24 15:17 Pantoprazole 40 Mg Tablet PO BID PRN GERD Vitamin D 400 units 05/28/24 15:20 05/29/24 08:53 Cholecalciferol 400 Units Tablet (Vit D) PO 400 units DAILY DAVID Administration Radiology Results: ITS Impressions Chest X-Ray 05/27/24 21:19 IMPRESSION: No acute cardiopulmonary pathology. Abdomen/Pelvis CT 05/27/24 22:09 IMPRESSION: 1. Enhancement in the wall of the left renal pelvis and ureter suggestive of infection. 2. Fluid content in the right side of the colon suggestive of diarrhea. Enteritis is possible. 3. Slightly dilated intrahepatic bile ducts. Labs Labs: Laboratory Results - last 24 hr 05/29/24 05:46 WBC 4.6 RBC 2.95 L Hgb 8.5 L Hct 26.5 L MCV 89.8 MCH 28.8 MCHC 32.1 RDW 14.6 H Plt Count 114 L MPV 11.9 H % Immature Plt Fraction 6.1 Sodium 137 Potassium 3.1 L Chloride 108 H Carbon Dioxide 19 L Anion Gap 10 BUN 14 D Creatinine 0.75 Estim Creat Clear Calc 51 Estimated GFR > 60 Glucose 90 Calcium 8.0 L Iron 11 L TIBC 221 L % Saturation 5 L Total Bilirubin 0.2 AST 25 ALT 16 Alkaline Phosphatase 55 Total Protein 5.0 L Albumin 2.8 L Vitamin B12 342.0 Folate 19.6 Quality VTE Prophylaxis VTE prophylaxis: pharmacologic ordered
[2024-05-29] MEDS: POTASSIUM CHLORIDE 20 MEQ ER TABLET 40 MEQ PO (10:03)
[2024-05-29] MEDS: ACETAMINOPHEN 325 MG TABLET 650 MG PO (10:30)
[2024-05-29] MEDS: ESCITALOPRAM OXALATE 10 MG TABLET 20 MG PO (13:09)
[2024-05-29 14:00] VITALS: BP 118/60; PULSE 62; RESP 18; TEMP 36.3; O2SAT 96
[2024-05-29] MEDS: cefTRIAXone 2 GM/NS 100 ML 2 GM/100 ML BAG IVPB (17:10)
[2024-05-29] MEDS: FERROUS SULFATE 325 MG TABLET DR PO (17:10)
[2024-05-29 20:38] VITALS: BP 117/62; PULSE 66; RESP 20; TEMP 36.4; O2SAT 97
[2024-05-29 20:50] VITALS: PULSE 66; RESP 20; O2SAT 97
[2024-05-29] MEDS: MELATONIN 5 MG TABLET PO (22:21)
--- NOTE | 2024-05-30 00:37 | PC.NURSE ---
daylight savings time
--- NOTE | 2024-05-30 03:04 | PC.NURSE ---
Daylight Savings Time For Daylight Savings Time Ending in the Fall - Clocks are moved back. For Daylight Savings Time Beginning in the Spring - Clocks are moved ahead. For [facility], the time of change occurs at 0200 hrs. Time is taken from the server programmer. This entry on the patient's chart recognizes the change in time reflected during documentation. Example: 2 entries for vital signs may be charted for 0200 hrs.
[2024-05-30 05:26] VITALS: BP 127/55; PULSE 55; RESP 20; TEMP 36.2; O2SAT 99
[2024-05-30] MEDS: LEVOTHYROXINE SODIUM 75 MCG TABLET PO (05:32)
[2024-05-30] MEDS: metroNIDAZOLE 500 MG/ISO 100ML 500 MG/100 ML BAG 100 MG IVPB ×3 (05:32→20:36)
[2024-05-30 06:03] LABS: Hematocrit 29.9 % (37.0-47.0); Hemoglobin 9.4 g/dL (12.0-15.0); Mean Corpuscular HGB Conc 31.4 g/dl (32-36); Mean Corpuscular Hemoglobin 28.2 pg (26-34); Mean Corpuscular Volume 89.8 fl (80-100); Mean Platelet Volume 11.4 fl (7.4-10.4); Platelet Count Result 159 k/mm3 (150-375); Red Blood Count 3.33 M/mm3 (4.2-5.4); Red Cell Distribution Width 14.6 % (11.5-14.5); White Blood Count 5.2 K/mm3 (4.5-10.0)
[2024-05-30 06:12] LABS: Alanine Aminotransferase 19 U/L (6-35); Albumin Level 3.2 g/dL (3.5-5.1); Alkaline Phosphatase 51 U/L (38-126); Anion Gap 11 mmol/L (4-12); Aspartate Amino Transferase 23 U/L (14-36); Bilirubin,Total 0.2 mg/dL (0.2-1.3); Blood Urea Nitrogen 15 mg/dL (7-17); Calcium 8.5 mg/dL (8.4-10.2); Carbon Dioxide 21 mmol/L (22-30); Chloride 107 mmol/L (98-107); Estimated CRCL calculation 53 ml/min; Estimated Glomerular Filt Rate > 60; Glucose 93 mg/dL (65-110); Potassium 3.3 mmol/L (3.4-5.0); Sodium 139 mmol/L (137-145)
--- NOTE | 2024-05-30 08:50 | PM.IMPN ---
Progress Note: A&P Assessment and Plan (1) Sepsis: Code(s): A41.9 - Sepsis, unspecified organism Status: Acute Assessment and Plan: Meets SIRS criteria: febrile, tachycardia, hypotension, NANCY, source - lactic acid: 1.5 - received sepsis bolus in the ED - suspected source: UTI - blood cultures drawn on 05/27: Ecoli. Rocephin dose increased to 2g daily on 05/28 to cover bacteremia. - UA: 2+ protein, 1+ ketones, 3+ blood, positive nitrates, 21 to 50 RBC and WBC, and 4+ bacteria - UC obtained on 05/28: ecoli pansensitive - C diff negative, stool culture pending - CXR: unremarkable - CT abdomen/pelvis: 1. Enhancement in the wall of the left renal pelvis and ureter suggestive of infection. 2. Fluid content in the right side of the colon suggestive of diarrhea. Enteritis is possible. 3. Slightly dilated intrahepatic bile ducts. WBC WNL. Continues to have fevers, vital signs otherwise stable. Blood cultures positive for EColi, Rocephin dose increased at that time. Will repeat blood cultures. (2) Urinary tract infection: Code(s): N39.0 - Urinary tract infection, site not specified Status: Acute Assessment and Plan: - UA: 2+ protein, 1+ ketones, 3+ blood, positive nitrates, 21 to 50 RBC and WBC, and 4+ bacteria - UC obtained on 05/28: Ecoli pansensitive - No previous micro to be reviewed - started on Rocephin on 05/28 No longer having urinary symptoms. (3) Acute kidney injury: Code(s): N17.9 - Acute kidney failure, unspecified Status: Acute Assessment and Plan: Slight Acute kidney injury (BUN/Cr 24/1.14) on admission which is likely related to a combination of factors including dehydration from poor oral intake, vomiting/diarrhea and relative hypotension. Resolved with IV fluids Avoid all nephrotoxic agents and renally dose all medications. (4) Dehydration: Code(s): E86.0 - Dehydration Status: Acute Assessment and Plan: Likely secondary to poor oral intake, vomiting, and diarrhea Fluids discontinued, encouraged patient to continue adequate oral intake Monitor (5) Enteritis: Code(s): K52.9 - Noninfective gastroenteritis and colitis, unspecified Status: Acute Assessment and Plan: - Flagyl started on 05/28 - C diff was negative - Stool culture sent - CT abdomen/pelvis: 1. Enhancement in the wall of the left renal pelvis and ureter suggestive of infection. 2. Fluid content in the right side of the colon suggestive of diarrhea. Enteritis is possible. 3. Slightly dilated intrahepatic bile ducts. Patient continues to endorse soft stools but frequency has significantly decreased. (6) Anemia: Code(s): D64.9 - Anemia, unspecified Status: Acute Assessment and Plan: Hgb 11.2 > 8.7. Likely dilutional given that patient received sepsis bolus upon admission however prior Hgb in 07/2023 was 11.5 No signs of active bleeding, H/H remains stable Iron deficient, started on supplementation B12/folate WNL Monitor (7) Essential (primary) hypertension: Code(s): I10 - Essential (primary) hypertension Status: Acute Assessment and Plan: Chronic Irbesartan 300 mg daily placed on hold for now as blood pressures remain stable Resume as appropriate Blood pressures remain stable at this time (8) Hypothyroidism (acquired): Code(s): E03.9 - Hypothyroidism, unspecified Status: Acute Assessment and Plan: Continue levothyroxine,TSH WNL Time Spent With Patient Time with patient: 25 - 35 minutes Subjective Date/time seen: 05/30/24 08:50 Interval history: 78-year-old female with history of C diff colitis, collagenous colitis, gastric ulcer, hypertension, and hypothyroidism who presented to the hospital via private vehicle with complaints of weakness. Patient is pleasant sitting up in her chair. She has no complaints at this time denying chest pain, shortness of breath, palpitations, nausea/vomiting and abdominal pain. She notes that her diarrhea has much improved and she is now having soft formed stools at a decreased frequency. She continues to have fevers overnight. Will redraw blood cultures. Review of Systems Review of Systems: All systems reviewed & are unremarkable except as noted in HPI and below Exam Narrative: AF HR 55 RR 20 SPO2 99 BP 127/55 General: female in no acute respiratory distress who is nontoxic appearing, sitting up in chair HEENT: Normocephalic. Atraumatic. Extraocular movement intact. Sclera clear and anicteric. No facial asymmetry. Chest: Lungs are clear to auscultation bilaterally. No wheezes or crackles. CV: Heart was regular rate and rhythm. S1-S2. No murmurs, gallops, or rubs. Abd: Abdomen was soft. Nontender. Nondistended. Positive bowel sounds. Ext: No clubbing, cyanosis, or edema. 2+ DP pulses bilaterally. Neuro: Patient is alert. Speech is clear. Objective Data Vital Signs Vital Signs: Vital Signs - 24 hr 05/29/24 08:45 05/29/24 09:15 05/29/24 10:30 Temperature Pulse Rate Respiratory Rate Blood Pressure Pulse Oximetry Oxygen Delivery Room Air Room Air Room Air 05/29/24 14:00 05/29/24 20:38 05/29/24 20:50 Temperature 97.4 F L 97.5 F L Pulse Rate 62 66 66 Respiratory Rate 18 20 20 Blood Pressure 118/60 117/62 Pulse Oximetry 96 97 97 Oxygen Delivery Room Air 05/30/24 05:26 Temperature 97.2 F L Pulse Rate 55 L Respiratory Rate 20 Blood Pressure 127/55 L Pulse Oximetry 99 Oxygen Delivery Intake/Output Intake/Output: Intake & Output 05/27/24 05/28/24 05/29/24 05/31/24 23:59 23:59 23:59 00:59 Intake Total 1999 2370.0 2380 300 Output Total 100 Balance 1999 2370.0 2280 300 Meds/Results Medications: Active Medications Generic Name Dose Route Start Last Admin Trade Name Freq PRN Reason Stop Dose Admin Acetaminophen 650 mg 05/28/24 00:46 05/29/24 10:30 Acetaminophen 325 Mg Tablet PO 650 mg Q4H PRN Administration Mild Pain (1-3) or Fever Budesonide 6 mg 05/29/24 09:00 05/29/24 08:47 Budesonide 3 Mg Cap.Sr.24h PO 6 mg DAILY DAVID Administration Enoxaparin Sodium 40 mg 05/28/24 09:00 05/29/24 08:48 Enoxaparin 40 Mg/0.4 Ml Syringe SUB-Q 40 mg DAILY DAVID Administration Escitalopram Oxalate 20 mg 05/28/24 15:20 05/29/24 13:09 Escitalopram Oxalate 10 Mg Tablet PO 20 mg DAILY DAVID Administration Ferrous Sulfate 325 mg 05/29/24 17:00 05/29/24 17:10 Ferrous Sulfate [address] PO 325 mg BID DAVID Administration Metronidazole 500 mg in 100 mls @ 100 mls/hr 05/28/24 06:00 05/30/24 05:32 Flagyl 500 Mg/Iso Soln 100 Ml IVPB 100 mls/hr Q8H DAVID Administration Ceftriaxone Sodium 2 gm in 100 mls @ 200 mls/hr 05/28/24 18:00 05/29/24 17:40 Rocephin 2 Gm/Ns 100 Ml IVPB Infused Q24H DAVID Infusion Levothyroxine Sodium 75 mcg 05/29/24 06:30 05/30/24 05:32 Levothyroxine Sodium 75 Mcg Tablet PO 75 mcg DAILY@0630 DAVID Administration Melatonin 5 mg 05/29/24 20:51 05/29/24 22:21 Melatonin 5 Mg Tablet PO 5 mg HS PRN Administration Insomnia Pantoprazole Sodium 40 mg 05/28/24 15:17 Pantoprazole 40 Mg Tablet PO BID PRN GERD Vitamin D 400 units 05/28/24 15:20 05/29/24 08:53 Cholecalciferol 400 Units Tablet (Vit D) PO 400 units DAILY DAVID Administration Radiology Results: ITS Impressions Chest X-Ray 05/27/24 21:19 IMPRESSION: No acute cardiopulmonary pathology. Abdomen/Pelvis CT 05/27/24 22:09 IMPRESSION: 1. Enhancement in the wall of the left renal pelvis and ureter suggestive of infection. 2. Fluid content in the right side of the colon suggestive of diarrhea. Enteritis is possible. 3. Slightly dilated intrahepatic bile ducts. Labs Labs: Laboratory Results - last 24 hr 05/30/24 05:30 WBC 5.2 RBC 3.33 L Hgb 9.4 L Hct 29.9 L MCV 89.8 MCH 28.2 MCHC 31.4 L RDW 14.6 H Plt Count 159 MPV 11.4 H Sodium 139 Potassium 3.3 L Chloride 107 Carbon Dioxide 21 L Anion Gap 11 BUN 15 Creatinine 0.73 Estim Creat Clear Calc 53 Estimated GFR > 60 Glucose 93 Calcium 8.5 Total Bilirubin 0.2 AST 23 ALT 19 Alkaline Phosphatase 51 Total Protein 6.0 L Albumin 3.2 L Quality VTE Prophylaxis VTE prophylaxis: pharmacologic ordered
[2024-05-30] MEDS: CHOLECALCIFEROL 400 UNITS TABLET (VIT D) PO (09:36)
[2024-05-30] MEDS: FERROUS SULFATE 325 MG TABLET DR PO ×2 (09:36→17:33)
[2024-05-30] MEDS: BUDESONIDE 3 MG CAP.SR.24H 6 MG PO (09:36)
[2024-05-30] MEDS: ESCITALOPRAM OXALATE 10 MG TABLET 20 MG PO (09:37)
[2024-05-30] MEDS: ENOXAPARIN 40 MG/0.4 ML SYRINGE SUB-Q (09:37)
[2024-05-30 14:00] VITALS: BP 110/50; PULSE 68; RESP 20; TEMP 36.1; O2SAT 97
[2024-05-30] MEDS: POTASSIUM CHLORIDE 20 MEQ ER TABLET 40 MEQ PO (17:32)
[2024-05-30] MEDS: cefTRIAXone 2 GM/NS 100 ML 2 GM/100 ML BAG IVPB (17:33)
[2024-05-30] MEDS: MELATONIN 5 MG TABLET PO (20:45)
[2024-05-30 22:20] VITALS: BP 137/64; PULSE 61; RESP 16; TEMP 37.1; O2SAT 97
[2024-05-31] MEDS: ACETAMINOPHEN 325 MG TABLET 650 MG PO (00:49)
[2024-05-31 05:44] LABS: Hemoglobin 9.3 g/dL (12.0-15.0); Mean Corpuscular Hemoglobin 27.8 pg (26-34); Mean Corpuscular Volume 89.6 fl (80-100); Mean Platelet Volume 10.9 fl (7.4-10.4); Platelet Count Result 166 k/mm3 (150-375); Red Blood Count 3.35 M/mm3 (4.2-5.4); Red Cell Distribution Width 14.6 % (11.5-14.5); White Blood Count 6.8 K/mm3 (4.5-10.0)
[2024-05-31 05:57] LABS: Alanine Aminotransferase 18 U/L (6-35); Albumin Level 3.2 g/dL (3.5-5.1); Alkaline Phosphatase 53 U/L (38-126); Anion Gap 9 mmol/L (4-12); Aspartate Amino Transferase 27 U/L (14-36); Bilirubin,Total 0.2 mg/dL (0.2-1.3); Blood Urea Nitrogen 12 mg/dL (7-17); Calcium 8.7 mg/dL (8.4-10.2); Carbon Dioxide 23 mmol/L (22-30); Chloride 108 mmol/L (98-107); Estimated CRCL calculation 47 ml/min; Estimated Glomerular Filt Rate > 60; Glucose 87 mg/dL (65-110); Potassium 3.4 mmol/L (3.4-5.0); Sodium 140 mmol/L (137-145)
[2024-05-31 06:00] VITALS: BP 102/40; PULSE 95; RESP 16; TEMP 36.9; O2SAT 95
[2024-05-31] MEDS: metroNIDAZOLE 500 MG/ISO 100ML 500 MG/100 ML BAG 100 MG IVPB (06:10)
[2024-05-31] MEDS: LEVOTHYROXINE SODIUM 75 MCG TABLET PO (06:10)
[2024-05-31] MEDS: FERROUS SULFATE 325 MG TABLET DR PO (08:17)
[2024-05-31] MEDS: ENOXAPARIN 40 MG/0.4 ML SYRINGE SUB-Q (08:17)
[2024-05-31] MEDS: CHOLECALCIFEROL 400 UNITS TABLET (VIT D) PO (08:17)
[2024-05-31] MEDS: ESCITALOPRAM OXALATE 10 MG TABLET 20 MG PO (08:17)
[2024-05-31] MEDS: BUDESONIDE 3 MG CAP.SR.24H 6 MG PO (08:17)
--- NOTE | 2024-05-31 12:56 | P.DS_ITS ---
DS: Admitting Diagnosis Discharge Date 05/31/2024 Admitting Diagnosis sepsis uti nancy dehydration enteritis anemia htn hypothyroidism DS: Discharge Diagnosis Discharge Diagnosis (1) Sepsis: Code(s): A41.9 - Sepsis, unspecified organism Status: Acute (2) Urinary tract infection: Code(s): N39.0 - Urinary tract infection, site not specified Status: Acute (3) Acute kidney injury: Code(s): N17.9 - Acute kidney failure, unspecified Status: Acute (4) Dehydration: Code(s): E86.0 - Dehydration Status: Acute (5) Enteritis: Code(s): K52.9 - Noninfective gastroenteritis and colitis, unspecified Status: Acute (6) Anemia: Code(s): D64.9 - Anemia, unspecified Status: Acute (7) Essential (primary) hypertension: Code(s): I10 - Essential (primary) hypertension Status: Acute (8) Hypothyroidism (acquired): Code(s): E03.9 - Hypothyroidism, unspecified Status: Acute DS: Summary Hospital Course Reason for hospitalization: sepsis uti nancy dehydration enteritis anemia htn hypothyroidism Hospital Course: 78-year-old female with history of C diff colitis, collagenous colitis, gastric ulcer, hypertension, and hypothyroidism who presented to the hospital via private vehicle with complaints of weakness. On admission patient was meeting sepsis criteria with fever, tachycardia, hypotension, NANCY. NANCY resolved with fluid resuscitation. UA was concerning for infection and patient was started on Rocephin. Urine and blood cultures grew E coli pansensitive. Rocephin dose increased to cover bacteremia. Throughout admission patient was endorsing loose stools. CT abdomen/pelvis showed enhancement in the wall of the left renal pelvis and ureter suggestive of infection, fluid content in the right side of the colon suggestive of diarrhea and enteritis. C diff negative. Diarrhea resolved during admission. Patient was started on Flagyl for enteritis. Patient discharged on oral antibiotics to complete the course for UTI, bacteremia, and enteritis at time of discharge. During admission patient was noted to be anemic, likely dilutional given that patient received sepsis bolus upon admission. H/H remained stable and there was no signs of active bleeding. Iron deficiency seen on labs. Started on supplementation. Patients blood pressures remained stable/borderline hypotensive throughout admission. At time of discharge irbesartan remains on hold until follow up with PCP. At time of discharge patient has no complaints denying chest pain, shortness a breath, palpitations, nausea/vomiting, abdominal pain, and diarrhea. Patient discharged home in a stable condition. She is to complete her antibiotics as prescribed and follow-up with her primary care provider in 1 week. Status at Discharge Functional status at discharge: independent ambulation Time Spent with Patient Time attestation: Total time spent providing and/or coordinating discharge services: Time spent: Greater than 30 minutes Exam Narrative: AF HR 95 RR 16 SpO2 95 BP 102/40 General: female in no acute respiratory distress who is nontoxic appearing, sitting up in chair HEENT: Normocephalic. Atraumatic. Extraocular movement intact. Sclera clear and anicteric. No facial asymmetry. Chest: Lungs are clear to auscultation bilaterally. No wheezes or crackles. CV: Heart was regular rate and rhythm. S1-S2. No murmurs, gallops, or rubs. Abd: Abdomen was soft. Nontender. Nondistended. Positive bowel sounds. Ext: No clubbing, cyanosis, or edema. 2+ DP pulses bilaterally. Neuro: Patient is alert. Speech is clear. DS: Data Data Completed and Pending Completed studies during hospitalization: abdomen/pelvis CT chest XR Labs on day of discharge: Labs from last 24 hours 05/31/24 05:32 WBC 6.8 RBC 3.35 L Hgb 9.3 L Hct 30.0 L MCV 89.6 MCH 27.8 MCHC 31.0 L RDW 14.6 H Plt Count 166 MPV 10.9 H Sodium 140 Potassium 3.4 Chloride 108 H Carbon Dioxide 23 Anion Gap 9 BUN 12 Creatinine 0.82 Estim Creat Clear Calc 47 Estimated GFR > 60 Glucose 87 Calcium 8.7 Total Bilirubin 0.2 AST 27 ALT 18 Alkaline Phosphatase 53 Total Protein 6.0 L Albumin 3.2 L Discharge Plan Discharge Attending physician on discharge: Luis Antonio Mclean Discharging Clinician: Monica Lujan Anticipated Discharge Date/Time: 05/31/24 12:41 Patient Disposition: Home, Self-Care Activity: as tolerated Diet: as tolerated and heart healthy Discharge Instructions: Discharge disposition: Patient admitted to the hospital for a urinary tract infection Urine and blood cultures grew Lisali Patient also diagnosed with enteritis likely causing her diarrhea Take all medications as prescribed even if feeling better Augmentin three times a day, course to be completed on 06/06 Attached is information on this medication Eat well balanced meals and stay hydrated Keep active to remain strong Avoid use of diapers or pads Good rajat Care every 2 hours Trend urine output Monitor blood pressures and record blood pressures Holding irbesartan as blood pressures have been stable without it Resume per primary care provider Take caution while standing, rising, or moving Change positions slowly taking a break between each position change If you standing feel dizzy sit back down and take a break Patient was anemic during admission Started on iron supplementation Attached is information on this medication Encouraged to continue with yearly vaccinations Return to the emergency department if he developed sudden shortness of breath, chest pain, nausea, vomiting, upset stomach or intractable diarrhea Return to the emergency department if you develop fever greater than 101.5 Follow-up with the primary care physician within 1-2 weeks Thank you for choosing [facility] for your healthcare needs Patient Instructions: Antibiotic Form, Iron Supplements (By mouth), Amoxic illin/Clavulanate Potassium (By mouth), Iron Deficiency Anemia (GEN), Enteritis (DC), Urinary Tract Infection in Older Adults (DC) Patient Language: Greenlandic Stand Alone Forms: General Discharge Information Follow-up/Referrals: Aly Westfall MD [Primary Care Provider] - 1 Week Discharge Medications: New ferrous sulfate 325 mg (65 mg iron) Tablet,Delayed Release (Dr/Ec) 325 mg PO BID Qty: 60 0RF amoxicillin-pot clavulanate 875-125 mg tablet 1 tablet PO TID Qty: 17 0RF Continued cholecalciferol (vitamin D3) [Vitamin D3] 10 mcg (400 unit) capsule 10 mcg PO DAILY fluticasone propionate [Flonase Allergy Relief] 50 mcg/actuation spray,suspension 2 spray intranasal .PRN PRN (Reason: Nasal Congestion) Rx Instructions: administer into each nostril lutein-zeaxanthin [Ocuvite Lutein 25] 25-5 mg capsule 1 cap PO DAILY fluticasone furoate-vilanterol [Breo Ellipta] 200-25 mcg/dose blister with de vice 1 inh inhalation .PRN PRN (Reason: Cough) omeprazole 40 mg capsule,delayed release(DR/EC) 40 mg PO BID PRN (Reason: GERD) levothyroxine [Synthroid] 75 mcg tablet 75 mcg PO DAILY Qty: 90 1RF escitalopram oxalate [Lexapro] 20 mg tablet 20 mg PO DAILY Qty: 90 1RF budesonide 3 mg capsule,delayed,extend.release 6 mg PO DAILY 90 Days Qty: 180 3RF Rx Instructions: TAKE 2 CAPSULES BY MOUTH DAILY Held irbesartan 300 mg tablet 300 mg PO DAILY Qty: 100 3RF Hold Instructions: Resume on 07/21/24. hold until follow up with pcp Date of admission: 05/29/24 11:43 Primary Care Provider: Aly Westfall Admitting Provider: Adrien Mcgowan Attending physician on admission: Monica Lujan Condition: Stable Hospitalist MIPS Heart Failure (Exclusion) Patient has history of Heart Transplant or Left Ventricular Assistive Device?: No IF YES, STOP HERE Heart Failure (Qualifier) Patient has current or prior documentation of LVEF less than or equal to 40%, or mod/servere depressed LVSF?: No IF NO, STOP HERE
== END 2024-05-31 13:30 | disposition home or self-care (01) | DRG 872 ==
LOC: ANHED 05-28 00:47 → ANH3MEDSUR 05-28 01:44
PROVIDERS: Physician Assistant; Admitting Provider Internal Medicine; Emergency Provider Emergency Medicine; PCP Family Medicine; Visit Provider Student in an Organized Health Care Education/Training Program
DX: A41.51 Sepsis due to Escherichia coli [E. coli] (principal); N39.0 Urinary tract infection, site not specified; N17.9 Acute kidney failure, unspecified; K52.9 Noninfective gastroenteritis and colitis, unspecified; E86.0 Dehydration; E03.9 Hypothyroidism, unspecified; D63.8 Anemia in other chronic diseases classified elsewhere; D25.9 Leiomyoma of uterus, unspecified; F40.9 Phobic anxiety disorder, unspecified; Z20.822 Contact with and (suspected) exposure to COVID-19
CPT/HCPCS: 36415; 71046; 74177; 80048; 80053; 81001; 82607; 82746; 83540; 83550; 83605; 83735; 84145; 84443; 85025; 85027; 85055; 87040; 87045; 87086; 87186; 87427; 87449; 87493; 87637; 93005; 96361; 96372; 96375; 97161; 97165; 99285; A9270; G0378; J0696; J1650; J1836; J7030; Q9967

== ENCOUNTER 2024-07-13 15:24 | Outpatient (CLI) | payer MEDICARE, SELFPAY ==
--- NOTE | ~2024-07-13 | MM_ITS ---
EXAMINATION: MM screening stefanie BI w kaylah HISTORY: Screening TECHNIQUE: Craniocaudal and mediolateral oblique 3-D tomosynthesis images were obtained and synthetic 2-D images were generated. CAD analysis was submitted and interpreted. COMPARISON: Comparison to multiple prior studies sequentially, with oldest reviewed study dated 11/2018. BREAST PARENCHYMAL COMPOSITION: Not dense: There are scattered areas of fibroglandular density. FINDINGS: There is no evidence of suspicious mass, calcification, or architectural distortion to sugg est malignancy in either breast. There has been no suspicious interval change. IMPRESSION: 1. No mammographic evidence of malignancy. 2. Recommend routine screening mammography in one year. BI-RADS Category 1: Negative Reviewed, dictated and finalized at location A.
--- OUTSIDE RECORDS SUMMARY | 2024-07-13 17:32 | XMS_ITS | Referral Summary ---
Author Organization [facility] Address [address] [place] [phone] Care Team Providers Care Refrigerator Glazier Name Role Phone Aly Westfall MD Primary Care Provider [phone] Aly Westfall MD Unavailable [phone] Encounters Date Type Department Care Team Description 05/06/2024 7:42 AM WOOD TOOL MAKER - 05/06/2024 11:59 PM WOOD TOOL MAKER Hospital Encounter [facility] [address] [place] [address] [place] [phone] Discharge Disposition: Discharge to home or self care 05/06/2024 7:42 AM WOOD TOOL MAKER - 05/06/2024 11:59 PM WOOD TOOL MAKER Hospital Encounter [facility] [address] [place] [address] [place] [phone] Discharge Disposition: Discharge to home or self care 05/06/2024 11:15 AM WOOD TOOL MAKER Office Visit [facility] [address] [place] [address] [address], [place] [phone] Cassie Ross NP Right knee pain, unspecified [...] PO Q 6 H 7 9 Active Active Problems Problem Noted Date Diagnosed Date C. difficile colitis 09/01/2018 Overview (01/21/2019): Per [facility] order signed by Dr. Neel Figueroa on 08/28/[address] [place] [address] [phone] S/P total knee arthroplasty, left 05/07/2018 [...] on file Legal Sex Female 11:58 PM WOOD TOOL MAKER Gender Identity Not on file Sexual Orientation Not on file Last Filed Vital Signs Vital Sign Reading Time Taken Comments Blood Pressure 124/70 05/06/2024 11:10 AM WOOD TOOL MAKER Pulse 75 05/06/2024 11:10 AM WOOD TOOL MAKER Temperature 37.4 C (99.3 F) 03/22/2019 12:44 PM WOOD TOOL MAKER Respiratory Rate 16 08/11/2018 4:46 PM CDT Oxygen Saturation 97% 08/11/2018 8:00 PM CDT Inhaled Oxygen Concentration - - Weight 75.5 kg (166 lb 8 oz) 05/06/2024 11:10 AM WOOD TOOL MAKER Height 157.5 cm (5' 2 ) 05/06/2024 11:10 AM WOOD TOOL MAKER Body Mass Index 30.45 05/06/2024 11:10 AM WOOD TOOL MAKER Plan of Treatment Not on file Procedures Procedure Name Priority Date/Time Associated Diagnosis Comments MS ARTHROCENTESIS ASPIR&/INJ MAJOR JT/BURSA W/O US Routine 05/06/2024 11:15 AM WOOD TOOL MAKER Primary osteoarthritis of right knee XR KNEE RIGHT 4 OR MORE VIEWS Schedule Routine, Read Routine (OP Routine) 05/06/2024 11:01 AM WOOD TOOL MAKER Right knee pain, unspecified chronicity XR PELVIS 1 OR 2 VIEWS Schedule Routine, Read Routine (OP Routine) 05/06/2024 11:00 AM WOOD TOOL MAKER Right knee pain, unspecified chronicity from Last 3 Months Results * MS ARTHROCENTESIS ASPIR&/INJ MAJOR JT/BURSA W/O US (05/06/2024 11:15 AM WOOD TOOL MAKER) Narrative Cassie Ross NP - 05/06/2024 11:15 AM WOOD TOOL MAKER Cassie Ross NP 05/06/2024 11:29 AM Large [...] well with no immediate complications Cassie Ross RADAR REPAIRER IN CLINIC/BEDSIDE ORDER TOBIAS Final Result * XR Knee Right 4 or More Views (05/06/2024 11:01 AM WOOD TOOL MAKER) Anatomical Region Laterality Modality Lower Extremities, Knee Right Digital Radiography Narrative 05/06/2024 11:16 AM WOOD TOOL MAKER Radiographs taken of the right knee today reveal moderate to severe degenerative changes with subchondral sclerosis, osteophyte formation, and diminished joint space. Cassie Ross RADAR REPAIRER IMG XR PROCEDURES Final Result * XR Pelvis 1 or 2 Views (05/06/2024 11:00 AM WOOD TOOL MAKER) Anatomical Region Laterality Modality Body, Pelvis N/A Digital Radiogra phy Narrative 05/06/2024 11:16 AM WOOD TOOL MAKER An AP pelvis taken today reveals evidence of mild degenerative changes of the bilateral hips. Cassie Ross RADAR REPAIRER IMG XR PROCEDURES Final Result from Last 3 Months Additional Health Concerns Infection Onset Date Last Indicated C. difficile Comment:SINCE 04/1006/15/2018 06/14/2018 Insurance MEDICARE COMMERCIAL GENERIC MEDICARE COMMERCIAL GENERIC MEDICARE COMMERCIAL GENERIC Care Teams Refrigerator Glazier Relationship Specialty Start Date End Date Aly Westfall MD PCP - General 06/15/18 Aly Westfall MD Family Medicine 06/15/18
--- OUTSIDE RECORDS SUMMARY | 2024-07-13 17:32 | XMS_ITS | Clinical Summary ---
Author Organization [facility] Address [address] [place] [address] Care Team Providers Care Parachute Manufacturing Supervisor Name Role Phone Aly Westfall MD Primary Care Provider [phone] Source Comments [facility],non-owned Affiliates and Associated Physician Practices is amultiple site organization consisting of ambulatory clinics and hospital sitesin [place], [place], [place] and [place]. This disclosure is being madepursuant to the Care Everywhere program and may not contain all information available regarding this patient. Last updated 17.[facility] Allergies No known active allergies Medications * Be aware that medications may not be up to date on this document. Alwaysverify current medications with the patient. escitalopram (LEXAPRO) 20 MG tablet 8 Active FLUAD 0.5 ML JAXSON injection ADM 0.5ML IM UTD 0 8 Active SYNTHROID 50 MCG tablet 8 Active vancomycin (VANCOCIN) 250 MG capsule TK ONE C PO QID 1 9 Active aspirin (ASPIRIN) 81 MG tablet Take 81 mg by mouth once daily Active Saccharomyces boulardii (FLORASTOR PO) Activ e HYDROcodone-kalyn taminophen (NORCO) 5-325 MG tablet Take 1 tablet by mouth every 4 hours as needed for Pain 40 tablet 9 Active docusate sodium (COLACE) 100 MG capsule Take 1 capsule by mouth 2 times daily as needed for Constipation 60 capsule 9 Active ondansetron, disintegrating, (ZOFRAN ODT) 4 MG tablet Take 1 tablet by mouth every 6 hours as needed for Nausea/Vomiting Allow tablet to dissolve on the tongue 10 tablet 9 Active Active Problems Problem Noted Date Diagnosed Date C. difficile colitis 09/01/2018 Overview (09/01/2018): Per [facility] order signed by Dr. Neel Figueroa on 08/28/18 [id number] [place] [address] [phone] S/P total knee arthroplasty, left 05/07/2018 Complex tear of medial menis cus of left knee as current injury 04/15/2018 Social History Tobacco Use Types Packs/Day Years Used Date Smoking Tobacco: Never Smokeless Tobacco: Never Alcohol Use Standard Drinks/Week Comments Yes 0 (1 standard drink = 0.6 oz pur e alcohol) socially Comments Unknown Sex and Gender Information Value Date Recorded Sex Assigned at Not on file Legal Sex Female 9:44 AM UNDERGROUND HEAVY EQUIPMENT OPERATOR Gender Identity Not on file Sexual Orientation Not on file Last Filed Vital Signs Vital Sign Reading Time Taken Comments Blood Pressure 119/71 09/02/2018 11:00 AM CDT Pulse 64 09/02/2018 11:00 AM CDT Temperature 37.1 C (98.8 F) 09/02/2018 11:00 AM CDT Respiratory Rate 16 09/02/2018 11:00 AM CDT Oxygen Saturation 94% 04/23/2018 9:50 AM UNDERGROUND HEAVY EQUIPMENT OPERATOR Inhaled Oxygen Concentration - - Weight 72.6 kg (160 lb) 04/23/2018 6:22 AM UNDERGROUND HEAVY EQUIPMENT OPERATOR Height 162.6 cm (5' 4 ) 04/23/2018 6:22 AM UNDERGROUND HEAVY EQUIPMENT OPERATOR Body Mass Index 27.46 04/23/2018 6:22 AM UNDERGROUND HEAVY EQUIPMENT OPERATOR Plan of Treatment Health Maintenance Due Date [...] VACCINE ( - 2023-2 5 season) 2023 DEPRESSION SCREENING 03/24/2024 INFLUENZA VACCINE (Season Ended) 2024 HEPATITIS B VACCINE Aged Out No longe r eligible based on patient's age to complete this topic HIB VACCINE Aged Out No longer eligi ble based on patient's age to complete this topic HPV VACCINE Aged Out No longer eligi ble based on patient's age to complete this topic MENINGOCOCCAL (Group B) VACC INE SHARED DECISION-MAKING Aged Out No longer eligibl e based on patient's age to complete this topic MENINGOCOCCAL GROUPS A/C/Y/W VACCINE Aged Out No longer eligible b ased on patient's age to complete this topic Insurance MEDICARE MEDICARE MEDICARE SUPPLEMENT PAYOR GENERIC SELF PAY NO INSURANCE Member Subscriber Plan / Payer (Ef fective for All Dates) Name:Abby Ivy Member ID:Not on file Relation to Subscriber:Not on file Name:CATAABBY MERRITT Subscriber ID:Not on file (Home) Address: [address] [place] [address] [place] [address] Payer ID:Not on file Group ID:Not on file Type:Self Pay Address: [place], [place] Care Teams Parachute Manufacturing Supervisor Relationship Specialty Start Date End Date Aly Westfall MD [facility] [place] [phone] PCP - General 09/02/18
--- OUTSIDE RECORDS SUMMARY | 2024-07-13 17:32 | XMS_ITS | Clinical Summary ---
Author Organization [facility] Address [address] [place] [address] Care Team Providers Care Manager Project Name Role Phone Aly Westfall MD Primary Care Provider [phone] Aly Westfall MD Unavailable [phone] Allergies No known active allergies Medications fidaxomicin [...] signed by Dr. Neel Figueroa on 08/28/[address] [place] [address] [phone] S/P total knee arthroplasty, left 05/07/2018 Complex tear of medial menis cus of left knee as current injury 04/15/2018 Atopic rhinitis 08/07/2013 Overview (06/28/2016): ALLERGIC RHINITIS NOS Encounters Date Type Department Care Team Description 05/06/2024 11:15 AM GROUP MANAGER Office Visit [facility] Medical [facility] and Sports Medicine [address] [place] [address] [address] [phone] Cassie Ross NP Right knee pain, unspecified chronicity (Primary Dx); Primary osteoarthritis of right knee 05/06/2024 7:42 AM GROUP MANAGER - 05/06/2024 11:59 PM GROUP MANAGER Hospital Encounter [facility] Orth[facility]ics and Sports Medicine [address] [place] [address] [address] [address] Discharge Disposition: Discharge to home or self care 05/06/2024 7:42 AM GROUP MANAGER - 05/06/2024 11:59 PM GROUP MANAGER Hospital Encounter [facility] Sports Medicine [address] [place] [address] [address] [phone] Discharge Disposition: Discharge to home or self care from Last 3 Months Surgical History Surgery Date Site/Laterality Comments KNEE SURGERY 2006 Knee surgery OTHER SURGICAL HISTORY 2006 hemmorhoid surgery Medical History Medical History Date Comments 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5 cm (5' 2 ) 05/06/2024 11:10 AM GROUP MANAGER Body Mass Index 30.45 05/06/2024 11:10 AM GROUP MANAGER Plan of Treatment Health Maintenance Due Date [...] Procedure Name Priority Date/Time Associated Diagnosis Comments [place] ARTHROCENTESIS ASPIR&/INJ MAJOR JT/BURSA W/O US Routine 05/06/2024 11:15 AM GROUP MANAGER Primary osteoarthritis of right knee XR KNEE RIGHT 4 OR MORE VIEWS Schedule Routine, Read Routine (OP Routine) 05/06/2024 11:01 AM GROUP MANAGER Right knee pain, unspecified chronicity XR PELVIS 1 OR 2 VIEWS Schedule Routine, Read Routine (OP Routine) 05/06/2024 11:00 AM GROUP MANAGER Right knee pain, unspecified chronicity from Last 3 Months Results * [place] ARTHROCENTESIS ASPIR&/INJ MAJOR JT/BURSA W/O US (05/06/2024 11:15 AM GROUP MANAGER) Narrative Casise Ross NP - 05/06/2024 11:15 AM GROUP MANAGER Cassie Ross NP 05/06/2024 11:29 AM Large [...] well with no immediate complications Cassie Ross FORENSIC ENGINEER IN CLINIC/BEDSIDE ORDER TOBIAS Final Result * XR Knee Right 4 or More Views (05/06/2024 11:01 AM GROUP MANAGER) Anatomical Region Laterality Modality Lower Extremities, Knee Right Digital Radiography Narrative 05/06/2024 11:16 AM GROUP MANAGER Radiographs taken of the right knee today reveal moderate to severe degenerative changes with subchondral sclerosis, osteophyte formation, and diminished joint space. Cassie Ross NP IMG XR PROCEDURES Final Result * XR Pelvis 1 or 2 Views (05/06/2024 11:00 AM GROUP MANAGER) Anatomical Region Laterality Modality Body, Pelvis N/A Digital Radiogra phy Narrative 05/06/2024 11:16 AM GROUP MANAGER An AP pelvis taken today reveals evidence of mild degenerative changes of the bilateral hips. Cassie Ross FORENSIC ENGINEER IMG XR PROCEDURES Final Result from Last 3 Months Additional Health Concerns Infection Onset Date Last Indicated C. difficile Comment:SINCE 04/1006/15/2018 06/14/2018 Insurance MEDICARE COMMERCIAL GENERIC MEDIC[place] [address] MEDICARE COMMERCIAL GENERIC Care Teams Manager Project Relationship Specialty Start Date End Date Aly Westfall MD PCP - General 06/15/18 Aly Westfall MD Family Medicine 06/15/18
== END 2024-07-13 15:25 | disposition home or self-care (01) ==
PROVIDERS: PCP Family Medicine; Visit Provider Obstetrics & Gynecology
DX: Z12.31 Encounter for screening mammogram for malignant neoplasm of breast (principal)
CPT/HCPCS: 77063; 77067